=== PATIENT | male | born 1970 | race Caucasian/White ===

== ENCOUNTER 2020-03-09 12:00 | Emergency (ER) | payer OTHER, SELFPAY ==
--- NOTE | 2020-03-09 14:44 | CT_ITS ---
EXAMINATION: CT FACIAL BONES WITH CONTRAST CLINICAL INFORMATION: 49-year-old male patient with left-sided facial swelling. Suspect dental abscess. COMPARISON: None TECHNIQUE: Axial CT of the facial bones following the intravenous administration of 85 mL Omnipaque 350. Coronal and sagittal reformats are obtained at the acquisition workstation. This CT examination was performed using dose optimization techniques as appropriate, variously including the following: *Automated exposure control *Adjustment of mA and/or kV according to patient size (this includes techniques or standardized protocols for targeted exams where dose is matched to indication/reason for exam; i.e. extremities or head) *Use of iterative reconstruction technique DLP: 355 mGy-cm FINDINGS: RN TRANSPLANT: The patient is edentulous except for one sole remaining maxillary fragmented tooth, probably the left maxillary cuspid tooth, #11. The patient has a dumbbell shaped metallic tongue piercing. The significant findings are related to the fragmented left-sided cuspid maxillary tooth. The soft tissue swelling and phlegmonous tissue reaction is seen adjacent to this tooth in addition to osteolysis of the adjacent bone representing osteomyelitis. There is bone destruction of the adjacent maxilla extending to the floor of the left maxillary sinus and also involving portions of the hard palate. Series 6, image 73. This inflammatory process also involves a significant proportion of the left maxillary sinus with abnormal soft tissue enhancement and mucoperiosteal thickening observed. The pterygoid plates are intact. The zygomatic arches are intact. The lamina papyracea are intact. The orbital rims are intact. Orbital contents are normal. Remaining paranasal sinuses are clear. There is mild right-sided deviation of the nasal septum. The ostiomeatal complexes are well aerated. The mastoid air cells and visualized middle ear cavities are well-aerated. Cerumen blocks a portion of the left external auditory canal. The TMJs are unremarkable. The imaged portions of the brain demonstrate no acute abnormality. Small reactive bilateral level 2 lymph nodes are present. The parotid and submandibular glands are homogeneous. There is normal enhancement of the carotid arteries and jugular veins. CT/CT facial bones w con IMPRESSION: The infection of the sole remaining maxillary tooth has resulted in a dental abscess with bone destruction (osteomyelitis) and extension of the inflammatory process into the left maxillary sinus.
--- NOTE | 2020-03-09 14:45 | ED_ITS ---
HPI - Dental/Oral General Chief complaint: General Medical Stated complaint: facial swelling Time Seen by Provider: 03/09/20 14:28 Source: patient Mode of arrival: ambulatory History of Present Illness HPI Narrative: 49-year-old male no significant past medical history presenting to the ED complaining of left-sided facial swelling/pain x 2 days. Reports noted area in mouth with white spot and believes it is infected. Admits had all teeth pulled about 20 years ago, now wears dentures, but has been unable to wear dentures due to pain. Denies fever, chills, sore throat, oral swelling, difficulty swallowing, ear pain MD Complaint: tooth pain Related Data Allergies Allergy/AdvReac Type Severity Reaction Status Date / Time No Known Allergies Allergy Verified 03/09/20 14:43 Review of Systems Review of Systems: Constitutional: No Weight loss, No Fever, No Chills ENT/Mouth: No Ear Pain, No Nasal Congestion, +L sided facial swelling, No Hoarseness, No sore throat, No Swallowing Difficulty, +dental pain Cardiovascular: No Chest Pain, No SOB Respiratory: No Cough Musculoskeletal: No joint pain, No Myalgias, No Joint Swelling Skin: No Skin Lesions, No rash Yes all other systems are reviewed and are negative PMFSH Past Medical History Attestation statement: The following information was validated with the patient. Social History Social History Advance Directives: No Advance Directives Information Provided: No Physical Exam Vital Signs: Vital Signs: Last Vital Signs Temp 98.8 F 03/09/20 15:40 Pulse 90 03/09/20 15:40 Resp 16 03/09/20 15:40 BP 135/84 03/09/20 15:40 Pulse Ox 95 03/09/20 15:40 Body Mass Index 24.7 Const: General: cooperative and healthy appearing Orientation/consciousness: patient oriented x3 Limitations: no limitations HENMT: Other: Left-sided facial swelling with slight erythema noted. +ttp. No fluctuance or induration. Left cupid gum inflamed and erythematous with +ttp. No fluctuance or induration Head: Yes normal to inspection Ears: hearing grossly normal bilaterally, TM normal on the right and TM abnormal obstructed by cerumen on the left General nose exam: Normal external nose present Face and sinus: No crepitus and No fluctuance Mouth: Normal oral and palatal mucosa present Throat: Yes posterior oropharynx normal, Yes tonsils normal and Yes uvula midline Eyes: General: appearance normal, both eyes and all related structures EOM: EOMs intact bilaterally Neck: Neck: Yes normal visual inspection, Yes no lymphadenopathy and Yes no meningeal signs Resp: Effort & Inspection: normal respiratory effort Cardio: Rate: regular rate GI: Inspection: Yes normal to inspection Skin: Rashes: no rashes Wounds: no wounds Neuro: General: patient oriented x3 and no meningeal signs Gait exam (Neuro): Normal gait present Extrem: General: Yes normal to inspection Course Course Course Narrative: * Mild leukocytosis of 13.4. Initial glucose noted to be low 59, patient given p.o. juice and increase to 115. Labs otherwise unremarkable * CT showing infection of the maxillary tooth which resulted in dental abscess with osteomyelitis and extension of inflammatory process into the left maxillary sinus > blood cultures, lactic, IV Zosyn and IV vancomycin ordered > case discussed with our hospitalist however do not have maxillofacial at our facility will attempt transfer to [facility] * 1740- spoke to Dr. Vega maxillofacial surgeon at [facility], will consult on patient, recommends transfer ED to ED * Spoke to ED Dr. Tristan who is accepting physician MDM - Dental/Oral MDM Narrative Medical decision making narrative: 49-year-old male no significant past medical history presenting to the ED complaining of left-sided facial swelling/pain x 2 days. On exam NAD/well-appearing, left cuspid with erythema/swelling +ttp and L facial ttp. Concerning for dental abscess. No appreciable intraoral fluctuance/induration or drainable collection. Plan: Labs, facial CT to rule out abscess Lab Data Result diagrams: 03/09/20 15:13 03/09/20 15:13 Labs: Lab Results 03/09/20 03/09/20 03/09/20 Range/Units 15:13 15:13 16:30 WBC 13.4 H (4.8-10.8) X10*3/uL RBC 5.00 (4.60-5.80) X10*6/uL Hgb 16.4 (14.0-18.0) g/dl Hct 48.4 (42-52) % MCV 96.8 (80-98) fL MCH 32.8 (27.0-33.0) pg MCHC 33.9 (31.0-36.0) g/dl RDW 12.5 (11.0-16.0) % Plt Count 335 (160-400) X10*3/uL MPV 9.5 (9.4-12.4) fL Immature Gran % (Auto) 0.4 (0.0-0.4) % Neut % (Auto) 68.2 (45-73) % Lymph % (Auto) 20.1 (20-40) % Parmer % (Auto) 10.6 (2-11) % Eos % (Auto) 0.3 (0-4) % Baso % (Auto) 0.4 (0-2) % Lymph # (Auto) 2.7 (1.2-4.9) X10*3/uL Parmer # (Auto) 1.4 H (0.1-1.2) X10*3/uL Eos # (Auto) 0.0 (0.0-0.4) X10*3/uL Baso # (Auto) 0.1 (0.0-0.2) X10*3/uL Abs Immat Gran (auto) 0.06 H (0.00-0.03) X10*3/uL Absolute Neuts (auto) 9.1 H (2.0-8.3) X10*3/uL Absolute Nucleated RBC 0.000 (0.0-0.012) X10*3/uL Nucleated RBC % (auto) 0.0 (0.0-0.2) /100WBC Sodium 135 (135-145) mmol/L Potassium 4.0 (3.3-5.1) mmol/l Chloride 97 (96-108) mmol/L Carbon Dioxide 29 (22-29) mmol/L Anion Gap 13 (12-20) BUN 10 (9-16) mg/dL Creatinine 0.77 (0.5-1.4) mg/dL Estim Creat Clear Calc 87.6 Estimated GFR > 60 POC Glucose 115 (60-115) mg/dL Random Glucose 59 L* (60-115) mg/dL Calcium 9.2 (8.4-10.2) mg/dL Discharge Plan Discharge Clinical Impression: Dental abscess, Acute osteomyelitis of maxilla Patient Disposition: [facility]
[2020-03-09 15:21] LABS: Basophils Absolute Auto 0.1 X10*3/uL (0.0-0.2); Basophils Percent Auto 0.4 % (0-2); Eosinophils Percent Auto 0.3 % (0-4); Hematocrit 48.4 % (42-52); Hemoglobin 16.4 g/dl (14.0-18.0); Imm Gran Abs Auto 0.06 X10*3/uL (0.00-0.03); Imm Gran Pct Auto 0.4 % (0.0-0.4); Lymphocytes Absolute Auto 2.7 X10*3/uL (1.2-4.9); Lymphocytes Percent Auto 20.1 % (20-40); MANUAL DIFF FLAG NO; Mean Corpuscular HGB Conc 33.9 g/dl (31.0-36.0); Mean Corpuscular Hemoglobin 32.8 pg (27.0-33.0); Mean Corpuscular Volume 96.8 fL (80-98); Mean Platelet Volume 9.5 fL (9.4-12.4); Monocytes Absolute Auto 1.4 X10*3/uL (0.1-1.2); Monocytes Percent Auto 10.6 % (2-11); Neutrophils Absolute Auto 9.1 X10*3/uL (2.0-8.3); Neutrophils Percent Auto 68.2 % (45-73); Platelet Count 335 X10*3/uL (160-400); Red Cell Distribution Width 12.5 % (11.0-16.0); White Blood Count 13.4 X10*3/uL (4.8-10.8)
[2020-03-09 15:40] VITALS: BP 135/84; PULSE 90; RESP 16; TEMP 37.1; O2SAT 95; BMI 24.7
[2020-03-09 15:51] LABS: Anion Gap 13 (12-20); Blood Urea Nitrogen 10 mg/dL (9-16); Calcium 9.2 mg/dL (8.4-10.2); Carbon Dioxide 29 mmol/L (22-29); Chloride 97 mmol/L (96-108); Creatinine Clr Calc Pharmacy 87.6; Estimated Glomerular Filt Rate > 60; Glucose Random 59 mg/dL (60-115); Sodium 135 mmol/L (135-145)
[2020-03-09] MEDS: iohexoL 350 MG/ML 100 ML INFUS..BTL 85 ML IV (16:22)
--- NOTE | 2020-03-09 16:33 | PC.NURSE ---
apple juice 4 oz given approx. 1600 for bs 59, poc at 1630 bs 115
[2020-03-09 16:34] LABS: Glucose, Whole Blood 115 mg/dL (60-115)
[2020-03-09] MEDS: Piperacillin Sodium/Tazobactam 3.375 GM in 0.9 % Sodium Chloride 50 ML IV (18:03)
[2020-03-09 18:10] LABS: COVID-19 Test Negative (Negative); IDNOW Serial# 9DD0AD1C
[2020-03-09 18:21] LABS: Lactic Acid 0.7 mmol/L (0.5-2.0)
[2020-03-09 18:23] VITALS: BP 132/79; PULSE 92; RESP 18; TEMP 36.8; O2SAT 99
--- NOTE | 2020-03-09 18:25 | PC.NURSE ---
PT EVALED BY PROVIDER. CT SHOWS OSTEO WITH MAXILLARY SINUS, BONE,PALLET INVOLVEMENT. LABS AND BLOOD CULTURES DRAWN. ABX STARTED. PT TO BE TRANSFERED TO [facility] ED CARE OF DR PACK.
[2020-03-09] MEDS: vancomycin HCL 750 MG in 0.9 % Sodium Chloride 250 ML 265 MG IV (18:31)
== END 2020-03-09 19:39 | disposition short-term general hospital (02) ==
PROVIDERS: Physician Assistant; Emergency Provider Emergency Medicine
DX: K04.7 Periapical abscess without sinus (principal); M27.2 Inflammatory conditions of jaws; Z20.828 Contact with and (suspected) exposure to other viral communicable diseases
CPT/HCPCS: 36415; 70487; 80048; 82947; 83605; 85025; 87040; 87635; 96365; 96367; 96375; 99285; J2543; J3370; Q9967

== ENCOUNTER 2020-08-02 08:08 | Outpatient (REF) | payer MEDICARE, MEDICAID, SELFPAY ==
--- NOTE | 2020-08-02 08:58 | MHC.AU.ANR ---
Adult Audiological Evaluation Date of Visit: 08/02/20 Reason for Appointment: Audiological evaluation due to history of hearing loss. Mr. Reyes reports that he first began having problems with his left ear at age 3. He had PE tubes placed ear at age 3. At age 16 he received a donor ear drum for the left ear. He states that the donor ear drum did not last long and he reports that there is significant scare tissue in his left ear. Mr. Reyes has used hearing aids in the past but states that they were lost. He is interested in trying new hearing aids. Does patient feel they have a hearing loss?: Yes If Yes, Which Ear?: Both Ears When Was Hearing Difficulty First Noticed?: 3 years old Has hearing been tested previously?: Yes Previous Hearing Test Results: Previously tested in [place], results not available for review Hearing Handicap Inventory: HHIE SCORE: 32 Based on HHIE score, patient has: Severe perceived hearing handicap Ear History: Ear Infections in Childhood: Left Ear History of Ear Wax Buildup: Left Ear Previous Ear Surgery: Left Ear Bothersome Tinnitus/Ringing/Noises in Ears: Left Ear History of occupational noise exposure?: Yes: 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 Attempted removal, too impacted and deep. Significant impaction remains Tympanometry: Tympanometry performed due to: History of middle ear dysfunction Right Ear: Normal Middle Ear System (Type A) Left Ear: Non-compliant Middle Ear System (Type B) Hearing Evaluation: Transducer(s) Used: Circumaural Headphones, Bone Conduction Method: Conventional Audiometry Stimuli Used: Pure Tones Right Ear: Description of Hearing: Normal hearing from 250-2000 Hz, sloping to a mild to moderately severe sensorineural hearing loss from 6784-2050 Hz. Left Ear: Description of Hearing: Severe conductive hearing loss from 250-500 Hz and a severe to profound mixed hearing loss from 3191-1523 Hz. Speech Recognition Threshold (SRT): Method Used: Monitored Live Voice Stimuli Used: Spondee Words Right Ear: 0 dBHL Left Ear: 80 dBHL, masked Word Discrimination: Method: Recorded Lists Word Lists Used: NU-6 Right Ear: 96% at 60 dBHL Left Ear: 24% at 95 dBHL masked 28% at 100 dBHL masked Recommendations: Audiological re-evaluation in one year. Trial with amplification is recommended. Medical clearance from a physician is required before fitting. Referral to Ear, Nose, and Throat is recommended. After patient sees ENT, he was advised to call our office to schedule a hearing aid evaluation. Diagnosis: Primary Diagnosis: H90.3 Bilateral Sensorineural Hearing Loss Secondary Diagnosis: H61.22 Impacted Cerumen, Left Ear Services Performed: Services Performed: Comprehensive Audiological Evaluation (CPT 11119) Tympanometry (CPT 02876) Signature: Provider: Kaden Pinto, CCC-A
--- NOTE | 2020-08-02 09:00 | MHC.AU.MED ---
Medical Clearance for Hearing Instrumentation Date: 08/04/20 Patient Name: Anthony Reyes Date of : 1970 Primary Care Provider: Referring Provider: Enrico Clemons MD We have seen your patient on 08/04/20 and have determined that they are a candidate for amplification (See accompanying report). Specifically, they would benefit from: Hearing aid use in both ears There is a statute that addresses Medical Evaluation Requirements prior to fitting a patient with a hearing aid. According to [place] statute 265 CMR:6.03(1), (a) General. Except as provided in 265 CMR 6.03(1)(b), a quality lab assoc shall not sell a hearing aid unless the prospective user has presented to the quality lab assoc a written statement signed by a licensed physician that states that the patient's hearing loss has been medically evaluated and the patient may be considered a candidate for a hearing aid. The medical evaluation must have taken place within the preceding six months. Please note: Due to the [place] Statute referenced above, we cannot accept a signature other than that of a licensed physician. TEXTILE CONVERSION MANAGER and PA signatures cannot be accepted. I am in agreement with the above recommendation. There is no medical contraindication for hearing instrumentation. Physician Signature Date Physician Name (Printed)
== END 2020-08-02 08:09 | disposition home or self-care (01) ==
LOC: HO.SH 08:08
PROVIDERS: Visit Provider Internal Medicine
DX: H90.3 Sensorineural hearing loss, bilateral (principal); H61.22 Impacted cerumen, left ear
CPT/HCPCS: 92557; 92567

== ENCOUNTER 2021-09-25 20:25 | Emergency (ER) | payer OTHER, SELFPAY ==
--- NOTE | ~2021-09-25 | XR_ITS ---
EXAMINATION: XR CHEST CLINICAL INFORMATION: Dyspnea COMPARISON: None TECHNIQUE: 2 views of the chest were obtained. FINDINGS: The cardiac and mediastinal contours are normal. The lungs are well inflated. The lungs are clear. There is no pleural effusion or pneumothorax. There are degenerative changes of the spine. XR/XR chest 2V IMPRESSION: Well-inflated lungs. No evidence for acute disease in the chest.
[2021-09-25 20:36] VITALS: BP 142/90; PULSE 112; RESP 16; TEMP 36.9; O2SAT 96; BMI 22.8
--- NOTE | 2021-09-25 20:42 | ECG_ITS ---
Test Reason : cp Blood Pressure : / mmHG Vent. Rate : 099 BPM Atrial Rate : 099 BPM P-R Int : 106 ms QRS Dur : 086 ms QT Int : 326 ms P-R-T Axes : 062 057 037 degrees QTc Int : 418 ms Sinus rhythm with short OK Otherwise normal ECG No previous ECGs available Referred By: Generic ED Physician Electronically Signed By:CLARA GLORIA MD
[2021-09-25 21:29] LABS: Hematocrit 42.6 % (42.0-52.0); Hemoglobin 15.3 g/dl (14.0-18.0); Mean Corpuscular HGB Conc 35.9 g/dl (31.0-36.0); Mean Corpuscular Hemoglobin 33.6 pg (27.0-33.0); Mean Corpuscular Volume 93.6 fL (80.0-98.0); Mean Platelet Volume 9.7 fL (9.4-12.4); Platelet Count 224 X10*3/uL (160-400); Red Blood Count 4.55 X10*6/uL (4.60-5.80); Red Cell Distribution Width 12.4 % (11.0-16.0); White Blood Count 8.3 X10*3/uL (4.8-10.8)
[2021-09-25 21:42] LABS: Anion Gap 17 (12-20); Blood Urea Nitrogen 12 mg/dL (9-16); Calcium 9.3 mg/dL (8.4-10.2); Carbon Dioxide 27 mmol/L (22-29); Chloride 100 mmol/L (96-108); Creatinine Clr Calc Pharmacy 81.3; D Dimer High Sensitivity 153 NG/ML; Estimated Glomerular Filt Rate > 60; Glucose Random 100 mg/dL (60-115); Sodium 140 mmol/L (135-145)
[2021-09-25 21:44] LABS: COVID-19 Test Negative (Negative); IDNOW Serial# 16C4AD1C
[2021-09-25 21:48] LABS: Troponin-I High Sensitivity 5.2 ng/L (<3.5-35.0)
--- NOTE | 2021-09-25 22:41 | ED.SOB ---
HPI - SOB/Dyspnea General Chief Complaint: Dyspnea Stated Complaint: Sob Time Seen by Provider: 09/25/21 22:20 History of Present Illness HPI Narrative: Patient is a 50-year-old male presented today with a long history of smoking. History of coughing upper respiratory symptoms. Having wheezing. Patient claims symptoms been ongoing for months. History of getting his COVID vaccine. Patient complaining of generalized malaise. No fever no chills. No diaphoresis. Patient from home. MD elicited complaint: shortness of breath Pertinent past history: COPD Related Data Previous Rx's Medication Instructions Recorded albuterol sulfate 90 mcg/actuation 2 puff inhalation Q6H PRN 09/25/21 aerosol inhaler shortness of breath or wheezing #8.5 grams prednisone 20 mg tablet 40 mg PO DAILY #10 tabs 09/25/21 Allergies Allergy/AdvReac Type Severity Reaction Status Date / Time No Known Allergies Allergy Verified 09/25/21 20:40 Review of Systems Review of Systems: Positive coughing upper respiratory symptoms Yes all other systems are reviewed and are negative PMFSH Past Medical History Attestation statement: The following information was validated with the patient. Social History Social History Advance Directives: No Physical Exam Vital Signs: Vital Signs: Last Vital Signs Temp 98.5 F 09/25/21 20:36 Pulse 112 H 09/25/21 22:45 Resp 18 09/25/21 22:45 BP 142/90 H 09/25/21 20:36 Pulse Ox 96 09/25/21 20:36 O2 Del Method 09/25/21 20:36 BMI result Body Mass Index 22.8 Appearance: Alert. Oriented X3. No acute distress. Eyes: Pupils equal, round and reactive to light. ENT: Pharynx normal. Neck: Normal inspection. Neck supple. No lymph nodes noted. No crepitus CVS: Normal heart rate and rhythm. Pulses normal. Normal S1 and S2 Respiratory: No respiratory distress. Positive expiratory wheezing noted bilaterally Abdomen: Soft and nontender. No rigidity. No distention. good BS x4 Skin: Skin warm and dry. Normal skin color. Normal skin turgor. Extremities: No lower extremity edema. Neurovascular intact to all extremities. No Lacerations. No Rash Neuro: Oriented X 3. No motor deficit. No sensory deficit. Moving all extermities. No slurred speech MDM - SOB/Dyspnea MDM Narrative Medical decision making narrative: Positive coughing upper respiratory symptoms. Patient's EKG showed a sinus pattern heart rate is 100 NV QRS QT within normal limits is no acute ST segment elevation noted. Chest x-ray showed no focal infiltrate. Patient's COVID test was negative. D-dimer son was low. In the setting of low risk for PE unlikely to have pulmonary emboli. History and symptoms consistent with COPD. Will give a dose of steroid. Will give a neb treatment. Additional albuterol given. Will give steroids on an outpatient basis O2 sats 96% on room air no distress. Patient's troponin is negative. History not consistent with ACS. Does have risk factor being smoking. Still given atypical history negative troponin unlikely ACS. Heart score is less than 3. Will discharge patient home. In stable condition. Medical Records Attestation: I reviewed the patient's medical records. Lab Data Attestation: I reviewed the patient's lab results. Result diagrams: 09/25/21 21:24 09/25/21 21:24 Labs: Lab Results 09/25/21 09/25/21 09/25/21 Range/Units 21:24 21:24 21:24 WBC 8.3 (4.8-10.8) X10*3/uL RBC 4.55 L (4.60-5.80) X10*6/uL Hgb 15.3 (14.0-18.0) g/dl Hct 42.6 (42.0-52.0) % MCV 93.6 (80.0-98.0) fL MCH 33.6 H (27.0-33.0) pg MCHC 35.9 (31.0-36.0) g/dl RDW 12.4 (11.0-16.0) % Plt Count 224 (160-400) X10*3/uL MPV 9.7 (9.4-12.4) fL Absolute Nucleated RBC 0.000 (0.0-0.012) X10*3/uL Nucleated RBC % (auto) 0.0 (0.0-0.2) /100WBC D-Dimer High Sensitivty NG/ML Sodium 140 (135-145) mmol/L Potassium 4.0 (3.3-5.1) mmol/L Chloride 100 (96-108) mmol/L Carbon Dioxide 27 (22-29) mmol/L Anion Gap 17 (12-20) BUN 12 (9-16) mg/dL Creatinine 0.82 (0.5-1.4) mg/dL Estim Creat Clear Calc 81.3 Estimated GFR > 60 Random Glucose 100 D (60-115) mg/dL Calcium 9.3 (8.4-10.2) mg/dL Troponin I High Sens 5.2 (<3.5-35.0) ng/L COVID-19 ([facility]) (Negative) COVID-19 Enhanced [employer] 09/25/21 09/25/21 Range/Units 21:24 21:24 WBC (4.8-10.8) X10*3/uL RBC (4.60-5.80) X10*6/uL Hgb (14.0-18.0) g/dl Hct (42.0-52.0) % MCV (80.0-98.0) fL MCH (27.0-33.0) pg MCHC (31.0-36.0) g/dl RDW (11.0-16.0) % Plt Count (160-400) X10*3/uL MPV (9.4-12.4) fL Absolute Nucleated RBC (0.0-0.012) X10*3/uL Nucleated RBC % (auto) (0.0-0.2) /100WBC D-Dimer High Sensitivty 153 NG/ML Sodium (135-145) mmol/L Potassium (3.3-5.1) mmol/L Chloride (96-108) mmol/L Carbon Dioxide (22-29) mmol/L Anion Gap (12-20) BUN (9-16) mg/dL Creatinine (0.5-1.4) mg/dL Estim Creat Clear Calc Estimated GFR Random Glucose (60-115) mg/dL Calcium (8.4-10.2) mg/dL Troponin I High Sens (<3.5-35.0) ng/L COVID-19 ([facility]) Negative (Negative) COVID-19 Clin Com See Note Discharge Plan Discharge Clinical Impression: COPD (chronic obstructive pulmonary disease) Patient Disposition: Home, Self-Care Instructions: COPD (Chronic Obstructive Pulmonary Disease) (ED) Prescriptions: New prednisone 20 mg tablet 40 mg PO DAILY Qty: 10 0RF albuterol sulfate 90 mcg/actuation HFA aerosol inhaler 2 puff inhalation Q6H PRN (Reason: shortness of breath or wheezing) Qty: 8.5 0RF Referrals: [facility] [place] [Physician] - Physician,None [Primary Care Provider] -
[2021-09-25] MEDS: Albuterol Sulfate 90 MCG 8 GM INHALER 2 PUFF INHALE (22:42)
[2021-09-25] MEDS: Albuterol Sulfate (0.083%) 2.5 MG/3 ML VIAL.NEB INHALE (22:43)
[2021-09-25 22:45] VITALS: PULSE 112; RESP 18; O2SAT 96
[2021-09-25] MEDS: predniSONE 20 MG TABLET 60 MG PO (22:51)
== END 2021-09-25 23:07 | disposition home or self-care (01) ==
PROVIDERS: Emergency Provider Emergency Medicine Emergency Medical Services
DX: J44.9 Chronic obstructive pulmonary disease, unspecified (principal); Z20.822 Contact with and (suspected) exposure to COVID-19; R06.02 Shortness of breath
CPT/HCPCS: 36415; 71046; 80048; 84484; 85027; 85379; 87635; 93005; 94640; 99284

== ENCOUNTER 2022-01-18 21:15 | Emergency (ER) | payer OTHER, SELFPAY ==
--- NOTE | 2022-01-18 | ECG_ITS ---
Test Reason : CHEST PAIN Blood Pressure : / mmHG Vent. Rate : 087 BPM Atrial Rate : 087 BPM P-R Int : 126 ms QRS Dur : 084 ms QT Int : 380 ms P-R-T Axes : 061 047 034 degrees QTc Int : 457 ms Normal sinus rhythm Nonspecific T wave abnormality Anterior leads Abnormal ECG When compared with ECG of 25-SEP-2021 21:10, Nonspecific T wave abnormality now evident in Anterior leads Referred By: Generic ED Physician Electronically Signed By:ASYA ALFRED MD
--- NOTE | ~2022-01-18 | XR_ITS ---
EXAMINATION: XR CHEST CLINICAL INFORMATION: Cough, fever COMPARISON: 09/25/2021 TECHNIQUE: 2 views of the chest were obtained. FINDINGS: The lungs are clear with no focal consolidation. No evidence of pneumothorax, pulmonary edema, or pleural effusions. The cardiomediastinal silhouette is unremarkable. No acute osseous findings. XR/XR chest 2V IMPRESSION: No acute cardiopulmonary findings.
[2022-01-18 23:49] VITALS: BP 115/79; PULSE 85; RESP 16; TEMP 36.6; O2SAT 97; BMI 23.9
--- NOTE | 2022-01-19 00:35 | ED.GENADULT ---
HPI - General Adult General Chief complaint: Dyspnea Stated complaint: Sob Time Seen by Provider: 01/19/22 00:20 Source: patient Limitations: no limitations History of Present Illness HPI narrative: This is a 51-year-old male with a history of COPD, who currentl s be mokes, states he wants to quit, also admits daily alcohol use, who complains of a feeling of shortness of breath and feeling like he has chest pain whenever he tries to cough and his right upper chest. The patient states that it ?feels like cancer?. Patient notes that his mother recently (2 years ago) of pulmonary fibrosis. The patient denies any fever. His cough has been nonproductive. Denies any lower extremity swelling. He does have nausea every morning but notes that he believes this is from alcohol abuse. Denies abdominal pain Related Data Previous Rx's Medication Instructions Recorded albuterol sulfate 90 mcg/actuation 2 puff inhalation Q6H PRN 09/25/21 aerosol inhaler shortness of breath or wheezing #8.5 grams prednisone 20 mg tablet 40 mg PO DAILY #10 tabs 09/25/21 Allergies Allergy/AdvReac Type Severity Reaction Status Date / Time No Known Allergies Allergy Verified 09/25/21 20:40 Review of Systems Review of Systems: Yes all other systems are reviewed and are negative Constitutional: Constitutional: Reports as per HPI and Denies fever(s) Eyes: Eyes: Reports as per HPI and Reports no additional eye complaints ENT: Reports system reviewed and no additional complaints, except as documented, Reports as per HPI, Denies nasal congestion, Denies nasal discharge and Denies sore throat Cardiovascular: Cardiovascular: Reports as per HPI, Reports chest pain and Reports dyspnea Respiratory: Respiratory: Reports as per HPI, Denies cough and Reports dyspnea Gastrointestinal: Gastrointestinal: Reports as per HPI, Denies abdominal pain, Denies diarrhea and Reports vomiting Genitourinary: Genitourinary: Reports as per HPI, Denies hematuria, Denies dysuria and Denies urinary frequency Musculoskeletal: Musculoskeletal: Reports no additional musculoskeletal complaints and Denies numbness Integumentary/Breasts: Skin/Breast: Reports as per HPI and Denies rash Neurologic: Reports as per HPI, Denies focal weakness and Denies numbness Psychiatric: Psychiatric: Reports no additional psychiatric complaints and Reports as per HPI Endocrine: Endocrine: Reports no additional endocrine complaints and Reports as per HPI Hematologic/Lymphatic: Hematologic/Lymphatic: Reports no additional hematologic/lymphatic complaints, Reports as per HPI and Reports other (No peripheral edema) [facility] Social History Social History Advance Directives: No Physical Exam ED Vital Signs: Vital Signs - 24 hr 01/18/22 23:49 01/19/22 00:47 Temperature 97.8 F Pulse Rate 85 81 Respiratory Rate 16 16 Blood Pressure 115/79 Pulse Oximetry 97 Oxygen Delivery Method Room Air BMI result Body Mass Index 23.9 Const Other: Depressed affect. Speaking in full sentences. General: no acute distress Orientation/consciousness: patient oriented x3 HENMT Head: Yes normal to inspection General nose exam: Normal external nose present Mouth: moist mucous membranes Throat: Yes posterior oropharynx normal, Yes tonsils normal and Yes uvula midline Eyes Eyelids: Yes eyelids normal Conjunctivae: conjunctivae normal Pupils: Equal, round and reactive pupils present Neck Neck: Yes supple Resp Other: Mildly decreased breath sounds bilaterally consistent with COPD. Minimal expiratory wheeze Effort & Inspection: normal respiratory effort Auscultation: clear to auscultation bilaterally Cardio Rate: regular rate Rhythm: regular rhythm Heart sounds: S1 normal heart sound present, S2 normal heart sound present, no gallops, no murmurs and no rubs GI Inspection: No distended Palpation (GI): Soft to palpation and nontender Auscultation: normal bowel sounds Skin General skin exam: other (Warm and dry) Neuro General: patient oriented x3 and CN's II-XI intact bilaterally Cranial nerves: Yes Equal, round and reactive pupils present Extrem General: Yes no pedal edema Psych Affect: normal affect Attitude: cooperative Medical Decision Making [facility] Narrative Medical decision making narrative: Patient with a complaint of shortness of breath, and chest pain associated with coughing. Chest x-ray and EKG are normal. Troponin is negative. Patient does have COPD but did not appear to have any respiratory difficulty on exam. Patient was treated with a DuoNeb as well as lorazepam. Patient does have history of substance abuse and admits daily alcohol use. Patient fell asleep and rested for most of the night and is stable for outpatient follow-up Lab Data Result diagrams: 01/19/22 00:41 01/19/22 00:41 Labs: Lab Results 11/06/0701/19/22 01/19/22 Range/Units 00:41 00:41 00:41 WBC 7.2 (4.8-10.8) X10*3/uL RBC 4.52 L (4.60-5.80) X10*6/uL Hgb 15.7 (14.0-18.0) g/dl Hct 45.1 (42.0-52.0) % MCV 99.8 H (80.0-98.0) fL MCH 34.7 H (27.0-33.0) pg MCHC 34.8 (31.0-36.0) g/dl RDW 12.2 (11.0-16.0) % Plt Count 289 D (160-400) X10*3/uL MPV 9.2 L (9.4-12.4) fL Immature Gran % (Auto) 0.3 (0.0-0.4) % Neut % (Auto) 43.9 L (45-73) % Lymph % (Auto) 43.3 H (20-40) % [place] % (Auto) 8.5 (2-11) % Eos % (Auto) 2.7 (0-4) % Baso % (Auto) 1.3 (0-2) % Lymph # (Auto) 3.1 (1.2-4.9) X10*3/uL [place] # (Auto) 0.6 (0.1-1.2) X10*3/uL Eos # (Auto) 0.2 (0.0-0.4) X10*3/uL Baso # (Auto) 0.1 (0.0-0.2) X10*3/uL Abs Immat Gran (auto) 0.02 (0.00-0.03) X10*3/uL Absolute Neuts (auto) 3.2 (2.0-8.3) x10*3/uL Absolute Nucleated RBC 0.000 (0.0-0.012) X10*3/uL Nucleated RBC % (auto) 0.0 (0.0-0.2) /100WBC Troponin I High Sens < 3.5 (<3.5-35.0) ng/L COVID-19 ([facility]) (Negative) COVID-19 Clin Com Influenza Type A ([facility]VI) Negative (Negative) Influenza Type B (TANVI) Negative (Negative) Influenza A & B Note See Note 01/19/22 Range/Units 00:41 WBC (4.8-10.8) X10*3/uL RBC (4.60-5.80) X10*6/uL Hgb (14.0-18.0) g/dl Hct (42.0-52.0) % MCV (80.0-98.0) fL MCH (27.0-33.0) pg MCHC (31.0-36.0) g/dl RDW (11.0-16.0) % Plt Count (160-400) X10*3/uL MPV (9.4-12.4) fL Immature Gran % (Auto) (0.0-0.4) % Neut % (Auto) (45-73) % Lymph % (Auto) (20-40) % [place] % (Auto) (2-11) % Eos % (Auto) (0-4) % Baso % (Auto) (0-2) % Lymph # (Auto) (1.2-4.9) X10*3/uL [place] # (Auto) (0.1-1.2) X10*3/uL Eos # (Auto) (0.0-0.4) X10*3/uL Baso # (Auto) (0.0-0.2) X10*3/uL Abs Immat Gran (auto) (0.00-0.03) X10*3/uL Absolute Neuts (auto) (2.0-8.3) x10*3/uL Absolute Nucleated RBC (0.0-0.012) X10*3/uL Nucleated RBC % (auto) (0.0-0.2) /100WBC Troponin I High Sens (<3.5-35.0) ng/L COVID-19 ([facility]) Negative (Negative) COVID-19 Clin Com See Note Influenza Type A (TANVI) (Negative) Influenza Type B (TANVI) (Negative) Influenza A & B Note Imaging Data Chest x-ray two view: Radiologist's impression: IMPRESSION: No acute cardiopulmonary findings. ECG Data Attestation: I personally reviewed and interpreted this ECG as follows: Interpretation: Sinus rhythm with a rate of 87. No ST elevation or depression. Normal QRS axis. Normal EKG Discharge Plan Discharge Clinical Impression: COPD (chronic obstructive pulmonary disease), Substance abuse Patient Disposition: Home, Self-Care Instructions: COPD (Chronic Obstructive Pulmonary Disease) (ED), Alcohol Use Disorder (ED) Additional Instructions: Find an outpatient detox center to help with her alcohol addiction. Follow-up with her primary care physician. Your chest x-ray was normal. Quit tobacco smoking Prescriptions: No Action prednisone 20 mg tablet 40 mg PO DAILY Qty: 10 0RF albuterol sulfate 90 mcg/actuation HFA aerosol inhaler 2 puff inhalation Q6H PRN (Reason: shortness of breath or wheezing) Qty: 8.5 0RF
[2022-01-19] MEDS: Albuterol/Iprat 2.5/0.5MG 3 ML AMPUL.NEB INHALE (00:45)
[2022-01-19 00:47] VITALS: PULSE 81; RESP 16; O2SAT 94
[2022-01-19 00:52] LABS: MANUAL DIFF FLAG NO
[2022-01-19 00:53] LABS: Basophils Absolute Auto 0.1 X10*3/uL (0.0-0.2); Basophils Percent Auto 1.3 % (0-2); Eosinophils Absolute Auto 0.2 X10*3/uL (0.0-0.4); Eosinophils Percent Auto 2.7 % (0-4); Hematocrit 45.1 % (42.0-52.0); Hemoglobin 15.7 g/dl (14.0-18.0); Imm Gran Abs Auto 0.02 X10*3/uL (0.00-0.03); Imm Gran Pct Auto 0.3 % (0.0-0.4); Lymphocytes Absolute Auto 3.1 X10*3/uL (1.2-4.9); Lymphocytes Percent Auto 43.3 % (20-40); Mean Corpuscular HGB Conc 34.8 g/dl (31.0-36.0); Mean Corpuscular Hemoglobin 34.7 pg (27.0-33.0); Mean Corpuscular Volume 99.8 fL (80.0-98.0); Mean Platelet Volume 9.2 fL (9.4-12.4); Monocytes Absolute Auto 0.6 X10*3/uL (0.1-1.2); Monocytes Percent Auto 8.5 % (2-11); Neutrophils Absolute Auto 3.2 x10*3/uL (2.0-8.3); Neutrophils Percent Auto 43.9 % (45-73); Platelet Count 289 X10*3/uL (160-400); Red Blood Count 4.52 X10*6/uL (4.60-5.80); Red Cell Distribution Width 12.2 % (11.0-16.0); White Blood Count 7.2 X10*3/uL (4.8-10.8)
[2022-01-19 01:09] LABS: COVID-19 Test Negative (Negative); IDNOW Serial# 16C4AD1C; Influenza A Negative (Negative); Influenza B2 Negative (Negative)
[2022-01-19 01:13] LABS: Troponin-I High Sensitivity < 3.5 ng/L (<3.5-35.0)
[2022-01-19] MEDS: LORazepam 0.5 MG TABLET PO (05:42)
== END 2022-01-19 05:52 | disposition home or self-care (01) ==
PROVIDERS: Emergency Provider Emergency Medicine
DX: J44.9 Chronic obstructive pulmonary disease, unspecified (principal); R06.02 Shortness of breath; F19.10 Other psychoactive substance abuse, uncomplicated; Z20.822 Contact with and (suspected) exposure to COVID-19; F10.10 Alcohol abuse, uncomplicated; F17.210 Nicotine dependence, cigarettes, uncomplicated; Y90.9 Presence of alcohol in blood, level not specified
CPT/HCPCS: 36415; 71046; 80053; 84484; 85025; 87502; 87635; 93005; 94640; 99284

== ENCOUNTER 2022-06-05 16:27 | Emergency (ER) | payer OTHER, SELFPAY ==
--- NOTE | ~2022-06-05 | XR_ITS ---
EXAMINATION: XR CHEST CLINICAL INFORMATION: Shortness of breath COMPARISON: 01/19/2022 TECHNIQUE: Frontal view of the chest was obtained. FINDINGS: No significant abnormality is noted involving the heart, lungs, mediastinum, bony thorax or soft tissues. XR/XR chest 1V IMPRESSION: Unremarkable examination.
--- NOTE | ~2022-06-05 | CT_ITS ---
EXAMINATION: CT CHEST WITHOUT CONTRAST CLINICAL INFORMATION: Left-sided rib pain COMPARISON: Chest x-ray 06/05/2022 TECHNIQUE: Multidetector volumetric CT imaging of the chest was done. Axial MIP volume rendering provided. Sagittal and coronal reformatted images were obtained. This CT examination was performed using dose optimization techniques as appropriate, variously including the following: *Automated exposure control *Adjustment of mA and/or kV according to patient size (this includes techniques or standardized protocols for targeted exams where dose is matched to indication/reason for exam; i.e. 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 LUNGS: The lungs are well-expanded and clear acute pneumonic process. There are punctate 1 mm calcifications scattered in left upper lobe, left lower lobe and right lower lobe. No noncalcified pulmonary nodules seen. No groundglass density, atelectasis or scarring. MEDIASTINUM: The thyroid lobes are symmetrical and normal. The central trachea and the bronchi widely patent. There are small scattered shotty lymph nodes in the mediastinum. Heart size and the great vessels are normal caliber. No pericardial effusion seen. CORONARY ARTERY CALCIFICATION: Minimal calcification is seen in the left coronary artery. PLEURA: There is no pleural effusion. No pleural mass or thickening. AXILLA: Are small shotty right axillary lymph nodes seen. Largest lymph node right axilla measures 8mm. UPPER ABDOMEN: Visualized liver, spleen, pancreas, bilateral adrenal glands are unremarkable. There are no radiopaque gallstones. OSSEOUS STRUCTURES: No aggressive lytic or sclerotic process seen. CT/CT chest wo IV con IMPRESSION: 1. No acute cardiopulmonary process seen. 2. Punctate calcifications in the left upper lobe, left lower lobe and right lower lobe. Fleischner guidelines were followed.
[2022-06-05 16:29] VITALS: BP 147/103; PULSE 139; RESP 22; TEMP 36.6; O2SAT 98; BMI 23.9
--- NOTE | 2022-06-05 16:29 | ECG_ITS ---
Test Reason : CHEST PAIN Blood Pressure : / mmHG Vent. Rate : 085 BPM Atrial Rate : 085 BPM P-R Int : 126 ms QRS Dur : 080 ms QT Int : 356 ms P-R-T Axes : 051 042 039 degrees QTc Int : 423 ms Normal sinus rhythm Normal ECG When compared with ECG of 19-JAN-2022 00:18, No significant change was found Referred By: Migue Gramajo Electronically Signed By:CLARA GLORIA MD
--- NOTE | 2022-06-05 16:33 | ED.GENADULT ---
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 (Negative) Influenza A & B Note See Note 06/05/22 06/05/22 06/05/22 Range/Units 16:50 16:50 16:50 WBC (4.8-10.8) X10*3/uL RBC (4.60-5.80) X10*6/uL Hgb (14.0-18.0) g/dl Hct (42.0-52.0) % MCV (80.0-98.0) fL MCH (27.0-33.0) pg MCHC (31.0-36.0) g/dl RDW (11.0-16.0) % Plt Count (160-400) X10*3/uL MPV (9.4-12.4) fL Immature Gran % (Auto) (0.0-0.4) % Neut % (Auto) (45-73) % Lymph % (Auto) (20-40) % [place] % (Auto) (2-11) % Eos % (Auto) (0-4) % Baso % (Auto) (0-2) % Lymph # (Auto) (1.2-4.9) X10*3/uL [place] # (Auto) (0.1-1.2) X10*3/uL Eos # (Auto) (0.0-0.4) X10*3/uL Baso # (Auto) (0.0-0.2) X10*3/uL Abs Immat Gran (auto) (0.00-0.03) X10*3/uL Absolute Neuts (auto) (2.0-8.3) x10*3/uL Absolute Nucleated RBC (0.0-0.012) X10*3/uL Nucleated RBC % (auto) (0.0-0.2) /100WBC D-Dimer High Sensitivty < 150 NG/ML Sodium (135-145) mmol/L Potassium (3.3-5.1) mmol/L Chloride (96-108) mmol/L Carbon Dioxide (22-29) mmol/L Anion Gap (12-20) BUN (9-16) mg/dL Creatinine (0.5-1.4) mg/dL Estim Creat Clear Calc Estimated GFR Random Glucose (60-115) mg/dL Calcium (8.4-10.2) mg/dL Magnesium (1.6-2.6) mg/dL Total Bilirubin (0.0-1.0) mg/dL AST (5-37) U/L ALT (0-40) U/L Alkaline Phosphatase (39-117) U/L Total Creatine Kinase (38-174) U/L Troponin I High Sens (<3.5-35.0) ng/L B-Natriuretic Peptide 12 (<100) pg/mL Total Protein (6.5-8.0) g/dL Albumin (3.5-5.0) g/dL Lipase (8-78) U/L Ethyl Alcohol mg/dL COVID-19 ([facility]) Negative (Negative) COVID-19 Clin Com See Note Influenza Type A ([facility]) (Negative) Influenza Type B ([facility]VI) (Negative) Influenza A & B Note 06/05/22 06/05/22 Range/Units 16:50 17:36 WBC (4.8-10.8) X10*3/uL RBC (4.60-5.80) X10*6/uL Hgb (14.0-18.0) g/dl Hct (42.0-52.0) % MCV (80.0-98.0) fL MCH (27.0-33.0) pg MCHC (31.0-36.0) g/dl RDW (11.0-16.0) % Plt Count (160-400) X10*3/uL MPV (9.4-12.4) fL Immature Gran % (Auto) (0.0-0.4) % Neut % (Auto) (45-73) % Lymph % (Auto) (20-40) % [place] % (Auto) (2-11) % Eos % (Auto) (0-4) % Baso % (Auto) (0-2) % Lymph # (Auto) (1.2-4.9) X10*3/uL [place] # (Auto) (0.1-1.2) X10*3/uL Eos # (Auto) (0.0-0.4) X10*3/uL Baso # (Auto) (0.0-0.2) X10*3/uL Abs Immat Gran (auto) (0.00-0.03) X10*3/uL Absolute Neuts (auto) (2.0-8.3) x10*3/uL Absolute Nucleated RBC (0.0-0.012) X10*3/uL Nucleated RBC % (auto) (0.0-0.2) /100WBC D-Dimer High Sensitivty NG/ML Sodium (135-145) mmol/L Potassium (3.3-5.1) mmol/L Chloride (96-108) mmol/L Carbon Dioxide (22-29) mmol/L Anion Gap (12-20) BUN (9-16) mg/dL Creatinine (0.5-1.4) mg/dL Estim Creat Clear Calc Estimated GFR Random Glucose (60-115) mg/dL Calcium (8.4-10.2) mg/dL Magnesium (1.6-2.6) mg/dL Total Bilirubin (0.0-1.0) mg/dL AST (5-37) U/L ALT (0-40) U/L Alkaline Phosphatase (39-117) U/L Total Creatine Kinase (38-174) U/L Troponin I High Sens < 3.5 (<3.5-35.0) ng/L B-Natriuretic Peptide (<100) pg/mL Total Protein (6.5-8.0) g/dL Albumin (3.5-5.0) g/dL Lipase 23 (8-78) U/L Ethyl Alcohol mg/dL COVID-19 ([facility]) (Negative) COVID-19 Clin Com Influenza Type A ([facility]VI) (Negative) Influenza Type B ([facility]VI) (Negative) Influenza A & B Note <Hank Quevedo MD - Last Filed: 06/05/22 19:35> Independent Interpretation I performed an independent interpretation of an: EKG <Hank Quevedo MD - Last Filed: 06/05/22 19:35> Radiology Impression Radiologist Impression: Normal sinus rhythm heart rate 85 beats per minute normal interval normal axis no acute ST changes no acute ischemia <Hank Quevedo MD - Last Filed: 06/05/22 19:35> Discharge Plan Discharge Clinical Impression: Alcoholic intoxication, Chest wall contusion <JUAN JOSE Kahn - Last Filed: 06/05/22 16:40> Patient Disposition: Home, Self-Care <JUAN JOSE Kahn - Last Filed: 06/05/22 16:40> Instructions: Acute Bronchitis (ED), Rib Contusion (ED), Alcohol Use Disorder (ED) <JUAN JOSE Kahn - Last Filed: 06/05/22 16:40> Additional Instructions: Continue use your inhaler 2 puffs every 4-6 hours as needed Prednisone and antibiotic as prescribed Cough drops as prescribed Pain medication as prescribed Ativan for alcohol withdrawal and anxiety Follow-up with detox <JUAN JOSE Kahn - Last Filed: 06/05/22 16:40> Prescriptions: New benzonatate 200 mg capsule 200 mg PO TID PRN (Reason: cough) Qty: 30 0RF prednisone 20 mg tablet 40 mg PO DAILY Qty: 10 0RF cefuroxime axetil 500 mg tablet 500 mg PO BID Qty: 20 0RF albuterol sulfate [ProAir HFA] 90 mcg/actuation HFA aerosol inhaler 2 puff inhalation Q4-6H PRN (Reason: shortness of breath or wheezing) Qty: 8.5 0RF doxycycline hyclate 100 mg tablet 100 mg PO BID Qty: 20 0RF ibuprofen 600 mg tablet 600 mg PO Q6H PRN (Reason: fever or pain) Qty: 30 0RF lorazepam [Ativan] 1 mg tablet 1 mg PO TID PRN (Reason: alcohol withdrawal) Qty: 20 0RF No Action prednisone 20 mg tablet 40 mg PO DAILY Qty: 10 0RF albuterol sulfate 90 mcg/actuation HFA aerosol inhaler 2 puff inhalation Q6H PRN (Reason: shortness of breath or wheezing) Qty: 8.5 0RF <JUAN JOSE Kahn - Last Filed: 06/05/22 16:40> Interventions: Larue-Suicide Risk Severity Scale Last Done: 06/05/22 17:09 <JUAN JOSE Kahn - Last Filed: 06/05/22 16:40>
[2022-06-05 17:01] LABS: MANUAL DIFF FLAG NO
[2022-06-05 17:03] LABS: Basophils Percent Auto 0.5 % (0-2); Eosinophils Absolute Auto 0.1 X10*3/uL (0.0-0.4); Eosinophils Percent Auto 1.4 % (0-4); Hematocrit 44.1 % (42.0-52.0); Hemoglobin 15.7 g/dl (14.0-18.0); Imm Gran Abs Auto 0.02 X10*3/uL (0.00-0.03); Imm Gran Pct Auto 0.3 % (0.0-0.4); Lymphocytes Absolute Auto 2.9 X10*3/uL (1.2-4.9); Lymphocytes Percent Auto 37.9 % (20-40); Mean Corpuscular HGB Conc 35.6 g/dl (31.0-36.0); Mean Corpuscular Hemoglobin 34.7 pg (27.0-33.0); Mean Corpuscular Volume 97.4 fL (80.0-98.0); Mean Platelet Volume 9.6 fL (9.4-12.4); Monocytes Absolute Auto 0.7 X10*3/uL (0.1-1.2); Monocytes Percent Auto 8.9 % (2-11); Neutrophils Absolute Auto 3.9 x10*3/uL (2.0-8.3); Platelet Count 218 X10*3/uL (160-400); Red Blood Count 4.53 X10*6/uL (4.60-5.80); Red Cell Distribution Width 12.2 % (11.0-16.0); White Blood Count 7.6 X10*3/uL (4.8-10.8)
[2022-06-05] MEDS: 0.9 % Sodium Chloride 1,000 ML 999 ML IV (17:08)
[2022-06-05] MEDS: LORazepam 1 MG TABLET 2 MG PO ×2 (17:08→19:33)
[2022-06-05] MEDS: LORazepam 1 MG TABLET PO (17:08)
[2022-06-05 17:17] LABS: Alanine Aminotransferase 40 U/L (0-40); Albumin Level 4.6 g/dL (3.5-5.0); Alkaline Phosphatase 92 U/L (39-117); Anion Gap 16 (12-20); Aspartate Amino Transferase 55 U/L (5-37); Bilirubin Total 1.2 mg/dL (0.0-1.0); Blood Urea Nitrogen 17 mg/dL (9-16); Calcium 9.7 mg/dL (8.4-10.2); Carbon Dioxide 27 mmol/L (22-29); Chloride 102 mmol/L (96-108); Estimated Glomerular Filt Rate > 60; Ethanol 162 mg/dL; Glucose Random 97 mg/dL (60-115); Magnesium 2.1 mg/dL (1.6-2.6); Potassium 3.3 mmol/L (3.3-5.1); Sodium 142 mmol/L (135-145); Total Protein 7.9 g/dL (6.5-8.0)
[2022-06-05 17:24] LABS: B Type Natriuretic Peptide 12 pg/mL (<100); COVID-19 Test Negative (Negative); IDNOW Serial# 08D9AD1C; IDNOW Serial# 9DB6401D; Influenza A Negative (Negative); Influenza B2 Negative (Negative)
[2022-06-05 17:25] LABS: D Dimer High Sensitivity < 150 NG/ML
[2022-06-05 17:32] LABS: Troponin-I High Sensitivity < 3.5 ng/L (<3.5-35.0)
[2022-06-05 18:10] VITALS: PULSE 84; RESP 9; O2SAT 96
[2022-06-05 18:11] LABS: Lipase 23 U/L (8-78)
[2022-06-05 18:24] VITALS: BP 125/75; PULSE 88; RESP 14; TEMP 36.7; O2SAT 94
[2022-06-05] MEDS: Thiamine HCL 100 MG TABLET PO (19:04)
[2022-06-05] MEDS: guaiFEN/Codeine SF 200/20/10ML 10 ML LIQUID PO (19:05)
[2022-06-05] MEDS: Doxycycline Monohydrate 100 MG CAPSULE PO (19:30)
[2022-06-05] MEDS: dexAMETHasone 2 MG TABLET 10 MG PO (19:30)
== END 2022-06-05 19:37 | disposition home or self-care (01) ==
PROVIDERS: Nurse Practitioner Family; Physician Assistant; Emergency Provider Internal Medicine
DX: F10.129 Alcohol abuse with intoxication, unspecified (principal); Y90.6 Blood alcohol level of 120-199 mg/100 ml; S20.212A Contusion of left front wall of thorax, initial encounter; X58.XXXA Exposure to other specified factors, initial encounter; Y93.9 Activity, unspecified; Y92.9 Unspecified place or not applicable; Y99.9 Unspecified external cause status; F17.200 Nicotine dependence, unspecified, uncomplicated; J44.9 Chronic obstructive pulmonary disease, unspecified; Z20.822 Contact with and (suspected) exposure to COVID-19
CPT/HCPCS: 36415; 71045; 71250; 80053; 82077; 82550; 83690; 83735; 83880; 84484; 85025; 85379; 87502; 87635; 93005; 94640; 96360; 96361; 99285; J8540

== ENCOUNTER 2022-11-14 09:54 | Emergency (ER) | payer OTHER, SELFPAY ==
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
[2022-11-14 09:58] VITALS: BP 140/89; PULSE 84; RESP 16; TEMP 37.2; O2SAT 98; BMI 24.8
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
[2022-11-14 13:50] VITALS: RESP 18
--- NOTE | 2022-11-14 16:02 | PC.NURSE ---
md shaffer aware pt not in room multiple times when staff came to update pt and then d/c. care clinical team lead also tried to see pt but was not in room. pt left w/o instructions or update VS as a result. pt was calm, coopeartive, aox4, appeared to be in less pain.
--- NOTE | 2022-11-15 12:55 | MHC.RECOVSUP ---
Attempted to meet with pt who is here For CLEMENTE, however pt had eloped and was not in the room when I checked.
== END 2022-11-14 15:35 | disposition left against medical advice (07) ==
PROVIDERS: Emergency Provider Student in an Organized Health Care Education/Training Program
DX: S80.212A Abrasion, left knee, initial encounter (principal); M25.462 Effusion, left knee; F10.10 Alcohol abuse, uncomplicated; M25.522 Pain in left elbow; Y90.9 Presence of alcohol in blood, level not specified; X58.XXXA Exposure to other specified factors, initial encounter; Y93.9 Activity, unspecified; Y92.9 Unspecified place or not applicable; Y99.9 Unspecified external cause status; Z79.899 Other long term (current) drug therapy
CPT/HCPCS: 73560; 99284

== ENCOUNTER 2023-01-19 08:31 | Inpatient (IN) | payer MEDICARE, MEDICAID, SELFPAY ==
[2023-01-19] VITALS (12 sets, daily range): BP systolic 99–177; BP diastolic 59–107; PULSE 81–118; RESP 13–23; TEMP 36.1–36.8; O2SAT 86–99; BMI 26.4
--- NOTE | ~2023-01-19 | XR_ITS ---
EXAMINATION: XR CHEST CLINICAL INFORMATION: Dyspnea COMPARISON: Chest x-ray and CT chest 06/05/2022 TECHNIQUE: Frontal view of the chest was obtained. FINDINGS: No significant abnormality is noted involving the heart, lungs, mediastinum, bony thorax or soft tissues. XR/XR chest 1V IMPRESSION: Unremarkable chest examination.
--- NOTE | 2023-01-19 08:42 | ECG_ITS ---
Test Reason : DYSPNEA Blood Pressure : / mmHG Vent. Rate : 098 BPM Atrial Rate : 098 BPM P-R Int : 118 ms QRS Dur : 086 ms QT Int : 326 ms P-R-T Axes : 060 021 038 degrees QTc Int : 416 ms Normal sinus rhythm Nonspecific ST and T wave abnormality Abnormal ECG When compared with ECG of 05-JUN-2022 17:18, T wave amplitude has decreased in Inferior leads ST more depressed Lateral leads Referred By: Jaelyn Gibbs Electronically Signed By:ASYA ALFRED MD
--- NOTE | 2023-01-19 08:50 | ED_ITS ---
HPI - Alcohol General Chief Complaint: General Medical Stated Complaint: Diff Breathing COPD Time Seen by Provider: 01/19/23 08:35 Source: patient and old records reviewed Mode of arrival: ambulatory Limitations: other (agitated and hard to interview) History of Present Illness HPI narrative: 52 yomale with PMH of COPD states my inhalers don't work he still smokes daily, chronic ETOH abuse who drinks a sleeve + a day and now wants to stop drinking though took a shot before arrival comes in with c/o feeling jittery, anxiety and he cannot breathe with a chronic cough. He notes no pain, feels his abdomen is swollen. He is agitated and hard to interview. States he has been seen for his COPD here before in the past. He states he is in alcohol withdrawal. He denies drug abuse states he is compliant with his suboxone, denies prior pneumonia or fevers. MD complaint: alcohol withdrawal Last drink: Hours (ago) Chronic alcohol use: Yes Previous visits for alcohol intoxication: Yes Recent trauma: No Associated symptoms: tremors and other (shortness of breath, cough) Treatments prior to arrival: none Related Data Previous Rx's Medication Instructions Recorded albuterol sulfate 90 mcg/actuation 2 puff inhalation Q6H PRN 09/25/21 aerosol inhaler shortness of breath or wheezing #8.5 grams prednisone 20 mg tablet 40 mg (2 x 20 mg) PO DAILY #10 tabs 09/25/21 albuterol sulfate 90 mcg/actuation 2 puff inhalation Q4-6H PRN 06/05/22 aerosol inhaler (ProAir HFA) shortness of breath or wheezing #8.5 grams benzonatate 200 mg capsule 200 mg PO TID PRN cough #30 caps 06/05/22 cefuroxime axetil 500 mg tablet 500 mg PO BID #20 tabs 06/05/22 doxycycline hyclate 100 mg tablet 100 mg PO BID #20 tabs 06/05/22 ibuprofen 600 mg tablet 600 mg PO Q6H PRN fever or pain 06/05/22 #30 tabs lorazepam 1 mg tablet (Ativan) 1 mg PO TID PRN alcohol withdrawal 06/05/22 #20 tabs prednisone 20 mg tablet 40 mg (2 x 20 mg) PO DAILY #10 tabs 06/05/22 Allergies Allergy/AdvReac Type Severity Reaction Status Date / Time No Known Allergies Allergy Verified 09/25/21 20:40 Review of Systems 2 Review of Systems: Constitutional : No Fever, No Chills ENT/Mouth : No sore throat, No Rhinorrhea, No Swallowing Difficulty Eyes: No Eye Pain, No Swelling, No Redness Cardiovascular : No Chest Pain, positive SOB, No Orthopnea, no edema Respiratory :pos Cough, No Sputum, pos Wheezing, positive dyspnea Gastrointestinal : No Nausea, No Vomiting, No Diarrhea, No abdominal Pain, No Hematochezia, No Melena Genitourinary : No Dysuria, No Urinary Frequency, No Hematuria Musculoskeletal : No joint pain, No Myalgias Skin : No Skin Lesions, No rash Neuro : No Weakness, No Numbness, No Dizziness, No Headache Psych :pos Anxiety/Panic, No Depression Heme/Lymph: No Bruising, No Lymphadenopathy Endocrine : No Polyuria, No Polydipsia All other systems reviewed and are negative [facility] Past Medical History Attestation statement: The following information was validated with the patient. Medical History (Updated 01/19/23 @ 10:46 by Jaelyn Gibbs DO) Amputation above knee Opiate dependence Alcohol abuse COPD (chronic obstructive pulmonary disease) Social History Social History Alcohol intake: current Alcohol intake frequency: 3 or more drinks per day Alcohol type: hard liquor Smoked in Last 30 Days: Yes Use of substances other than those prescribed or required for medical reasons: Yes Substance Use Type: Marijuana Advance Directives: No Advance Directives Information Provided: Yes Physical Exam ED Vital Signs: Vital Signs - 24 hr 01/19/23 08:38 01/19/23 08:53 01/19/23 08:59 Temperature 98.3 F Pulse Rate 118 H 106 H 102 H Respiratory Rate 16 23 H 16 Blood Pressure 177/107 H 146/96 H Pulse Oximetry 97 91 L Oxygen Delivery Method Room Air Room Air Oxygen Flow Rate 01/19/23 10:20 01/19/23 10:26 01/19/23 10:26 Temperature Pulse Rate 81 84 Respiratory Rate 14 14 Blood Pressure 101/66 102/62 Pulse Oximetry 88 L 86 L 91 L Oxygen Delivery Method Room Air Room Air Nasal Cannula Oxygen Flow Rate 2 01/19/23 10:41 Temperature Pulse Rate 92 Respiratory Rate 16 Blood Pressure Pulse Oximetry Oxygen Delivery Method Oxygen Flow Rate BMI result Body Mass Index 26.4 Appearance: Alert. Oriented X3. Mild acute distress. anxious speaking fast in full sentences agitated Eyes: Pupils equal, round and reactive to light. ENT: Pharynx normal. Neck: Normal inspection. Neck supple. CVS: tachycardic heart rate and rhythm. Pulses normal. Respiratory: No respiratory distress. Breath sounds mildly diminished Abdomen: Soft and non-tender. Skin: Skin warm and dry. Normal skin color. Normal skin turgor. Extremities: No lower extremity edema. No calf ttp Neuro: Oriented X 3. No motor deficit. No sensory deficit. tremors and restless Course Course Course Narrative: will need admission for COPD and hypoxia still hypoxic after 2nd treatment ETOh abuse at this time given COPD exacerbation will obtain lactic acid cultures and start on empiric treatments [id number] possible infection suspected Medical Decision Making Medical Decision Making [facility] Narrative: 52 yomale with PMH of COPD states my inhalers don't work , daily smoker, chronic ETOH abuse here with c/o not being able to breathe getting worse for months, ETOH withdrawal symptoms daily worse today, anxiety he is crying during the interview - at this time labs, CXR, EKG and IV thiamine, magnesium, steroids, duoneb and IV ativan ordered. He is somewhat hard to interview as he is agitated with questions. He does have tremors on exam so IV ativan ordered. He may require admission for ETOH withdrawal Differential Diagnosis Differential Diagnoses: The differential diagnosis associated with the presentation includes etoh withdrawal, reactive airway disease, lyte abnormality Admission/Observation Consideration of admission/observation: Escalation of care including admission/observation considered admit for hypoxia, COPD, ETOH abuse Consult Healthcare Provider Management of the patient was discussed with: Hospitalist (will admit) Lab Data [facility] Lab Attestation statement: I reviewed the patient's lab results. 01/19/23 08:50 01/19/23 08:50 Labs: Lab Results 01/19/23 01/19/23 01/19/23 Range/Units 08:50 08:51 09:39 WBC 6.3 (4.8-10.8) X10*3/uL RBC 4.35 L (4.60-5.80) X10*6/uL Hgb 14.8 (14.0-18.0) g/dl Hct 41.7 L (42.0-52.0) % MCV 95.9 (80.0-98.0) fL MCH 34.0 H (27.0-33.0) pg MCHC 35.5 (31.0-36.0) g/dl RDW 13.6 (11.0-16.0) % Plt Count 232 (160-400) X10*3/uL MPV 8.8 L (9.4-12.4) fL Immature Gran % (Auto) 0.2 (0.0-0.4) % Neut % (Auto) 32.0 L (45-73) % Lymph % (Auto) 54.8 H (20-40) % [place] % (Auto) 8.7 (2-11) % Eos % (Auto) 3.0 (0-4) % Baso % (Auto) 1.3 (0-2) % Lymph # (Auto) 3.5 (1.2-4.9) X10*3/uL [place] # (Auto) 0.6 (0.1-1.2) X10*3/uL Eos # (Auto) 0.2 (0.0-0.4) X10*3/uL Baso # (Auto) 0.1 (0.0-0.2) X10*3/uL Abs Immat Gran (auto) 0.01 (0.00-0.03) X10*3/uL Absolute Neuts (auto) 2.0 (2.0-8.3) x10*3/uL Absolute Nucleated RBC 0.000 (0.0-0.012) X10*3/uL Nucleated RBC % (auto) 0.0 (0.0-0.2) /100WBC Sodium 142 (135-145) mmol/L Potassium 2.9 L (3.3-5.1) mmol/L Chloride 102 (96-108) mmol/L Carbon Dioxide 28 (22-29) mmol/L Anion Gap 15 (12-20) BUN 11 (9-16) mg/dL Creatinine 0.81 (0.5-1.4) mg/dL Estim Creat Clear Calc 83.9 Estimated GFR > 60 Random Glucose 148 H (60-115) mg/dL Calcium 9.3 (8.4-10.2) mg/dL Magnesium 1.9 (1.6-2.6) mg/dL Total Bilirubin 0.5 (0.0-1.0) mg/dL Direct Bilirubin 0.2 (0.0-0.5) mg/dL AST 115 H (5-37) U/L ALT 92 H (0-40) U/L Alkaline Phosphatase 105 (39-117) U/L Troponin I High Sens < 2.7 (<3.5-35.0) ng/L B-Natriuretic Peptide 19 (<100) pg/mL Total Protein 7.7 (6.5-8.0) g/dL Albumin 4.3 (3.5-5.0) g/dL Lipase 43 (8-78) U/L Urine Color Dark Yellow Urine Appearance Clear Urine pH 6.5 (5.0-9.0) Ur Specific [place] >= 1.030 H (1.005-1.025) Urine Protein 100 (2+) H (Neg-Trace) mg/dL Urine Glucose (UA) Negative (Negative) mg/dL Urine Ketones Negative (Negative) mg/dL Urine Blood Trace H (Negative) Urine Nitrite Negative (Negative) Ur Leukocyte Esterase Negative (Negative) Urine RBC 6-10 H (0-2) /HPF Urine WBC 0-5 (0-5) /HPF Ur Squamous Epith Cells 0-2 (0-2) /HPF Urine Bacteria None Seen (None Seen) Hyaline Casts 0-2 (0-2) /LPF Urine Opiates Screen Not Detected (Not Detect) Urine Fentanyl Screen Not Detected (Not Detect) Ur Barbiturates Screen Not Detected (Not Detect) Ur Phencyclidine Scrn Not Detected (Not Detect) Ur Amphetamines Screen Not Detected (Not Detect) U Benzodiazepines Scrn Not Detected (Not Detect) Urine Cocaine Screen Not Detected (Not Detect) U Marijuana (THC) Screen POSITIVE H (Not Detect) Ethyl Alcohol 347 H* mg/dL COVID-19 ([facility]) Negative (Negative) COVID-19 Clin Com See Note Independent Interpretation I performed an independent interpretation of an: EKG and Plain X-Ray (no pneumonia) Interpretation: Rate: 98 Rhythm: NSR [place]: normal Normal P waves. Normal [place]. Normal QRS complex. ST T wave : artifact no UDAY, nonspecific lateral leads qTC: normal prior studies: no sig ischemia The study has been interpreted contemporaneously by me. . Radiology Impression Discussion of test interpretation with radiology: I have reviewed the radiologist's reading. External Record Review External record reviewed: Inpatient record Medications Administered Generic Name Dose Route Start Last Admin Trade Name Freq PRN Reason Stop Dose Admin Potassium Chloride 10 meq in 100 mls @ 100 mls/hr 01/19/23 09:30 01/19/23 10:56 Potassium Chloride/H20 IV 01/19/23 11:29 100 mls/hr Q1H LEVY Administration Azithromycin 500 mg/ Sodium 250 mls @ 125 mls/hr 01/19/23 10:44 01/19/23 11:19 Chloride IV 01/19/23 12:43 125 mls/hr ONCE ONE Administration Discontinued Medications Generic Name Dose Route Start Last Admin Trade Name Freq PRN Reason Stop Dose Admin Albuterol/Ipratropium 3 ml 01/19/23 08:52 01/19/23 08:59 Albuterol/Iprat 2.5/0.5mg 3 Ml Ampul.Neb INHALE 01/19/23 08:53 3 ml ONCE ONE Administration Albuterol/Ipratropium 3 ml 01/19/23 10:36 01/19/23 10:41 Albuterol/Iprat 2.5/0.5mg 3 Ml Ampul.Neb INHALE 01/19/23 10:37 3 ml ONCE ONE Administration Magnesium Sulfate 2 gm in 50 mls @ 25 mls/hr 01/19/23 08:41 01/19/23 10:42 Magnesium Sulfate/H2o IV 01/19/23 10:40 Infused ONCE ONE Infusion Thiamine HCl 200 mg/ Sodium 102 mls @ 204 mls/hr 01/19/23 08:41 01/19/23 10:42 Chloride IV 01/19/23 09:10 Infused ONCE ONE Infusion Ceftriaxone Sodium 1 gm/ 50 mls @ 100 mls/hr 01/19/23 10:44 01/19/23 11:06 Sodium Chloride IV 01/19/23 11:13 100 mls/hr ONCE ONE Administration Lorazepam 1 mg 01/19/23 09:00 01/19/23 09:01 Lorazepam 2 Mg/Ml Vial IVPUSH 01/19/23 09:01 1 mg STAT STA Administration Methylprednisolone Sodium Succinate 60 mg 01/19/23 09:01 01/19/23 10:28 Methylprednisolone Sod Succ 125 Mg/2 Ml Vial IVPUSH 01/19/23 09:02 60 mg ONCE ONE Administration Phenobarbital Sodium 228 mg 01/19/23 11:15 01/19/23 11:13 Phenobarbital Sodium 130 Mg/Ml Im Once IM 01/19/23 11:16 228 mg ONCE ONE Administration Protocol Potassium Chloride 40 meq 01/19/23 09:16 01/19/23 10:28 Potassium Chloride Packet 20 Meq Packet PO 01/19/23 09:17 40 meq ONCE ONE Administration Critical Care Time Critical Care Time Critical Care Time: Yes Total Critical Care Time: 45 Attestation: repeat nebs, ETOH abuse treatments, IV magnesium, IV K repletion I attest to this time spent taking care of the patient Discharge Plan Discharge Clinical Impression: Acute hypokalemia, Alcohol abuse, Hypoxia, COPD exacerbation RAD (reactive airway disease) Qualifiers: Asthma severity: moderate Asthma persistence: persistent Asthma complication type: with acute exacerbation Qualified Code(s): J45.41 - Moderate persistent asthma with (acute) exacerbation Patient Disposition: Admitted As Inpatient
[2023-01-19 08:55] LABS: MANUAL DIFF FLAG NO
[2023-01-19 08:56] LABS: Basophils Absolute Auto 0.1 X10*3/uL (0.0-0.2); Basophils Percent Auto 1.3 % (0-2); Eosinophils Absolute Auto 0.2 X10*3/uL (0.0-0.4); Hematocrit 41.7 % (42.0-52.0); Hemoglobin 14.8 g/dl (14.0-18.0); Imm Gran Abs Auto 0.01 X10*3/uL (0.00-0.03); Imm Gran Pct Auto 0.2 % (0.0-0.4); Lymphocytes Absolute Auto 3.5 X10*3/uL (1.2-4.9); Lymphocytes Percent Auto 54.8 % (20-40); Mean Corpuscular HGB Conc 35.5 g/dl (31.0-36.0); Mean Corpuscular Volume 95.9 fL (80.0-98.0); Mean Platelet Volume 8.8 fL (9.4-12.4); Monocytes Absolute Auto 0.6 X10*3/uL (0.1-1.2); Monocytes Percent Auto 8.7 % (2-11); Platelet Count 232 X10*3/uL (160-400); Red Blood Count 4.35 X10*6/uL (4.60-5.80); Red Cell Distribution Width 13.6 % (11.0-16.0); White Blood Count 6.3 X10*3/uL (4.8-10.8)
[2023-01-19] MEDS: Thiamine HCL 200 MG in 0.9 % Sodium Chloride 100 ML 204 MG IV (08:58)
[2023-01-19] MEDS: Albuterol/Iprat 2.5/0.5MG 3 ML AMPUL.NEB INHALE ×3 (08:59→19:26)
[2023-01-19] MEDS: LORazepam 2 MG/ML VIAL 1 MG IVPUSH (09:01)
[2023-01-19] MEDS: Magnesium Sulfate/H2O 2 GM/50 ML PIGGYBACK IV (09:03)
[2023-01-19 09:12] LABS: Alanine Aminotransferase 92 U/L (0-40); Albumin Level 4.3 g/dL (3.5-5.0); Alkaline Phosphatase 105 U/L (39-117); Anion Gap 15 (12-20); Aspartate Amino Transferase 115 U/L (5-37); Bilirubin Direct 0.2 mg/dL (0.0-0.5); Bilirubin Total 0.5 mg/dL (0.0-1.0); Blood Urea Nitrogen 11 mg/dL (9-16); Calcium 9.3 mg/dL (8.4-10.2); Carbon Dioxide 28 mmol/L (22-29); Chloride 102 mmol/L (96-108); Creatinine Clr Calc Pharmacy 83.9; Estimated Glomerular Filt Rate > 60; Ethanol 347 mg/dL; Glucose Random 148 mg/dL (60-115); Lipase 43 U/L (8-78); Magnesium 1.9 mg/dL (1.6-2.6); Potassium 2.9 mmol/L (3.3-5.1); Sodium 142 mmol/L (135-145); Total Protein 7.7 g/dL (6.5-8.0)
[2023-01-19 09:13] LABS: COVID-19 Test Negative (Negative); IDNOW Serial# BCCEAD1C
[2023-01-19 09:17] LABS: B Type Natriuretic Peptide 19 pg/mL (<100)
[2023-01-19 09:23] LABS: Troponin-I High Sensitivity < 2.7 ng/L (<3.5-35.0)
[2023-01-19 09:52] LABS: Appearance Urine Clear; Color Urine Dark Yellow; Glucose Urine UA Negative (Negative); Leukocyte Esterase Urine Negative (Negative); Nitrite Urine Negative (Negative); PH 6.5 (5.0-9.0); Specific Gravity - Urine >= 1.030 (1.005-1.025); UMIC TRIGGER UACC YES; Urine Blood Trace (Negative); Urine Ketones Negative (Negative); Urine Protein 100 (2+) mg/dL (Neg-Trace)
[2023-01-19 09:55] LABS: Bacteria Urine None Seen (None Seen); Hyaline Casts Urine 0-2 /LPF (0-2); Squamous Epithelial Cell Urine 0-2 /HPF (0-2); WBC Urine 0-5 /HPF (0-5)
[2023-01-19 09:58] LABS: Amphetamine Screen Urine Not Detected (Not Detect); Barbiturates, Urine Not Detected (Not Detect); Benzodiazepines Screen Urine Not Detected (Not Detect); Cannabinoid Screen Urine POSITIVE (Not Detect); Cocaine Screen Urine Not Detected (Not Detect); Fentanyl, urine Not Detected (Not Detect); Opiate Screen Urine Not Detected (Not Detect); Phencyclidine Screen Urine Not Detected (Not Detect)
[2023-01-19] MEDS: methylPREDNISolone Sod Succ 125 MG/2 ML VIAL 60 MG IVPUSH ×2 (10:28→19:50)
[2023-01-19] MEDS: Potassium Chloride Packet 20 MEQ PACKET 40 MEQ PO (10:28)
[2023-01-19] MEDS: Potassium Chloride/H20 10 MEQ/100 ML PIGGYBACK 100 MEQ IV ×2 (10:56→12:10)
[2023-01-19] MEDS: cefTRIAXone sodium 1 GM in 0.9 % Sodium Chloride 50 ML IV (11:06)
--- NOTE | 2023-01-19 11:12 | P.HPHOSP_ITS ---
History of Present Illness Date of Service: 01/19/23 Attending physician on admission: Matthias Stanley Chief Complaint: SOB, dyspnea Pt is a 52-year-old male with a PMH significant for COPD, left BKA, deaf in left ear, hepatitis C, remote hx of opioid addiction on suboxone, and alcohol use disorder?who presents to the ED with worsening SOB and difficulty breathing for the past month. Patient reports he presented to the ED one month prior for similar symptoms, however there is no record of this visit here. Reports SOB and dyspnea have worsened since that visit to the point where he simply ?can not breathe?, which prompted his visit today. Patient is a current smoker of approximately half a pack a day. Reports using his home inhalers daily but states ?they do not work?. Has chronic cough, currently around baseline but productive of yellowish sputum. Patient also reports chest pain pressure associated with deep breathing and cough. Patient also has a long history of alcohol use disorder. States he drinks about a sleeve a day and starts drinking in the morning as soon as he gets up. Last drink was this morning before arrival to ED. Patient claims he feels like he is in alcohol withdrawal. Has experienced occasional nausea and vomiting during the past couple weeks. Currently denies fever, chills, nausea, vomiting, or abdominal pain. No headache. In the ED patient was afebrile but tachycardic up to 180 tachypneic up to 23, setting as low as 86% on RA. Labs were significant for potassium of 2.9, AST 115, ALT 92. No leukocytosis, stable H&H. Renal function baseline. Magnesium 1.9. Troponin negative. BNP negative. Lipase WNL at 43. UA negative for UTI. Tox screen positive for marijuana, ethyl alcohol 347 at 08:50. CXR showed no acute cardiopulmonary process. EKG demonstrated normal sinus rhythm with no evidence of ST elevations or depressions. Pt was treated with thiamine, DuoNebs, lorazepam, Mag sulfate, Solu-Medrol, potassium chloride, ceftriaxone, and started on phenobarb protocol. Pt will be admitted to the hospital for treatment further evaluation of alcohol withdrawal and acute hypoxic respiratory failure in the setting of COPD exacerbation. Review of Systems 2 Review of Systems: Worsening SOB, dyspnea Chest pain and pressure associated with deep breathing and coughing Chronic cough, currently productive of yellowish sputum Feeling anxious, jittery Denies headache No auditory or visual hallucinations [facility] Medical History Amputation above knee Opiate dependence Alcohol abuse COPD (chronic obstructive pulmonary disease) Social History Alcohol intake: current Alcohol intake frequency: 3 or more drinks per day Alcohol type: hard liquor Smoked in Last 30 Days: Yes Use of substances other than those prescribed or required for medical reasons: Yes Substance Use Type: Marijuana Advance Directives: No Advance Directives Information Provided: Yes Meds Allergies Allergy/AdvReac Type Severity Reaction Status Date / Time No Known Allergies Allergy Verified 09/25/21 20:40 Active Medications: Current Medications Potassium Chloride (Potassium Chloride/H20) 10 meq in 100 mls @ 100 mls/hr IV Q1H LEVY Stop: 01/19/23 11:29 Last Admin: 01/19/23 10:56 Dose: 100 mls/hr Ceftriaxone Sodium 1 gm/ (Sodium Chloride) 50 mls @ 100 mls/hr IV ONCE ONE Stop: 01/19/23 11:13 Last Admin: 01/19/23 11:06 Dose: 100 mls/hr Azithromycin 500 mg/ Sodium (Chloride) 250 mls @ 125 mls/hr IV ONCE ONE Stop: 01/19/23 12:43 Pharmacy Consult (Consult Rx Etoh Phenob Im/Po) 1 each MISCELLANE ONCE PRN; Protocol PRN Reason: Consult order Phenobarbital (Phenobarbital 15 Mg Tablet) 45 mg PO BID LEVY; Protocol Stop: 01/21/23 21:01 Phenobarbital (Phenobarbital 15 Mg Tablet) 15 mg PO BID LEVY; Protocol Stop: 01/23/23 21:01 Phenobarbital (Phenobarbital 15 Mg Tablet) 15 mg PO DAILY LEVY; Protocol Stop: 01/25/23 09:01 Phenobarbital Sodium (Phenobarbital Sodium 130 Mg/Ml Im Once) 228 mg IM ONCE ONE; Protocol Stop: 01/19/23 11:16 Phenobarbital Sodium (Phenobarbital Sodium 130 Mg/Ml Vial Im Q3hx2) 171 mg IM Q3H LEVY; Protocol Stop: 01/19/23 17:16 Physical Exam 2 Vital Signs and Narrative: Vital Signs: Last Vital Signs Temp 98.3 F 01/19/23 08:38 Pulse 92 01/19/23 10:41 Resp 16 01/19/23 10:41 BP 102/62 01/19/23 10:26 Pulse Ox 91 L 01/19/23 10:26 O2 Del Method Nasal Cannula 01/19/23 10:26 O2 Flow Rate 2 01/19/23 10:26 BMI result Body Mass Index 26.4 Constitutional: Alert, in no acute distress. Mental Status: Oriented to person, place and time. Eyes: Pupils are equal, round, and reactive to light. Ear, Nose, and Throat: Oropharynx clear, mucous membranes moist. Ears and nose without deformities. Trachea midline. Respiratory: Diffuse bilateral expiratory rhonchi. Cardiovascular: S1, S2, tachy. No murmurs, rubs, or gallops. Gastrointestinal: Abdomen soft, non-tender, non-distended. Normal bowel sounds. Neurologic: Cranial nerves II-XII are grossly intact bilaterally. No focal neurological deficits. Moves all extremities spontaneously. Mild resting tremors of upper extremities. No tongue fasciculations. Skin: No rashes or lesions noted. Musculoskeletal: No cyanosis or clubbing. Extremities: No edema. Psychiatric: Normal mood and affect. Results Labs 01/19/23 08:50 01/19/23 08:50 Labs: Laboratory Results - last 24 hr 01/19/23 01/19/23 01/19/23 08:50 08:51 09:39 MCV 95.9 MCH 34.0 H MCHC 35.5 RDW 13.6 Plt Count 232 MPV 8.8 L Immature Gran % (Auto) 0.2 Neut % (Auto) 32.0 L Lymph % (Auto) 54.8 H [place] % (Auto) 8.7 Eos % (Auto) 3.0 Baso % (Auto) 1.3 Lymph # (Auto) 3.5 [place] # (Auto) 0.6 Eos # (Auto) 0.2 Baso # (Auto) 0.1 Abs Immat Gran (auto) 0.01 Absolute Neuts (auto) 2.0 Absolute Nucleated RBC 0.000 Nucleated RBC % (auto) 0.0 Anion Gap 15 Estim Creat Clear Calc 83.9 Estimated GFR > 60 Random Glucose 148 H Calcium 9.3 Magnesium 1.9 Total Bilirubin 0.5 Direct Bilirubin 0.2 AST 115 H ALT 92 H Alkaline Phosphatase 105 B-Natriuretic Peptide 19 Total Protein 7.7 Albumin 4.3 Lipase 43 Urine Color Dark Yellow Urine Appearance Clear Urine pH 6.5 Ur Specific [place] >= 1.030 H Urine Protein 100 (2+) H Urine Glucose (UA) Negative Urine Ketones Negative Urine Blood Trace H Urine Nitrite Negative Ur Leukocyte Esterase Negative Urine RBC 6-10 H Urine WBC 0-5 Ur Squamous Epith Cells 0-2 Urine Bacteria None Seen Hyaline Casts 0-2 Urine Opiates Screen Not Detected Urine Fentanyl Screen Not Detected Ur Barbiturates Screen Not Detected Ur Phencyclidine Scrn Not Detected Ur Amphetamines Screen Not Detected U Benzodiazepines Scrn Not Detected Urine Cocaine Screen Not Detected U Marijuana (THC) Screen POSITIVE H Ethyl Alcohol 347 H* COVID-19 ([facility]) Negative COVID-19 Clin Com See Note Imaging Radiologist's Impressions: Impressions Chest X-Ray 01/19/23 09:33 IMPRESSION: Unremarkable chest examination. Assessment and Plan (1) COPD exacerbation: Status: Acute (2) Acute hypokalemia: Status: Acute Plan Pt is a 52-year-old male with a PMH significant for COPD, left BKA, deaf in left ear, hepatitis C, remote hx of opioid addiction on suboxone, and alcohol use disorder?who presents to the ED with worsening SOB and difficulty breathing for the past month. Pt will be admitted to the hospital for treatment further evaluation of alcohol withdrawal and acute hypoxic respiratory failure in the setting of COPD exacerbation Acute hypoxic respiratory failure in the setting of COPD exacerbation Patient satting in the 80s in the ED, not on home O2 Significant expiratory rhonchi on examination despite treatment in the ED Patient meets sepsis criteria: COPD exacerbation, tachycardia, tachypnea, lactic acid 2.6 Patient given IVF and started on broad-spectrum antibiotics in the ED Will treat with doxycycline, place on maintenance fluids Titrate supplemental O2>92, and wean and as tolerated Hypokalemia Potassium 2.9 at time of presentation Patient received potassium chloride 40 mEq in the ED Follow BMP Alcohol use disorder Patient drinks 1 sleeve + alcohol daily Alcohol levels 347 at 08:50 this morning Will treat for impending alcohol withdrawal, patient with minor upper extremity tremors, no tongue fasciculations Patient started on phenobarb protocol in the ED, will continue Daily multivitamin, folic acid, thiamine Famotidine 20 mg p.o. Follow bruna, Mag, BMP CIWA scale Addiction Medicine consult Monitor on telemetry Opioid use disorder Verify and continue Suboxone Addiction Medicine consult Nicotine dependence NRT: patch Smoking cessation advised Full Code Attending:?Dr. Stanley DVT Prophylaxis: Lovenox Pt will require a hospitalization of at least two nights for treatment of?alcohol withdrawal and acute hypoxic respiratory failure in the setting of COPD exacerbation. Patient treated with supplemental oxygen, phenobarb protocol, and close monitoring. Quality Stroke Does the patient have a stroke diagnosis?: No VTE Prior VTE?: No VTE Risk Level:: Medical - moderate - high VTE Device Contraindication: Treatment Not Indicated VTE Drug Contraindication: N/A - Med Ordered
[2023-01-19] MEDS: PHENobarbitaL sodium 130 MG/ML IM ONCE 228 MG IM (11:13)
[2023-01-19] MEDS: Azithromycin 500 MG in 0.9 % Sodium Chloride 250 ML 125 MG IV (11:19)
[2023-01-19 11:26] LABS: Lactic Acid 2.6 mmol/L (0.5-2.0)
[2023-01-19] MEDS: Folic Acid 1 MG TABLET PO (12:44)
[2023-01-19] MEDS: Famotidine 20 MG TABLET PO ×2 (12:44→20:31)
[2023-01-19] MEDS: Nicotine 14 MG PATCH.TD24 TRANSDERMA (12:44)
[2023-01-19] MEDS: Enoxaparin Sodium 40 MG/0.4 ML SYRINGE SUBCUT (12:44)
[2023-01-19] MEDS: Multivitamin TABLET 1 TAB PO (12:44)
--- NOTE | 2023-01-19 12:44 | PHA.MEDREC ---
Pharmacy Consult ? Medication Reconciliation Pharmacy has completed the medication reconciliation. Spoke to patient at bedside, states taking 1 full suboxone films in the morning and around 3 or 4 pm, then half film at bedtime. Patient also complaining of IV line burning, threatened to take it out himself. Notified nurse Matilde.
[2023-01-19] MEDS: 0.9 % Sodium Chloride 500 ML IV (12:45)
[2023-01-19 13:06] LABS: Reflex Lactate? Lactic Acid Added
[2023-01-19] MEDS: Lactated Ringers 1,000 ML 100 ML IVCONT (13:30)
[2023-01-19 14:53] LABS: ~Lactic Acid-LAB USE ONLY 3.6 mmol/L (0.5-2.0)
[2023-01-19] MEDS: PHENobarbitaL sodium 130 MG/ML VIAL IM Q3Hx2 171 MG IM ×2 (15:33→17:19)
[2023-01-19 16:16] LABS: Reflex Lactate? 2 Y
[2023-01-19] MEDS: Buprenorphine/Naloxone 8/2 mg FILM 1 FILM SUBLINGUAL (17:21)
[2023-01-19 17:36] LABS: ~Lactic Acid-LAB USE ONLY 3.6 mmol/L (0.5-2.0)
--- NOTE | 2023-01-19 17:38 | PC.NURSE ---
pt MALIK 9 - [facility] connect sent to [facility] requesting second dose of phenobarbital as pts next dose is 9am PO tomorrow.
[2023-01-19] MEDS: PHENobarbitaL sodium 130 MG/ML VIAL 228 MG IM (19:49)
[2023-01-19] MEDS: Buprenorphine/Naloxone 4/1 mg FILM 1 FILM SUBLINGUAL (20:31)
[2023-01-19] MEDS: Acetaminophen 325 MG TABLET 650 MG PO (20:31)
[2023-01-19] MEDS: hydrOXYzine HCL 50 MG TABLET PO (21:29)
[2023-01-20] VITALS (8 sets, daily range): BP systolic 136–155; BP diastolic 81–95; PULSE 70–87; RESP 17–20; TEMP 36.2–37; O2SAT 92–97
[2023-01-20] MEDS: Lactated Ringers 1,000 ML 100 ML IVCONT ×3 (01:52→23:52)
[2023-01-20] MEDS: ondansetron HCL 4 MG/2 ML VIAL IVPUSH ×2 (03:49→15:32)
[2023-01-20] MEDS: Acetaminophen 325 MG TABLET 650 MG PO ×2 (03:49→15:32)
[2023-01-20] MEDS: PHENobarbitaL sodium 65 MG/ML VIAL 30 MG IM (04:07)
[2023-01-20] MEDS: methylPREDNISolone Sod Succ 125 MG/2 ML VIAL 60 MG IVPUSH ×2 (06:18→18:41)
[2023-01-20 06:43] LABS: Hematocrit 38.5 % (42.0-52.0); Hemoglobin 13.2 g/dl (14.0-18.0); Mean Corpuscular HGB Conc 34.3 g/dl (31.0-36.0); Mean Corpuscular Hemoglobin 33.6 pg (27.0-33.0); Platelet Count 205 X10*3/uL (160-400); Red Blood Count 3.93 X10*6/uL (4.60-5.80); Red Cell Distribution Width 13.6 % (11.0-16.0); White Blood Count 5.9 X10*3/uL (4.8-10.8)
[2023-01-20 07:15] LABS: Anion Gap 13 (12-20); Blood Urea Nitrogen 9 mg/dL (9-16); Calcium 8.9 mg/dL (8.4-10.2); Carbon Dioxide 26 mmol/L (22-29); Chloride 100 mmol/L (96-108); Creatinine Clr Calc Pharmacy 98.4; Estimated Glomerular Filt Rate > 60; Glucose Random 186 mg/dL (60-115); Magnesium 1.8 mg/dL (1.6-2.6); Phosphorus 2.7 mg/dL (2.7-4.5); Potassium 4.2 mmol/L (3.3-5.1); Sodium 135 mmol/L (135-145)
[2023-01-20] MEDS: Buprenorphine/Naloxone 8/2 mg FILM 1 FILM SUBLINGUAL ×2 (08:40→15:32)
[2023-01-20] MEDS: Nicotine 14 MG PATCH.TD24 TRANSDERMA (08:40)
[2023-01-20] MEDS: PHENobarbitaL 15 MG TABLET 45 MG PO (08:41)
[2023-01-20] MEDS: Multivitamin TABLET 1 TAB PO (08:42)
[2023-01-20] MEDS: Folic Acid 1 MG TABLET PO (08:42)
[2023-01-20] MEDS: Famotidine 20 MG TABLET PO ×2 (08:42→20:55)
[2023-01-20] MEDS: Thiamine HCL 100 MG TABLET PO (08:42)
[2023-01-20] MEDS: Doxycycline Monohydrate 100 MG CAPSULE PO ×2 (08:42→20:54)
[2023-01-20] MEDS: LORazepam 2 MG/ML VIAL IVPUSH ×2 (09:17→18:37)
--- NOTE | 2023-01-20 11:10 | MHC.RECOVRN ---
Met with pt in 452 after consult placed to Addiction Medicine for substance use. Pt had presented to the ED with SOB feels like he's dying feels like he has CA. Pt had reported this had been going on for weeks. Upon evaluation, pt admitted to [facility] with COPD exacerbation and acute hypokalemia. Upon entering pts room, pt sitting in bed, awake, alert, easily engages in conversation, pleasant. Reports feeling better. Pt reports hx opioid use, last consistent use in 2015 prior to incarceration. When pt was released in 2019 he reports using heroin x1 which resulted in overdose and presentation to ED. Since 2019, pt reports he has been taking Suboxone and in recovery from opioids. Currently a pt at [facility]. Pt reports alcohol use, 10-15 shots of michael vodka daily. Pt reports alcohol use began at age 12 and has been drinking off and on since then. Pt reports trialing CECILY in the past, unsure which medication it was. Educated pt regarding CECILY, pt interested in acamprosate. Discussed other recovery supports and resources, pt is interested in IOP. Pt reports working during the day so was provided information on [facility]. Pt provided with other written resources as well as t/w contact information if needed. Denies questions or concerns at this time. Discussed with Lolly Kwan APRN.
[2023-01-20] MEDS: Albuterol/Iprat 2.5/0.5MG 3 ML AMPUL.NEB INHALE ×2 (11:38→19:35)
[2023-01-20] MEDS: Enoxaparin Sodium 40 MG/0.4 ML SYRINGE SUBCUT (11:45)
--- NOTE | 2023-01-20 11:46 | MHC.CM.PN ---
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 PT VERIFIES HE HAS NO PCP AND HAS BEEN PROVIDED W/[facility] PROVIDER PAMPHLET. PT REPORTS HIS [facility] WAS DROPPED 4 MONTHS AGO AND WOULD LIKE REFERRAL TO [facility] TO SEE IF THEY CAN ASSIST W/THIS. PT ALSO REPORTS HE HAS ONLY HAD ONE MODERNA VACCINE AND HAS BEEN ENCOURAGED TO GO TO [facility] FOR VACCINES HE IS INTERESTED IN GETTING THE SECOND VACCINE. PT EDUCATED ON AND COMPLETED A HCP NAMING HIS DTR KALYAN [phone] HIS [facility] AND HIS COUSIN ANTHONY [phone] HIS ALTERNATE, PT RECEIVED ORIGINAL AND 2 COPIES., COPY UPLOADED TO [facility] AND PLACED IN CHART.
--- NOTE | 2023-01-20 13:52 | P.PNIM_ITS ---
Subjective Subjective Date of Service: 01/20/23 Interval History: Continues on CIWA protocol; CIWA at 12 noon 9. Required dose of IV Ativan in addition phenobarb protocol. No active seizures noted Review of Systems Denies chest pain Denies shortness of breath Denies nausea vomiting diarrhea Denies fever chills Physical Exam 2 Vital Signs: Vital Signs: Last Vital Signs Temp 98.2 F 01/20/23 11:01 Pulse 74 01/20/23 11:39 Resp 18 01/20/23 11:39 BP 155/88 H 01/20/23 11:01 Pulse Ox 95 01/20/23 11:01 O2 Del Method Nasal Cannula 01/20/23 11:01 O2 Flow Rate 2 01/20/23 11:01 BMI result Body Mass Index 26.4 Const: Other: Awake alert no acute distress Resp: Other: Clear to auscultation bilaterally no rales rhonchi or wheezes Cardio: Other: No S4; positive S1-S2; no S3 murmurs rubs or gallops GI: Other: Soft nontender nondistended normoactive bowel sounds Extrem: Other: No edema bilaterally Objective Data Active Medications Acetaminophen (Acetaminophen 325 Mg Tablet) 650 mg PO Q6H PRN PRN Reason: Pain, Mild (Pain Scale 1-3) Last Admin: 01/20/23 03:49 Dose: 650 mg Documented By: BUD Albuterol/Ipratropium (Albuterol/Iprat 2.5/0.5mg 3 Ml Ampul.Neb) 3 ml INHALE RQ4H WHILE AWAKE [facility] Last Admin: 01/20/23 11:38 Dose: 3 ml Documented By: JASWANT Buprenorphine/Naloxone (Buprenorphine/Naloxone 8/2 Mg Film) 1 film SUBLINGUAL BID@0900,1600 [facility] Last Admin: 01/20/23 08:40 Dose: 1 film Documented By: RANDY Buprenorphine/Naloxone (Buprenorphine/Naloxone 4/1 Mg Film) 1 film SUBLINGUAL BEDTIME [facility] Last Admin: 01/19/23 20:31 Dose: 1 film Documented By: BUD Docusate Sodium (Docusate Sodium 100 Mg Capsule) 100 mg PO DAILY PRN PRN Reason: Constipation Doxycycline Monohydrate (Doxycycline Monohydrate 100 Mg Capsule) 100 mg PO Q12H [facility] Stop: 01/25/23 08:59 Last Admin: 01/20/23 08:42 Dose: 100 mg Documented By: RANDY Enoxaparin Sodium (Enoxaparin Sodium 40 Mg/0.4 Ml Syringe) 40 mg SUBCUT Q24H [facility] Last Admin: 01/20/23 11:45 Dose: 40 mg Documented By: RANDY Famotidine (Famotidine 20 Mg Tablet) 20 mg PO BID [facility] Last Admin: 01/20/23 08:42 Dose: 20 mg Documented By: RANDY Folic Acid (Folic Acid 1 Mg Tablet) 1 mg PO DAILY [facility] Stop: 01/22/23 12:19 Last Admin: 01/20/23 08:42 Dose: 1 mg Documented By: RANDY Hydroxyzine HCl (Hydroxyzine Hcl 50 Mg Tablet) 50 mg PO BEDTIME PRN PRN Reason: anxiety Last Admin: 01/19/23 21:29 Dose: 50 mg Documented By: BUD Lactated Ringer's (Lr) 1,000 mls @ 100 mls/hr IVCONT .Q10H [facility] Last Admin: 01/20/23 11:45 Dose: 100 mls/hr Documented By: RANDY Methylprednisolone Sodium Succinate (Methylprednisolone Sod Succ 125 Mg/2 Ml Vial) 60 mg IVPUSH Q12H [facility] Last Admin: 01/20/23 06:18 Dose: 60 mg Documented By: BUD Multivitamins/Vitamin C (Multivitamin Tablet) 1 tab PO DAILY [facility] Stop: 01/22/23 12:24 Last Admin: 01/20/23 08:42 Dose: 1 tab Documented By: RANDY Nicotine (Nicotine 14 Mg Patch.Td24) 14 mg TRANSDERMA DAILY [facility] Last Admin: 01/20/23 08:40 Dose: 14 mg Documented By: RANDY Ondansetron HCl (Ondansetron Hcl 4 Mg/2 Ml Vial) 4 mg IVPUSH Q8H PRN PRN Reason: Nausea and Vomiting Last Admin: 01/20/23 03:49 Dose: 4 mg Documented By: BUD Pharmacy Consult (Consult Rx Etoh Phenob Im/Po) 1 each MISCELLANE ONCE PRN; Protocol PRN Reason: Consult order Phenobarbital (Phenobarbital 15 Mg Tablet) 45 mg PO BID [facility]; Protocol Stop: 01/21/23 21:01 Last Admin: 01/20/23 08:41 Dose: 45 mg Documented By: RANDY Phenobarbital (Phenobarbital 15 Mg Tablet) 15 mg PO BID [facility]; Protocol Stop: 01/23/23 21:01 Phenobarbital (Phenobarbital 15 Mg Tablet) 15 mg PO DAILY [facility]; Protocol Stop: 01/25/23 09:01 Sodium Chloride (0.9 % Sodium Chloride Flush 3 Ml Syringe) 3 ml IVFLUSH QSHIFT [facility] Last Admin: 01/20/23 08:43 Dose: Not Given Documented By: RANDY Non-Admin Reason: IV Running Thiamine HCl (Thiamine Hcl 100 Mg Tablet) 100 mg PO DAILY [facility] Stop: 01/23/23 08:59 Last Admin: 01/20/23 08:42 Dose: 100 mg Documented By: RANDY Labs 01/20/23 05:55 01/20/23 05:55 Labs: Laboratory Results - last 24 hr 01/19/23 01/19/23 01/20/23 14:13 16:52 05:55 MCV 98.0 MCH 33.6 H MCHC 34.3 RDW 13.6 Plt Count 205 MPV 10.0 Absolute Nucleated RBC 0.000 Nucleated RBC % (auto) 0.0 Anion Gap 13 Estim Creat Clear Calc 98.4 Estimated GFR > 60 Random Glucose 186 H Lactic Acid F/U @ 2Hr 3.6 H* Lactic Acid F/U @ 4Hr 3.6 H* Calcium 8.9 Phosphorus 2.7 Magnesium 1.8 Microbiology Microbiology Results: Microbiology 01/19/23 11:02 Blood Culture - Preliminary Blood - Venous No growth after 24 hours. 01/19/23 11:03 Blood Culture - Preliminary Blood - Venous No growth after 24 hours. Assessment and Plan (1) Alcohol withdrawal: Status: Acute (2) RAD (reactive airway disease): Status: Acute (3) Acute hypokalemia: Status: Acute Plan Pt is a 52-year-old male with a PMH significant for COPD, left BKA, deaf in left ear, hepatitis C, remote hx of opioid addiction on suboxone, and alcohol use disorder?who presents to the ED with worsening SOB and difficulty breathing for the past month. Pt will be admitted to the hospital for treatment further evaluation of alcohol withdrawal and acute hypoxic respiratory failure in the setting of COPD exacerbation 1.Acute hypoxic respiratory failure/COPD exacerbation -improving with treatment -continue doxycycline as ordered ... Switch to p.o. upon discharge -continue methylprednisolone q.6 hours (60 mg) times an additional 24 hours. . . Taper as tolerated -DuoNebs q.4 hours p.r.n. 2.Hypokalemia (repleted) -follow renals/divalents -replete as indicated 3.Alcohol withdraw -CIWA scale/phenobarb protocol -IV Ativan p.r.n. for breakthrough -seizure precaution 4.Opioid use disorder -Suboxone as per addiction Medicine Full Code Lovenox Patient will require ongoing hospitalization for treatment of alcohol withdrawal with phenobarb protocol Quality Stroke Does the patient have a stroke diagnosis?: No VTE Prior VTE?: No VTE Risk Level:: Medical - moderate - high VTE Device Contraindication: Treatment Not Indicated VTE Drug Contraindication: N/A - Med Ordered
[2023-01-20] MEDS: Acamprosate Calcium 333 MG TABLET.DR 666 MG PO ×2 (15:32→20:54)
--- NOTE | 2023-01-20 18:21 | PM.EVENT ---
Event Note Date of Service: 01/20/23 Event Note: Pt with tremors, diaphoretic, and mild nausea. Spoke with Dr. Stanley who ordered giving pt Ativan 2mg IV now then phenobarb 45 mg IM in one hour. Time Spent With Patient Time: Total time managing care of this patient today ____ minutes.
[2023-01-20] MEDS: PHENobarbitaL sodium 65 MG/ML VIAL 45 MG IM (20:54)
[2023-01-20] MEDS: Buprenorphine/Naloxone 4/1 mg FILM 1 FILM SUBLINGUAL (20:55)
[2023-01-20] MEDS: 0.9 % Sodium Chloride Flush 3 ML SYRINGE IVFLUSH (20:57)
[2023-01-21] VITALS (8 sets, daily range): BP systolic 124–163; BP diastolic 59–91; PULSE 65–100; RESP 16–20; TEMP 36.7–37.3; O2SAT 93–97
[2023-01-21] MEDS: hydrOXYzine HCL 50 MG TABLET PO ×2 (01:10→22:32)
[2023-01-21] MEDS: Haloperidol Lactate 5 MG/ML VIAL IVPUSH (01:10)
[2023-01-21] MEDS: Acetaminophen 325 MG TABLET 650 MG PO ×3 (01:10→22:33)
[2023-01-21] MEDS: Nicotine 14 MG PATCH.TD24 TRANSDERMA (01:19)
[2023-01-21] MEDS: Lactated Ringers 1,000 ML 100 ML IVCONT (04:06)
[2023-01-21] MEDS: methylPREDNISolone Sod Succ 125 MG/2 ML VIAL 60 MG IVPUSH ×2 (06:45→17:45)
[2023-01-21 06:57] LABS: Hematocrit 42.8 % (42.0-52.0); Hemoglobin 14.9 g/dl (14.0-18.0); Mean Corpuscular HGB Conc 34.8 g/dl (31.0-36.0); Mean Corpuscular Hemoglobin 33.6 pg (27.0-33.0); Mean Corpuscular Volume 96.4 fL (80.0-98.0); Mean Platelet Volume 9.8 fL (9.4-12.4); Platelet Count 204 X10*3/uL (160-400); Red Blood Count 4.44 X10*6/uL (4.60-5.80); Red Cell Distribution Width 13.2 % (11.0-16.0); White Blood Count 9.3 X10*3/uL (4.8-10.8)
[2023-01-21 07:25] LABS: Anion Gap 14 (12-20); Blood Urea Nitrogen 11 mg/dL (9-16); Calcium 9.6 mg/dL (8.4-10.2); Carbon Dioxide 28 mmol/L (22-29); Chloride 98 mmol/L (96-108); Creatinine Clr Calc Pharmacy 95.7; Estimated Glomerular Filt Rate > 60; Glucose Random 114 mg/dL (60-115); Phosphorus 2.6 mg/dL (2.7-4.5); Potassium 3.8 mmol/L (3.3-5.1); Sodium 136 mmol/L (135-145)
[2023-01-21] MEDS: PHENobarbitaL 15 MG TABLET 45 MG PO ×2 (08:17→20:55)
[2023-01-21] MEDS: Buprenorphine/Naloxone 8/2 mg FILM 1 FILM SUBLINGUAL ×2 (08:17→15:40)
[2023-01-21] MEDS: Folic Acid 1 MG TABLET PO (08:18)
[2023-01-21] MEDS: 0.9 % Sodium Chloride Flush 3 ML SYRINGE IVFLUSH ×2 (08:18→15:40)
[2023-01-21] MEDS: Acamprosate Calcium 333 MG TABLET.DR 666 MG PO ×3 (08:18→20:55)
[2023-01-21] MEDS: Doxycycline Monohydrate 100 MG CAPSULE PO ×2 (08:18→20:55)
[2023-01-21] MEDS: Thiamine HCL 100 MG TABLET PO (08:18)
[2023-01-21] MEDS: Famotidine 20 MG TABLET PO ×2 (08:18→20:55)
[2023-01-21] MEDS: Multivitamin TABLET 1 TAB PO (08:18)
--- NOTE | 2023-01-21 10:35 | MHC.RECOVRN ---
Met with pt to check in and answer questions after initiating acamprosate. Reinforced education, pt plans to follow up with [facility]EX[facility] C[facility] regarding campral continuation. Pt encouraged to reach out to t/w with other questions or concerns.
--- NOTE | 2023-01-21 11:24 | P.PNIM_ITS ---
Subjective Subjective Date of Service: 01/21/23 Interval History: CIWA improving; no active seizures. States markedly improves Review of Systems Denies chest pain Denies shortness of breath Denies nausea vomiting diarrhea Denies fever chills Physical Exam 2 Vital Signs: Vital Signs: Last Vital Signs Temp 99.1 F 01/21/23 11:06 Pulse 65 01/21/23 11:06 Resp 18 01/21/23 11:06 BP 162/91 H 01/21/23 11:06 Pulse Ox 97 01/21/23 11:06 O2 Del Method Room Air 01/21/23 11:06 O2 Flow Rate 2 01/20/23 23:04 BMI result Body Mass Index 26.4 Const: Other: Awake alert no acute distress Resp: Other: Clear to auscultation bilaterally no rales rhonchi or wheezes Cardio: Other: No S4; positive S1-S2; no S3 murmurs rubs or gallops GI: Other: Soft nontender nondistended normoactive bowel sounds Extrem: Other: No edema bilaterally Objective Data Active Medications Acamprosate (Acamprosate Calcium 333 Mg Tablet.) 666 mg PO TID [facility] Last Admin: 01/21/23 08:18 Dose: 666 mg Documented By: RANDY Acetaminophen (Acetaminophen 325 Mg Tablet) 650 mg PO Q6H PRN PRN Reason: Pain, Mild (Pain Scale 1-3) Last Admin: 01/21/23 01:10 EST Dose: 650 mg Documented By: GÓMEZ Albuterol/Ipratropium (Albuterol/Iprat 2.5/0.5mg 3 Ml Ampul.Neb) 3 ml INHALE RQ4H WHILE AWAKE [facility] Last Admin: 01/21/23 08:11 Dose: Not Given Documented By: JERSEY Non-Admin Reason: Patient Refused Buprenorphine/Naloxone (Buprenorphine/Naloxone 8/2 Mg Film) 1 film SUBLINGUAL BID@0900,1600 [facility] Last Admin: 01/21/23 08:17 Dose: 1 film Documented By: RANDY Buprenorphine/Naloxone (Buprenorphine/Naloxone 4/1 Mg Film) 1 film SUBLINGUAL BEDTIME [facility] Last Admin: 01/20/23 20:55 Dose: 1 film Documented By: GÓMEZ Docusate Sodium (Docusate Sodium 100 Mg Capsule) 100 mg PO DAILY PRN PRN Reason: Constipation Doxycycline Monohydrate (Doxycycline Monohydrate 100 Mg Capsule) 100 mg PO Q12H [facility] Stop: 01/25/23 08:59 Last Admin: 01/21/23 08:18 Dose: 100 mg Documented By: RANDY Enoxaparin Sodium (Enoxaparin Sodium 40 Mg/0.4 Ml Syringe) 40 mg SUBCUT Q24H [facility] Last Admin: 01/20/23 11:45 Dose: 40 mg Documented By: RANDY Famotidine (Famotidine 20 Mg Tablet) 20 mg PO BID [facility] Last Admin: 01/21/23 08:18 Dose: 20 mg Documented By: RANDY Folic Acid (Folic Acid 1 Mg Tablet) 1 mg PO DAILY [facility] Stop: 01/22/23 12:19 Last Admin: 01/21/23 08:18 Dose: 1 mg Documented By: RANDY Hydroxyzine HCl (Hydroxyzine Hcl 50 Mg Tablet) 50 mg PO BEDTIME PRN PRN Reason: anxiety Last Admin: 01/21/23 01:10 EST Dose: 50 mg Documented By: GÓMEZ Lactated Ringer's (Lr) 1,000 mls @ 100 mls/hr IVCONT .Q10H [facility] Last Admin: 01/21/23 04:06 Dose: 100 mls/hr Documented By: GÓMEZ Comments: pt removed own IV - line contaminated, new bag initiated with new IV placement Methylprednisolone Sodium Succinate (Methylprednisolone Sod Succ 125 Mg/2 Ml Vial) 60 mg IVPUSH Q12H [facility] Last Admin: 01/21/23 06:45 Dose: 60 mg Documented By: GÓMEZ Multivitamins/Vitamin C (Multivitamin Tablet) 1 tab PO DAILY [facility] Stop: 01/22/23 12:24 Last Admin: 01/21/23 08:18 Dose: 1 tab Documented By: RANDY Nicotine (Nicotine 14 Mg Patch.Td24) 14 mg TRANSDERMA DAILY [facility] Last Admin: 01/21/23 01:19 EST Dose: 14 mg Ondansetron HCl (Ondansetron Hcl 4 Mg/2 Ml Vial) 4 mg IVPUSH Q8H PRN PRN Reason: Nausea and Vomiting Last Admin: 01/20/23 15:32 Dose: 4 mg Documented By: RANDY Pharmacy Consult (Consult Rx Etoh Phenob Im/Po) 1 each MISCELLANE ONCE PRN; Protocol PRN Reason: Consult order Phenobarbital (Phenobarbital 15 Mg Tablet) 45 mg PO BID [facility]; Protocol Stop: 01/22/23 09:01 Last Admin: 01/21/23 08:17 Dose: 45 mg Documented By: RANDY Phenobarbital (Phenobarbital 15 Mg Tablet) 15 mg PO BID [facility]; Protocol Stop: 01/23/23 21:01 Phenobarbital (Phenobarbital 15 Mg Tablet) 15 mg PO DAILY [facility]; Protocol Stop: 01/25/23 09:01 Sodium Chloride (0.9 % Sodium Chloride Flush 3 Ml Syringe) 3 ml IVFLUSH QSHIFT [facility] Last Admin: 01/21/23 08:18 Dose: 3 ml Documented By: RANDY Thiamine HCl (Thiamine Hcl 100 Mg Tablet) 100 mg PO DAILY [facility] Stop: 01/23/23 08:59 Last Admin: 01/21/23 08:18 Dose: 100 mg Documented By: RANDY Labs 01/21/23 06:25 01/21/23 06:26 Labs: Laboratory Results - last 24 hr 01/21/23 01/21/23 06:25 06:26 MCV 96.4 MCH 33.6 H MCHC 34.8 RDW 13.2 Plt Count 204 MPV 9.8 Absolute Nucleated RBC 0.000 Nucleated RBC % (auto) 0.0 Anion Gap 14 Estim Creat Clear Calc 95.7 Estimated GFR > 60 Random Glucose 114 Calcium 9.6 D Phosphorus 2.6 L Magnesium 2.0 Microbiology Microbiology Results: Microbiology 01/19/23 11:02 Blood Culture - Preliminary Blood - Venous No growth after 24 hours. 01/19/23 11:03 Blood Culture - Preliminary Blood - Venous No growth after 24 hours. Assessment and Plan (1) COPD exacerbation: Status: Acute (2) Alcohol withdrawal: Status: Acute Plan Pt is a 52-year-old male with a PMH significant for COPD, left BKA, deaf in left ear, hepatitis C, remote hx of opioid addiction on suboxone, and alcohol use disorder?who presents to the ED with worsening SOB and difficulty breathing for the past month. Pt will be admitted to the hospital for treatment further evaluation of alcohol withdrawal and acute hypoxic respiratory failure in the setting of COPD exacerbation 1.Acute hypoxic respiratory failure/COPD exacerbation -improving with treatment -continue doxycycline as ordered ... Switch to p.o. upon discharge -continue methylprednisolone q.6 hours (60 mg) ... Switch to oral in a.m. -DuoNebs q.4 hours p.r.n. 2.Hypokalemia (repleted) -follow renals/divalents -replete as indicated 3.Alcohol withdraw -CIWA scale/phenobarb protocol -IV Ativan p.r.n. for breakthrough -seizure precaution 4.Opioid use disorder -Suboxone as per addiction Medicine Full Code Lovenox Patient will require ongoing hospitalization for treatment of alcohol withdrawal with phenobarb protocol Quality Stroke Does the patient have a stroke diagnosis?: No VTE Prior VTE?: No VTE Risk Level:: Medical - moderate - high VTE Device Contraindication: Treatment Not Indicated VTE Drug Contraindication: N/A - Med Ordered
[2023-01-21] MEDS: Enoxaparin Sodium 40 MG/0.4 ML SYRINGE SUBCUT (12:16)
[2023-01-21] MEDS: ondansetron HCL 4 MG/2 ML VIAL IVPUSH (12:21)
[2023-01-21] MEDS: Albuterol/Iprat 2.5/0.5MG 3 ML AMPUL.NEB INHALE ×2 (12:32→18:59)
[2023-01-21] MEDS: LORazepam 2 MG/ML VIAL IVPUSH (12:41)
[2023-01-21] MEDS: Haloperidol Lactate 5 MG/ML VIAL IM (17:44)
[2023-01-21] MEDS: Buprenorphine/Naloxone 4/1 mg FILM 1 FILM SUBLINGUAL (20:55)
[2023-01-22] MEDS: Haloperidol Lactate 5 MG/ML VIAL IVPUSH (03:21)
[2023-01-22 03:46] VITALS: BP 161/92; PULSE 87; RESP 18; TEMP 36.9; O2SAT 93
--- NOTE | 2023-01-22 05:02 | PC.NURSE ---
Pt having increased anxiety, realizing he has an appointment with [facility] this morning at 930AM. Pt states the last time he missed an appointment with them he was out of suboxone for multiple days. TW explained to pt that the [facility] office would not be open until later in the morning and that someone would be in contact with [facility] to verify/modify appointment. Pt agreeable to plan.
[2023-01-22] MEDS: methylPREDNISolone Sod Succ 125 MG/2 ML VIAL 60 MG IVPUSH (06:17)
[2023-01-22 07:10] LABS: Hematocrit 42.9 % (42.0-52.0); Hemoglobin 15.2 g/dl (14.0-18.0); Mean Corpuscular HGB Conc 35.4 g/dl (31.0-36.0); Mean Corpuscular Hemoglobin 34.5 pg (27.0-33.0); Mean Corpuscular Volume 97.3 fL (80.0-98.0); Mean Platelet Volume 10.4 fL (9.4-12.4); Platelet Count 216 X10*3/uL (160-400); Red Blood Count 4.41 X10*6/uL (4.60-5.80); Red Cell Distribution Width 13.2 % (11.0-16.0); White Blood Count 9.2 X10*3/uL (4.8-10.8)
[2023-01-22 07:21] VITALS: BP 167/99; PULSE 76; RESP 18; TEMP 36.5; O2SAT 95
[2023-01-22 07:25] LABS: Anion Gap 13 (12-20); Blood Urea Nitrogen 13 mg/dL (9-16); Carbon Dioxide 33 mmol/L (22-29); Chloride 95 mmol/L (96-108); Creatinine Clr Calc Pharmacy 87.1; Estimated Glomerular Filt Rate > 60; Glucose Random 92 mg/dL (60-115); Magnesium 2.1 mg/dL (1.6-2.6); Phosphorus 3.1 mg/dL (2.7-4.5); Potassium 4.8 mmol/L (3.3-5.1); Sodium 136 mmol/L (135-145)
--- NOTE | 2023-01-22 09:22 | P.DS_ITS ---
DS: Providers Provider Date of Service: 01/22/23 Date of admission: 01/19/23 12:12 Primary care physician: None Physician Consults: 01/19/23 11:50 Addiction Medicine Routine Consulting Provider: Addiction Covering Reason for consultation: Alcohol withdrawal, hx of opioid use on suboxone DS: Diagnosis Discharge Diagnosis (1) COPD exacerbation: Status: Acute (2) Alcohol withdrawal: Status: Acute DS: Summary Hospital Course Hospital Course: Pt is a 52-year-old male with a PMH significant for COPD, left BKA, deaf in left ear, hepatitis C, remote hx of opioid addiction on suboxone, and alcohol use disorder?who presents to the ED with worsening SOB and difficulty breathing for the past month. Patient reports he presented to the ED one month prior for s imilar symptoms, however there is no record of this visit here. Reports SOB and dyspnea have worsened since that visit to the point where he simply ?can not breathe?, which prompted his visit today. Patient is a current smoker of approximately half a pack a day. Reports using his home inhalers daily but states ?they do not work?. Has chronic cough, currently around baseline but productive of yellowish sputum. Patient also reports chest pain pressure associated with deep breathing and cough. Patient also has a long history of alcohol use disorder. States he drinks about a sleeve a day and starts drinking in the morning as soon as he gets up. Last drink was this morning before arrival to ED. Patient claims he feels like he is in alcohol withdrawal. Has experienced occasional nausea and vomiting during the past couple weeks. Currently denies fever, chills, nausea, vomiting, or abdominal pain. No headache. In the ED patient was afebrile but tachycardic up to 180 tachypneic up to 23, setting as low as 86% on RA. Labs were significant for potassium of 2.9, AST 115, ALT 92. No leukocytosis, stable H&H. Renal function baseline. Magnesium 1.9. Troponin negative. BNP negative. Lipase WNL at 43. UA negative for UTI. Tox screen positive for marijuana, ethyl alcohol 347 at 08:50. CXR showed no acute cardiopulmonary process. EKG demonstrated normal sinus rhythm with no ev idence of ST elevations or depressions. Pt was treated with thiamine, DuoNebs, lorazepam, Mag sulfate, Solu-Medrol, potassium chloride, ceftriaxone, and started on phenobarb protocol. Pt will be admitted to the hospital for treatment further evaluation of alcohol withdrawal and acute hypoxic respiratory failure in the setting of COPD exacerbation. 52-year-old man treated for hypoxic respiratory failure secondary to COPD exacerbation and hypokalemia secondary to alcohol use and withdrawal. Patient was treated with doxycycline, Solu-Medrol and scheduled DuoNebs. His oxygen status improved significantly and did not require oxygen. He was also treated for alcohol withdrawal with phenobarbital and as needed Ativan. He reported feeling much better and had no alcohol withdrawal symptoms and requested to be discharged. His hyperkalemia was also resolved with repletion. He was sent home with prednisone taper and a few more days of antibiotics. Patient was educated on the importance of alcohol cessation and to find community supports for this. Opiate use disorder. Continue Suboxone Time Attestation Discharge coordination time: Greater than 30 minutes Quality: Safe Use of Opioids Does Pt have an Active Cancer Diagnosis on the Problem List?: No Quality: Stroke Does the patient have a stroke diagnosis?: No Physical Exam Vital Signs: Vital Signs: Last Vital Signs Temp 97.7 F 01/22/23 07:21 Pulse 76 01/22/23 07:21 Resp 18 01/22/23 07:21 BP 167/99 H 01/22/23 07:21 Pulse Ox 95 01/22/23 07:21 O2 Del Method Room Air 01/22/23 07:21 O2 Flow Rate 2 01/20/23 23:04 BMI result Body Mass Index 26.4 Appearing in no acute distress head is normocephalic atraumatic eyes pupils are PERRLA sclera is anicteric mouth throat mucous membranes are intact and moist neck is supple no lymphadenopathy, no JVD noted lung sounds are clear to auscultation heart regular rate rhythm, clear S1, S2 positive bowel sounds, abdomen is soft, nontender neuro patient is alert x3, no focal deficits DS: Data Data Completed and Pending Labs on day of discharge: Laboratory Results - last 24 hr 01/22/23 06:26 WBC 9.2 RBC 4.41 L Hgb 15.2 Hct 42.9 MCV 97.3 MCH 34.5 H MCHC 35.4 RDW 13.2 Plt Count 216 MPV 10.4 Absolute Nucleated RBC 0.000 Nucleated RBC % (auto) 0.0 Sodium 136 Potassium 4.8 D Chloride 95 L Carbon Dioxide 33 H Anion Gap 13 BUN 13 Creatinine 0.78 Estim Creat Clear Calc 87.1 Estimated GFR > 60 Random Glucose 92 Calcium 10.0 Phosphorus 3.1 Magnesium 2.1 Preliminary micro results at discharge 01/19/23 11:02 Blood Culture - Preliminary Blood - Venous No growth after 48 hours. 01/19/23 11:03 Blood Culture - Preliminary Blood - Venous No growth after 48 hours. Discharge Plan Discharge Anticipated Discharge Date/Time: 01/22/23 09:13 Patient Disposition: Home, Self-Care Discharge Diagnosis: COPD exacerbation ETOH abuse and withdrawal Discharge Medications: New ipratropium-albuterol 0.5 mg-3 mg(2.5 mg base)/3 mL Solution For Nebulization 3 ml inhalation RQ4H WHILE AWAKE Qty: 90 0RF doxycycline monohydrate 100 mg Capsule 100 mg PO Q12H Qty: 4 0RF folic acid 1 mg Tablet 1 mg PO DAILY Qty: 30 0RF acamprosate 333 mg Tablet,Delayed Release (Dr/Ec) 666 mg PO TID Qty: 50 0RF thiamine mononitrate (vit B1) 100 mg Tablet 100 mg PO DAILY Qty: 30 0RF prednisone 10 mg tablet See Taper PO DIRECTED Qty: 20 0RF Taper: Prednisone 40 mg daily for 2 Days and 0 Hour 30 mg daily for 2 Days and 0 Hour 20 mg daily for 2 Days and 0 Hour 10 mg daily for 2 Days and 0 Hour Rx Instructions: see taper instructions Continued hydroxyzine HCl 50 mg tablet 50 mg PO BEDTIME PRN (Reason: anxiety) fluticasone propionate [Flovent HFA] 220 mcg/actuation HFA aerosol inhaler 2 puff inhalation DAILY ibuprofen 600 mg tablet 1,200 mg PO DAILY PRN (Reason: fever) buprenorphine-naloxone 8-2 mg film 1 film sublingual BID@0900,1600 buprenorphine-naloxone 8-2 mg film 0.5 film sublingual BEDTIME Discharge Orders: Discharge Order (Routine); Ordered 01/22/23 Ordered By: Krystyna Alves Diet: Advance to usual diet Activity on Discharge: As tolerated Stand Alone Forms: Patient Portal Discharge page Care Plan Goals: Stop drinking alcohol. Find outpatient resources that will help keep you sober. Health Concerns: COPD exacerbation ETOH abuse and withdrawal Plan of Treatment: Follow up with primary care provider as needed take all medications as prescribed Assessment: See discharge summary Discharge Date/Time: 01/22/23 09:57
--- NOTE | 2023-01-22 09:23 | MHC.CM.PN ---
Patient has been medically cleared for dc to home today, self care.Last IMM was addressed on 01/20/2023.
[2023-01-22] MEDS: Acamprosate Calcium 333 MG TABLET.DR 666 MG PO (09:38)
[2023-01-22] MEDS: PHENobarbitaL 15 MG TABLET PO (09:38)
[2023-01-22] MEDS: Doxycycline Monohydrate 100 MG CAPSULE PO (09:38)
[2023-01-22] MEDS: Multivitamin TABLET 1 TAB PO (09:38)
[2023-01-22] MEDS: Thiamine HCL 100 MG TABLET PO (09:38)
[2023-01-22] MEDS: Famotidine 20 MG TABLET PO (09:38)
[2023-01-22] MEDS: Nicotine 14 MG PATCH.TD24 TRANSDERMA (09:39)
[2023-01-22] MEDS: Buprenorphine/Naloxone 8/2 mg FILM 1 FILM SUBLINGUAL (09:42)
== END 2023-01-22 09:57 | disposition home or self-care (01) | DRG 190 ==
LOC: HO.ED 10:46 → HO.EDOVER 12:25 → HO.IMC 17:28
PROVIDERS: Admitting Provider Student in an Organized Health Care Education/Training Program; Emergency Provider Emergency Medicine; Visit Provider Nurse Practitioner Acute Care
DX: J44.1 Chronic obstructive pulmonary disease with (acute) exacerbation (principal); J96.01 Acute respiratory failure with hypoxia; F10.139 Alcohol abuse with withdrawal, unspecified; F11.20 Opioid dependence, uncomplicated; J45.41 Moderate persistent asthma with (acute) exacerbation; E87.6 Hypokalemia; F17.210 Nicotine dependence, cigarettes, uncomplicated; Z20.822 Contact with and (suspected) exposure to COVID-19; Z89.512 Acquired absence of left leg below knee; Z71.6 Tobacco abuse counseling; Z79.51 Long term (current) use of inhaled steroids; Z79.899 Other long term (current) drug therapy
CPT/HCPCS: 36415; 71045; 80048; 80076; 80307; 81001; 83605; 83690; 83735; 83880; 84100; 84484; 85025; 85027; 87040; 87635; 93005; 94640; 99285; J0456; J0696; J1650; J2060; J2405; J2560; J2930; J3411; J3475

== ENCOUNTER → 2023-01-19 12:12 | Outpatient (BNV) | payer OTHER, SELFPAY | PROVIDERS: Admitting Provider Student in an Organized Health Care Education/Training Program; Emergency Provider Emergency Medicine; Visit Provider Student in an Organized Health Care Education/Training Program | DX: J44.1 Chronic obstructive pulmonary disease with (acute) exacerbation (principal); F10.939 Alcohol use, unspecified with withdrawal, unspecified | CPT/HCPCS: 99223; 99233; 99239; 99499 ==

== ENCOUNTER 2023-12-15 18:39 | Emergency (ER) | payer OTHER, SELFPAY ==
--- NOTE | ~2023-12-15 | XR_ITS ---
EXAMINATION: XR CHEST CLINICAL INFORMATION: Chest pain. COMPARISON: January 19, 2023. TECHNIQUE: 2 views of the chest were obtained. FINDINGS: No significant abnormality is noted involving the heart, lungs, mediastinum, bony thorax or soft tissues. XR/XR chest 2V IMPRESSION: Normal chest PA and lateral. Electronically signed by: Laureano Cherry MD 12/15/2023 10:12 PM EDT RP
--- NOTE | 2023-12-15 18:42 | ECG_ITS ---
Test Reason : CHEST PAIN Blood Pressure : / mmHG Vent. Rate : 135 BPM Atrial Rate : 135 BPM P-R Int : 128 ms QRS Dur : 080 ms QT Int : 298 ms P-R-T Axes : 060 025 023 degrees QTc Int : 447 ms Sinus tachycardia Nonspecific ST and T wave abnormality Abnormal ECG When compared with ECG of 19-JAN-2023 09:16, ST now depressed in Anterior leads Heart rate has increased Referred By: Generic ED Physician Electronically Signed By:WELLINGTON ARAYA
[2023-12-15 18:55] VITALS: BP 124/88; PULSE 134; RESP 18; TEMP 37; O2SAT 93; BMI 22.5
[2023-12-15 19:53] LABS: MANUAL DIFF FLAG NO
[2023-12-15 19:54] LABS: Basophils Absolute Auto 0.1 X10*3/uL (0.0-0.2); Basophils Percent Auto 1.2 % (0-2); Eosinophils Absolute Auto 0.1 X10*3/uL (0.0-0.4); Eosinophils Percent Auto 0.8 % (0-4); Hematocrit 39.7 % (42.0-52.0); Hemoglobin 14.6 g/dl (14.0-18.0); Imm Gran Abs Auto 0.03 X10*3/uL (0.00-0.03); Imm Gran Pct Auto 0.3 % (0.0-0.4); Lymphocytes Absolute Auto 2.9 X10*3/uL (1.2-4.9); Lymphocytes Percent Auto 27.9 % (20-40); Mean Corpuscular HGB Conc 36.8 g/dl (31.0-36.0); Mean Corpuscular Hemoglobin 37.1 pg (27.0-33.0); Mean Corpuscular Volume 100.8 fL (80.0-98.0); Mean Platelet Volume 9.9 fL (9.4-12.4); Monocytes Absolute Auto 0.8 X10*3/uL (0.1-1.2); Monocytes Percent Auto 7.4 % (2-11); Neutrophils Absolute Auto 6.4 x10*3/uL (2.0-8.3); Neutrophils Percent Auto 62.4 % (45-73); Platelet Count 174 X10*3/uL (160-400); Red Blood Count 3.94 X10*6/uL (4.60-5.80); Red Cell Distribution Width 12.7 % (11.0-16.0); White Blood Count 10.2 X10*3/uL (4.8-10.8)
[2023-12-15 20:06] LABS: Anion Gap 17 (12-20); Blood Urea Nitrogen 7 mg/dL (9-16); Calcium 9.7 mg/dL (8.4-10.2); Carbon Dioxide 28 mmol/L (22-29); Chloride 100 mmol/L (96-108); Creatinine Clr Calc Pharmacy 91.8; Estimated Glomerular Filt Rate > 60; Glucose Random 121 mg/dL (60-115); Potassium 3.3 mmol/L (3.3-5.1); Sodium 142 mmol/L (135-145)
[2023-12-15 20:14] LABS: Troponin-I High Sensitivity 2.7 ng/L (<3.5-35.0)
[2023-12-15 20:30] LABS: COVID-19 Test Negative (Negative); IDNOW Serial# 16C4AD1C; IDNOW Serial# 55D5AD1C; Influenza A Negative (Negative); Influenza B2 Negative (Negative)
[2023-12-15 21:00] VITALS: BP 132/79; PULSE 86; RESP 14; TEMP 36.8; O2SAT 97
--- NOTE | 2023-12-15 22:22 | ED_ITS ---
HPI - Chest Pain General Chief Complaint: Chest Pain Stated Complaint: Chest pain, diff breathing, multiple complaints Time Seen by Provider: 12/15/23 21:14 Source: patient Limitations: no limitations History of Present Illness ED Provider: Alysia Petersen PA-C HPI narrative: 52-year-old male with a history of homelessness, alcohol abuse, tobacco abuse, COPD/asthma, presents with multiple complaints. Patient states he developed left anterior chest discomfort this morning, pain described as pressure. Associated cough with wheezing. Denies fevers. Patient also states he has had nausea vomiting diarrhea for 2 weeks. Denies abdominal pain. Patient last drank alcohol 2 hours prior to arrival. He states he drinks a L of vodka a day. Patient has had alcohol withdrawal in the past without seizure activity. Related Data Home Medications ?Medication ?Instructions ?Recorded ?Confirmed albuterol sulfate 2.5 mg/3 mL 2.5 mg inhalation Q4H PRN Wheezing 12/16/23 12/16/23 (0.083 %) solution for nebulization albuterol sulfate 90 mcg/actuation 2 puff inhalation Q4H PRN 12/16/23 12/16/23 aerosol inhaler Shortness Of Breath Or Wheezing buprenorphine 8 mg-naloxone 2 mg 0.5 film sublingual BEDTIME 12/16/23 12/16/23 sublingual film buprenorphine 8 mg-naloxone 2 mg 1 film sublingual DAILY 12/16/23 12/16/23 sublingual film buprenorphine 8 mg-naloxone 2 mg 1 film sublingual DAILY@1700 12/16/23 12/16/23 sublingual film ondansetron HCl 4 mg tablet 4 mg PO BID PRN nausea 12/16/23 12/16/23 umeclidinium 62.5 mcg-vilanterol 1 ea inhalation DAILY 12/16/23 12/16/23 25 mcg/actuation powdr for inhalation (Anoro Ellipta) Previous Rx's ?Medication ?Instructions ?Recorded benzonatate 100 mg capsule 200 mg (2 x 100 mg) PO TID PRN 12/19/23 Cough #20 caps folic acid 1 mg tablet 1 mg PO DAILY #30 tabs 12/19/23 Allergies Allergy/AdvReac Type Severity Reaction Status Date / Time No Known Allergies Allergy Verified 12/16/23 04:19 Review of Systems 2 Review of Systems: Yes all other systems are reviewed and are negative Constitutional: Constitutional: Denies fever(s) Cardiovascular: Cardiovascular: Reports chest pain and Reports dyspnea Respiratory: Respiratory: Reports cough, Reports dyspnea and Reports wheezing Gastrointestinal: Gastrointestinal: Denies abdominal pain, Reports diarrhea, Reports nausea and Reports vomiting Allergic/Immunologic: Allergic/Immunologic: Reports wheezing PMFSH Past Medical History Attestation statement: The following information was validated with the patient. Medical History Alcohol abuse RAD (reactive airway disease) Amputation above knee Opiate dependence Alcohol abuse COPD (chronic obstructive pulmonary disease) Social History Social History Household Members: Family Household Members Other:: Cousin Housing: House Do you presently have visiting nurse or other home services: No Alcohol intake: current Alcohol intake frequency: 3 or more drinks per day Alcohol type: hard liquor Comment: pt refuses high risk interventions Patient Tobacco Use Status: Current everyday Tobacco user Tobacco use type: Cigarette Cigarette Packs Per Day: 1 Cigarettes Per Day: 20.0 e-Cigarette/Vaping Use: Currently Using Second Hand Smoke Exposure: Yes Substance Use Type: Marijuana Advance Directives Date on File: 01/23/23 service: No Physical Exam 2 Vital Signs: Vital Signs: Last Vital Signs Temp 98.2 F 12/16/23 00:30 Pulse 92 12/16/23 00:30 Resp 16 12/16/23 00:30 BP 116/71 12/16/23 00:30 Pulse Ox 96 12/16/23 00:30 O2 Del Method Room Air 12/16/23 00:30 BMI result Body Mass Index 22.5 Const: Other: Awake, appears older than stated age, sitting up in bed resting comfortably Orientation/consciousness: patient oriented x3 Resp: Other: Dry bronchospasm type cough, scattered expiratory wheezes posterior gregory, nonlabored respirations Cardio: Other: Normal peripheral perfusion GI: Other: Abdomen is soft, nondistended, nontender Skin: Other: Warm dry no rash Neuro: General: patient oriented x3, no focal motor deficits and CN's II-XI intact bilaterally Psych: Other: Cooperative Course Reevaluation(s) Reevaluation #1: Patient's symptoms improved after updraft and steroid, he ate and drank, again has not had any active symptoms, he has been resting comfortably in bed with his eyes closed. At the time of discharge, patient asked me ?what about my withdrawal symptoms?, he is now shaking in bed. To note, the patient has not been tremulous, he has become tremulous in the setting of being discharged. He is now becoming hostile and belligerent. Medications Administered Discontinued Medications Generic Name Dose Route Start Last Admin Trade Name Fermin PRN Reason Stop Dose Admin Albuterol Sulfate 7.5 mg 12/15/23 22:30 12/15/23 22:59 Albuterol Sulfate (0.083%) 2.5 Mg/3 Ml Vial.Neb INHALE 12/15/23 22:31 7.5 mg ONCE ONE Administration Prednisone 40 mg 12/15/23 22:35 12/15/23 23:03 Prednisone 20 Mg Tablet PO 12/15/23 22:36 40 mg ONCE ONE Administration Medical Decision Making Medical Decision Making MDM Narrative: 52-year-old male with a history of homelessness, alcohol abuse, tobacco abuse, COPD/asthma, presents with multiple complaints. Patient states he developed left anterior chest discomfort this morning, pain described as pressure. Associated cough with wheezing. Denies fevers. Patient also states he has had nausea vomiting diarrhea for 2 weeks. Denies abdominal pain. Patient last drank alcohol 2 hours prior to arrival. He states he drinks a L of vodka a day. Patient has had alcohol withdrawal in the past without seizure activity. Problem: Tobacco abuse ,alcohol abuse,homelessness , COPD History: Per patient I have considered the following differential diagnoses: COPD exacerbation, pneumonia, viral syndrome, ACS, acute intra-abdominal pathology, viral gastroenteritis , malingering Plan: In regard to patient's chest discomfort, ACS was considered, screening labs including cardiac enzyme, EKG and chest x-ray obtained. The patient has active wheezing with the cough on exam, we will treat him for COPD exacerbation, viral panel pending. In regard to the nausea vomiting diarrhea, the patient has not had active symptoms since he has been here in the ER, his abdominal exam was benign, he has had symptoms for weeks per his report, there was no indication to obtain imaging at this time. Furthermore, he is asking to eat and drink. I have independently reviewed the following tests: Labs: No leukocytosis, not anemic, no electrolyte abnormality, troponin x2 negative EKG: Normal sinus rhythm, rate 86, no ischemic changes no ectopy Chest x-ray: XR CHEST CLINICAL INFORMATION: Chest pain. COMPARISON: January 19, 2023. TECHNIQUE: 2 views of the chest were obtained. FINDINGS: No significant abnormality is noted involving the heart, lungs, mediastinum, bony thorax or soft tissues. XR/XR chest 2V IMPRESSION: Normal chest PA and lateral. Electronically signed by: Laureano Cheryr MD 12/15/2023 10:12 PM EDT RP Lab Data 12/15/23 19:46 12/15/23 19:46 Labs: Lab Results 12/15/23 12/15/23 Range/Units 19:46 22:13 WBC 10.2 (4.8-10.8) X10*3/uL RBC 3.94 L (4.60-5.80) X10*6/uL Hgb 14.6 (14.0-18.0) g/dl Hct 39.7 L (42.0-52.0) % MCV 100.8 H (80.0-98.0) fL MCH 37.1 H (27.0-33.0) pg MCHC 36.8 H (31.0-36.0) g/dl RDW 12.7 (11.0-16.0) % Plt Count 174 (160-400) X10*3/uL MPV 9.9 (9.4-12.4) fL Immature Gran % (Auto) 0.3 (0.0-0.4) % Neut % (Auto) 62.4 (45-73) % Lymph % (Auto) 27.9 (20-40) % [place] % (Auto) 7.4 (2-11) % Eos % (Auto) 0.8 (0-4) % Baso % (Auto) 1.2 (0-2) % Lymph # (Auto) 2.9 (1.2-4.9) X10*3/uL [place] # (Auto) 0.8 (0.1-1.2) X10*3/uL Eos # (Auto) 0.1 (0.0-0.4) X10*3/uL Baso # (Auto) 0.1 (0.0-0.2) X10*3/uL Abs Immat Gran (auto) 0.03 (0.00-0.03) X10*3/uL Absolute Neuts (auto) 6.4 (2.0-8.3) x10*3/uL Absolute Nucleated RBC 0.000 (0.0-0.012) X10*3/uL Nucleated RBC % (auto) 0.0 (0.0-0.2) /100WBC Sodium 142 (135-145) mmol/L Potassium 3.3 (3.3-5.1) mmol/L Chloride 100 (96-108) mmol/L Carbon Dioxide 28 (22-29) mmol/L Anion Gap 17 (12-20) BUN 7 L (9-16) mg/dL Creatinine 0.74 (0.5-1.4) mg/dL Estim Creat Clear Calc 91.8 Estimated GFR > 60 Random Glucose 121 H (60-115) mg/dL Calcium 9.7 (8.4-10.2) mg/dL Troponin I High Sens 2.7 2.7 (<3.5-35.0) ng/L COVID-19 ([facility]) Negative (Negative) COVID-19 Clin Com See Note Influenza Type A ([facility]) Negative (Negative) Influenza Type B ([facility]ANVI) Negative (Negative) Influenza A & B Note See Note Discharge Plan Discharge Clinical Impression: Chest pain, COPD exacerbation Patient Disposition: Home, Self-Care Instructions: Chest Pain (ED), COPD (Chronic Obstructive Pulmonary Disease) (ED) Additional Instructions: All of your screening labs including 2 cardiac enzymes were normal. There were no concerning changes on her EKG and your chest x-ray was clear. You were given an updraft your COPD, take the steroid taper as directed. In regard to your watery eyes, this is allergic conjunctivitis. Use the drops as directed. Follow up with your primary care provider as needed. Prescriptions: No Action albuterol sulfate 2.5 mg /3 mL (0.083 %) solution for nebulization 2.5 mg inhalation Q4H PRN (Reason: Wheezing) ondansetron HCl 4 mg tablet 4 mg PO BID PRN (Reason: nausea) albuterol sulfate 90 mcg/actuation HFA aerosol inhaler 2 puff inhalation Q4H PRN (Reason: Shortness Of Breath Or Wheezing) buprenorphine-naloxone 8-2 mg film 1 film sublingual DAILY buprenorphine-naloxone 8-2 mg film 1 film sublingual DAILY@1700 buprenorphine-naloxone 8-2 mg film 0.5 film sublingual BEDTIME Anoro Ellipta 62.5-25 mcg/actuation blister with device 1 ea INHALATION DAILY benzonatate 100 mg Capsule 200 mg PO TID PRN (Reason: Cough) Qty: 20 0RF folic acid 1 mg Tablet 1 mg PO DAILY Qty: 30 0RF Interventions: ED Discharge Assessment Last Done: 12/16/23 00:30 Discharge Date/Time: 12/16/23 00:31 Print Language: Telugu
[2023-12-15 22:51] LABS: Troponin-I High Sensitivity 2.7 ng/L (<3.5-35.0)
[2023-12-15 22:52] VITALS: BP 126/81; PULSE 72; RESP 16; O2SAT 94
[2023-12-15] MEDS: Albuterol Sulfate (0.083%) 2.5 MG/3 ML VIAL.NEB 7.5 MG INHALE (22:59)
[2023-12-15 23:01] VITALS: PULSE 87; RESP 16; O2SAT 96
[2023-12-15] MEDS: predniSONE 20 MG TABLET 40 MG PO (23:03)
--- NOTE | 2023-12-15 23:16 | ECG_ITS ---
Test Reason : REPEAT Blood Pressure : / mmHG Vent. Rate : 086 BPM Atrial Rate : 086 BPM P-R Int : 112 ms QRS Dur : 082 ms QT Int : 358 ms P-R-T Axes : -03 039 -16 degrees QTc Int : 428 ms Normal sinus rhythm Nonspecific ST and T wave abnormality Abnormal ECG When compared with ECG of 15-DEC-2023 18:40, Vent. rate has decreased BY 49 BPM T wave inversion now evident in Anterior leads Referred By: Alysia Petersen Electronically Signed By:WELLINGTON ARAYA
--- NOTE | 2023-12-16 00:05 | PC.NURSE ---
Spoke with patient provider prior to discharge about concerns for patient withdrawing at time of discharge. Provider stated that he was given resources and not currently withdrawing and would still be discharged. I advocated for this patient to stay by also letting the provider know that his CIWA was a nine and the patient was very tremulous. Patient was also asking for detox and to see the care team about going to a detox facility the next morning. provider stated, he is just homeless and wants a place to sleep. Nurse informed provider that patient in fact was not homeless and was from [place] but did not have a ride as it was the middle of the night and his only way home was to walk (with one leg) back to [place]. Patient stated he was going to wait in the waiting room till morning to call for a ride.
[2023-12-16 00:20] VITALS: BP 116/71; PULSE 92; RESP 16; TEMP 36.8; O2SAT 96
[2023-12-16 00:30] VITALS: BP 116/71; PULSE 92; RESP 16; TEMP 36.8; O2SAT 96
== END 2023-12-16 00:31 | disposition home or self-care (01) ==
PROVIDERS: Physician Assistant Medical; Emergency Provider Internal Medicine
DX: R07.9 Chest pain, unspecified (principal); J44.1 Chronic obstructive pulmonary disease with (acute) exacerbation; F10.10 Alcohol abuse, uncomplicated; R00.0 Tachycardia, unspecified; Z79.899 Other long term (current) drug therapy; Z59.00 Homelessness unspecified; Z89.619 Acquired absence of unspecified leg above knee
CPT/HCPCS: 36415; 71046; 80048; 84484; 85025; 87502; 87635; 93005; 94640; 99284; 99285

== ENCOUNTER 2023-12-16 04:13 | Inpatient (IN) | payer OTHER, SELFPAY ==
[2023-12-16] VITALS (8 sets, daily range): BP systolic 129–174; BP diastolic 78–104; PULSE 80–111; RESP 14–20; TEMP 36.6–36.8; O2SAT 93–98; BMI 22.5
[2023-12-16 04:42] LABS: MANUAL DIFF FLAG NO
[2023-12-16 04:43] LABS: Basophils Absolute Auto 0.1 X10*3/uL (0.0-0.2); Basophils Percent Auto 1.2 % (0-2); Hematocrit 39.9 % (42.0-52.0); Hemoglobin 14.5 g/dl (14.0-18.0); Imm Gran Abs Auto 0.01 X10*3/uL (0.00-0.03); Imm Gran Pct Auto 0.2 % (0.0-0.4); Lymphocytes Absolute Auto 0.6 X10*3/uL (1.2-4.9); Lymphocytes Percent Auto 12.7 % (20-40); Mean Corpuscular HGB Conc 36.3 g/dl (31.0-36.0); Mean Corpuscular Hemoglobin 36.7 pg (27.0-33.0); Mean Platelet Volume 9.7 fL (9.4-12.4); Monocytes Absolute Auto 0.1 X10*3/uL (0.1-1.2); Monocytes Percent Auto 2.6 % (2-11); Neutrophils Absolute Auto 4.1 x10*3/uL (2.0-8.3); Neutrophils Percent Auto 83.3 % (45-73); Platelet Count 164 X10*3/uL (160-400); Red Blood Count 3.95 X10*6/uL (4.60-5.80); Red Cell Distribution Width 12.6 % (11.0-16.0)
--- NOTE | 2023-12-16 04:59 | PC.NURSE ---
Addendum entered by Shannon Stanley 12/16/23 05:01: provider made aware, verbal order for IV zofran Original Note: upon walking into ed 16, patient began vomiting, states that this just began. no history of withdrawal seizures however states he has been admitted previously for withdrawal. dry heaving, visibly sweating on forehead. IV established, labs obtained during triage. tremulous.
[2023-12-16 05:05] LABS: Alanine Aminotransferase 123 U/L (0-40); Albumin Level 4.7 g/dL (3.5-5.0); Alkaline Phosphatase 100 U/L (39-117); Anion Gap 23 (12-20); Aspartate Amino Transferase 252 U/L (5-37); Bilirubin Total 1.8 mg/dL (0.0-1.0); Blood Urea Nitrogen 7 mg/dL (9-16); Carbon Dioxide 21 mmol/L (22-29); Chloride 102 mmol/L (96-108); Creatinine Clr Calc Pharmacy 88.2; Estimated Glomerular Filt Rate > 60; Ethanol 103 mg/dL; Glucose Random 169 mg/dL (60-115); Potassium 3.3 mmol/L (3.3-5.1); Sodium 143 mmol/L (135-145); Total Protein 8.2 g/dL (6.5-8.0)
[2023-12-16] MEDS: ondansetron HCL 4 MG/2 ML VIAL IVPUSH ×3 (05:06→16:14)
[2023-12-16 05:09] LABS: Lipase 71 U/L (8-78); Magnesium 1.8 mg/dL (1.6-2.6)
[2023-12-16] MEDS: PHENobarbitaL sodium 130 MG/ML VIAL 274 MG IM (05:30)
--- NOTE | 2023-12-16 05:36 | PC.NURSE ---
patient medicated w/ first dose of phenobarb. states he feels better after the zofran administration. provided with ice chips
[2023-12-16] MEDS: Lactated Ringers 1,000 ML 999 ML IV (05:40)
--- NOTE | 2023-12-16 06:13 | ED.GENADULT ---
HPI - General Adult General Chief complaint: ETOH/Substance Use Stated complaint: alcohol withdrawals Time Seen by Provider: 12/16/23 05:02 History of Present Illness ED Provider: Mars MARISCAL narrative: The patient is a 52-year-old male with a long history of alcoholism. He also has a history of hepatitis-C. He says he has been drinking very heavily recently and he believes he has lost about 25 lb in the last couple of months. He says that he feels that his need to drink has increased recently. He came to the emergency room yesterday evening because of his concern that he was drinking so much. He was seen by the recovery team and discharged several hours ago with the plan for outpatient resources. The patient was discharged to the waiting room as he did not have a ride home. While in the waiting room he became significantly tremulous in checked in again. At triage he was found to be tachycardic and hypertensive. He has had no particular abdominal pain. He says he was last sober when he was hospitalized about a year ago for alcohol withdrawal and hypokalemia. He has a history of hepatitis-C. He says that he was treated for hepatitis C a few years ago but it was unsuccessful. Related Data Allergies Allergy/AdvReac Type Severity Reaction Status Date / Time No Known Allergies Allergy Verified 12/16/23 04:19 Review of Systems Review of Systems: Yes all other systems are reviewed and are negative [facility] Past Medical History Medical History Amputation above knee Opiate dependence Alcohol abuse COPD (chronic obstructive pulmonary disease) Social History Social History Household Members: Other Household Members Other:: Cousin Housing: House Do you presently have visiting nurse or other home services: Yes ([employer] [place]) Alcohol intake: current Alcohol intake frequency: 3 or more drinks per day Alcohol type: hard liquor Comment: pt refuses high risk interventions Patient Tobacco Use Status: Current everyday Tobacco user Tobacco use type: Cigarette Cigarettes Per Day: 10 e-Cigarette/Vaping Use: Currently Using Second Hand Smoke Exposure: Yes Substance Use Type: Marijuana Advance Directives: Yes Advance Directives on File: Yes Advance Directives Date on File: 01/23/23 Do you have a plan to hurt others: No Plan service: No Physical Exam ED Vital Signs: Vital Signs - 24 hr 12/16/23 04:18 12/16/23 06:49 Temperature 98 F Pulse Rate 111 H 91 Respiratory Rate 20 18 Blood Pressure 174/100 H 131/78 Pulse Oximetry 96 93 Oxygen Delivery Method Room Air Room Air BMI result Body Mass Index 22.5 Const Other: The patient is a 52-year-old male who is awake and alert and very shaky. He looks somewhat cachectic. HENMT Other: Face is symmetrical. Mucous membranes not obviously dry. Eyes Other: Pupils are round equal, conjunctivae clear, no scleral icterus Neck Neck: Yes no JVD Resp Effort & Inspection: normal respiratory effort Auscultation: clear to auscultation bilaterally Cardio Rate: tachycardic Rhythm: regular rhythm Heart sounds: S1 normal heart sound present and S2 normal heart sound present GI Other: The abdomen is soft and nontender. No right upper quadrant tenderness. Skin Other: Skin is mildly diaphoretic Neuro Other: The patient is awake and alert. He seems oriented and appropriate. Cognition seems appropriate. Cranial nerves are intact. He moves his arms normally. Moves his legs well although his left leg is prosthetic with a [id number] amputation. He is tremulous but otherwise neurologically intact. Extrem Other: The patient has a left leg [id number] amputation. The right leg is not edematous. No calf swelling or tenderness. Medications Administered Discontinued Medications Generic Name Dose Route Start Last Admin Trade Name Freq PRN Reason Stop Dose Admin Lactated Ringer's 1,000 mls @ 999 mls/hr 12/16/23 05:30 12/16/23 06:49 Lr IV 12/16/23 06:30 Infused .Q1H1M LEVY Infusion Ondansetron HCl 4 mg 12/16/23 04:57 12/16/23 05:06 Ondansetron Hcl 4 Mg/2 Ml Vial IVPUSH 12/16/23 04:58 4 mg ONCE ONE Administration Phenobarbital Sodium 274 mg 12/16/23 05:23 12/16/23 05:30 Phenobarbital Sodium 130 Mg/Ml Vial IM 12/16/23 05:24 274 mg STAT STA Administration Medical Decision Making Medical Decision Making [facility] Narrative: The patient is a 52-year-old male with a history of alcoholism who presents in obvious alcohol withdrawal. He is tachycardic, hypertensive, and tremulous. His CIWA was 15. He was given intramuscular phenobarbital. He will be admitted to the hospitalist service. Lab Data 12/16/23 04:33 12/16/23 04:33 Labs: Lab Results 12/16/23 Range/Units 04:33 WBC 5.0 (4.8-10.8) X10*3/uL RBC 3.95 L (4.60-5.80) X10*6/uL Hgb 14.5 (14.0-18.0) g/dl Hct 39.9 L (42.0-52.0) % MCV 101.0 H (80.0-98.0) fL MCH 36.7 H (27.0-33.0) pg MCHC 36.3 H (31.0-36.0) g/dl RDW 12.6 (11.0-16.0) % Plt Count 164 (160-400) X10*3/uL MPV 9.7 (9.4-12.4) fL Immature Gran % (Auto) 0.2 (0.0-0.4) % Neut % (Auto) 83.3 H (45-73) % Lymph % (Auto) 12.7 L (20-40) % [place] % (Auto) 2.6 (2-11) % Eos % (Auto) 0.0 (0-4) % Baso % (Auto) 1.2 (0-2) % Lymph # (Auto) 0.6 L (1.2-4.9) X10*3/uL [place] # (Auto) 0.1 (0.1-1.2) X10*3/uL Eos # (Auto) 0.0 (0.0-0.4) X10*3/uL Baso # (Auto) 0.1 (0.0-0.2) X10*3/uL Abs Immat Gran (auto) 0.01 (0.00-0.03) X10*3/uL Absolute Neuts (auto) 4.1 (2.0-8.3) x10*3/uL Absolute Nucleated RBC 0.000 (0.0-0.012) X10*3/uL Nucleated RBC % (auto) 0.0 (0.0-0.2) /100WBC Sodium 143 (135-145) mmol/L Potassium 3.3 (3.3-5.1) mmol/L Chloride 102 (96-108) mmol/L Carbon Dioxide 21 L (22-29) mmol/L Anion Gap 23 H (12-20) BUN 7 L (9-16) mg/dL Creatinine 0.77 (0.5-1.4) mg/dL Estim Creat Clear Calc 88.2 Estimated GFR > 60 Random Glucose 169 H (60-115) mg/dL Calcium 10.0 (8.4-10.2) mg/dL Magnesium 1.8 (1.6-2.6) mg/dL Total Bilirubin 1.8 H (0.0-1.0) mg/dL Direct Bilirubin 1.0 H (0.0-0.5) mg/dL AST 252 H (5-37) U/L ALT 123 H (0-40) U/L Alkaline Phosphatase 100 (39-117) U/L Total Protein 8.2 H (6.5-8.0) g/dL Albumin 4.7 (3.5-5.0) g/dL Lipase 71 (8-78) U/L Ethyl Alcohol 103 mg/dL Discharge Plan Discharge Clinical Impression: Alcohol withdrawal Patient Disposition: Admitted As Inpatient Print Language: Rwandan
--- NOTE | 2023-12-16 06:17 | PC.NURSE ---
reports improvement s/p phenobarb. states the tremors have improved slightly and he is less diaphoretic. appears more comfortable at this time, resting quietly with eyes closed on stretcher
--- NOTE | 2023-12-16 08:25 | P.HPHOSP_ITS ---
History of Present Illness Date of Service: 12/16/23 Chief Complaint: Alcohol withdrawal 52yo M with hx of traumatic L AKA, AUD, OUD on Suboxone, and HCV [unsuccessfully treated], last sober in January 2023 during his last hospitalization for alcohol withdrawal, drinking about a liter of vodka a day with 25 lb weight loss over the last 2 months due to poor PO intake. He has actually increased EtOH intake lately and came to the ED yesterday because he was worried about drinking so much. He was seen by the Recovery Team and discharged home with outpatient resources but while in the waiting room, he became extremely tremulous and was found to be hypertensive and tachycardic. He has a significant transaminasemia with AST 252 > ALT 123. Tbili 1.8. Anion gap 23, bicarbonate 21; serum ethanol 103. He denies abdominal pain. He was started on phenobarbital IM->PO taper. Review of Systems 2 Review of Systems: Yes all other systems are reviewed and are negative [facility] Medical History Alcohol abuse RAD (reactive airway disease) Amputation above knee Opiate dependence Alcohol abuse COPD (chronic obstructive pulmonary disease) Social History Household Members: Other Household Members Other:: Cousin Housing: House Do you presently have visiting nurse or other home services: Yes ([employer]) Alcohol intake: current Alcohol intake frequency: 3 or more drinks per day Alcohol type: hard liquor Comment: pt refuses high risk interventions Patient Tobacco Use Status: Current everyday Tobacco user Tobacco use type: Cigarette Cigarettes Per Day: 10 e-Cigarette/Vaping Use: Currently Using Second Hand Smoke Exposure: Yes Substance Use Type: Marijuana Advance Directives: Yes Advance Directives on File: Yes Advance Directives Date on File: 01/23/23 Do you have a plan to hurt others: No Plan service: No Meds Allergies Allergy/AdvReac Type Severity Reaction Status Date / Time No Known Allergies Allergy Verified 12/16/23 04:19 Active Medications: Current Medications Acetaminophen (Acetaminophen 325 Mg Tablet) 650 mg PO Q6H PRN PRN Reason: Pain, Mild (Pain Scale 1-3), fever or headache Calcium Carbonate (Calcium Carbonate 750 Mg Tab.Chew) 750 mg PO Q4H PRN PRN Reason: Heartburn Enoxaparin Sodium (Enoxaparin Sodium 40 Mg/0.4 Ml Syringe) 40 mg SUBCUT Q24H [facility] Lactated Ringer's (Lr) 1,000 mls @ 100 mls/hr IVCONT .Q10H [facility] Magnesium Hydroxide (Milk Of Magnesia 30 Ml Oral.Susp) 30 ml PO DAILY PRN PRN Reason: Constipation Melatonin (Melatonin 3 Mg Tablet) 6 mg PO BEDTIME PRN PRN Reason: Insomnia Ondansetron HCl (Ondansetron Hcl 4 Mg/2 Ml Vial) 4 mg IVPUSH Q4H PRN PRN Reason: Nausea and Vomiting Pharmacy Consult (Consult Rx Etoh Phenob Im/Po) 1 each MISCELLANE ONCE PRN; Protocol PRN Reason: Consult order Phenobarbital 30 mg/ (Phenobarbital 15 mg) 45 mg PO BID [facility] Stop: 12/17/23 21:01 Phenobarbital (Phenobarbital 15 Mg Tablet) 15 mg PO BID [facility] Stop: 12/19/23 21:01 Phenobarbital (Phenobarbital 15 Mg Tablet) 15 mg PO QD [facility] Stop: 12/21/23 09:01 Phenobarbital Sodium (Phenobarbital Sodium 130 Mg/Ml Vial) 205 mg IM Q3H [facility] Stop: 12/16/23 11:31 Sodium Chloride (0.9 % Sodium Chloride Flush 3 Ml Syringe) 3 ml IVFLUSH QSHIFT [facility] Home Medications ?Medication ?Instructions ?Recorded ?Confirmed ?Last Taken ?Type albuterol sulfate 2.5 mg/3 mL 2.5 mg inhalation Q4H PRN Wheezing 12/16/23 Unknown History (0.083 %) solution for nebulization albuterol sulfate 90 mcg/actuation 2 puff inhalation Q4H PRN 12/16/23 Unknown History aerosol inhaler Shortness Of Breath Or Wheezing buprenorphine 8 mg-naloxone 2 mg 0.5 film sublingual BEDTIME 12/16/23 Unknown History sublingual film buprenorphine 8 mg-naloxone 2 mg 1 film sublingual DAILY 12/16/23 Unknown History sublingual film buprenorphine 8 mg-naloxone 2 mg 1 film sublingual DAILY@1400 12/16/23 Unknown History sublingual film ondansetron HCl 4 mg tablet 4 mg PO BID PRN nausea 12/16/23 Unknown History umeclidinium 62.5 mcg-vilanterol 1 ea inhalation DAILY 12/16/23 Unknown History 25 mcg/actuation powdr for inhalation (Anoro Ellipta) Physical Exam 2 Vital Signs and Narrative: Vital Signs: Last Vital Signs Temp 97.9 F 12/16/23 08:22 Pulse 99 12/16/23 08:23 Resp 15 12/16/23 08:22 BP 167/100 H 12/16/23 08:23 Pulse Ox 98 12/16/23 08:22 O2 Del Method Room Air 12/16/23 08:22 BMI result Body Mass Index 22.5 Gen: tremulous HEENT: sclera anicteric, moist mucus membranes Neck: supple Lungs: clear to auscultation bilaterally Heart: tachycardic, murmurs Abd: soft, non-tender, non-distended Ext: no edema; L AKA; uses prosthesis to ambulate Skin: warm/well-perfused Neuro: alert and oriented x3, no focal findings Psych: appropriate affect Results Labs 12/16/23 04:33 12/16/23 04:33 Labs: Laboratory Results - last 24 hr 12/16/23 04:33 MCV 101.0 H MCH 36.7 H MCHC 36.3 H RDW 12.6 Plt Count 164 MPV 9.7 Immature Gran % (Auto) 0.2 Neut % (Auto) 83.3 H Lymph % (Auto) 12.7 L [place] % (Auto) 2.6 Eos % (Auto) 0.0 Baso % (Auto) 1.2 Lymph # (Auto) 0.6 L [place] # (Auto) 0.1 Eos # (Auto) 0.0 Baso # (Auto) 0.1 Abs Immat Gran (auto) 0.01 Absolute Neuts (auto) 4.1 Absolute Nucleated RBC 0.000 Nucleated RBC % (auto) 0.0 Anion Gap 23 H Estim Creat Clear Calc 88.2 Estimated GFR > 60 Random Glucose 169 H Calcium 10.0 Magnesium 1.8 Total Bilirubin 1.8 H Direct Bilirubin 1.0 H AST 252 H ALT 123 H Alkaline Phosphatase 100 Total Protein 8.2 H Albumin 4.7 Lipase 71 Ethyl Alcohol 103 Assessment and Plan (1) Alcohol withdrawal: Status: Acute Plan 52yo M with AUD with hx of withdrawal, OUD on Suboxone, HCV with failed prior treatment, and traumatic L AKA presenting with acute alcohol withdrawal acute alcohol withdrawal - admit to telemetry, phenobarbital IM->PO taper, IV thiamine [will check serum level], PO folate, IV LR, Addiction Medicine, sobriety counseling alcoholic ketoacidosis - IV fluids as above, recheck BMP in AM alcoholic hepatitis - check INR and repeat LFTs in AM; no steroids indicated at this point HCV - check viral load; suspect most of the hepatitis is due to EtOH rather than HCV, though OUD - continue Suboxone VTE prophylaxis - enoxaparin dispo - home vs residential program eventually code status - full I anticipate that the patient will stay at least 2 midnights as an inpatient in the hospital due to the above reasons. It is neither reasonable nor safe to care for them in a less acute setting. Quality Stroke Does the patient have a stroke diagnosis?: No VTE Prior VTE?: No VTE Risk Level:: Medical - moderate - high VTE Device Contraindication: N/A - Device Ordered VTE Drug Contraindication: N/A - Med Ordered
[2023-12-16] MEDS: PHENobarbitaL sodium 130 MG/ML VIAL 205 MG IM ×2 (08:32→11:54)
--- NOTE | 2023-12-16 08:33 | MHC.RECOVRN ---
Met with pt in ED16 where he was observed to be diaphoretic with beads of sweat on his forehead, coarse tremors on his hands, and restless. Pt said I am withdrawing from alcohol. I need help . ED nurse notified and phenobarb dose administered per protocol. Will meet with patient later on when he is feeling better to discuss recovery/addiction resources and supports, ATS, CECILY, harm reduction, and other options for recovery.
[2023-12-16 08:42] LABS: Amphetamine Screen Urine Not Detected (Not Detect); Barbiturates, Urine POSITIVE (Not Detect); Benzodiazepines Screen Urine Not Detected (Not Detect); Buprenorphine Scr Positive (Not Detect); Cannabinoid Screen Urine POSITIVE (Not Detect); Cocaine Screen Urine Not Detected (Not Detect); Fentanyl, urine Not Detected (Not Detect); Methadone Screen, Urine Not Detected (Not Detect); Opiate Screen Urine Not Detected (Not Detect); Oxycodone Screen Urine Not Detected (Not Detect); Phencyclidine Screen Urine Not Detected (Not Detect)
--- NOTE | 2023-12-16 08:47 | PHA.MEDREC ---
Pharmacy Consult ? Medication Reconciliation Pharmacy has completed the medication reconciliation.Spoke to patient at bedside, takes 2.5 films Suboxone daily- 1 film upon waking, next at dinner and 1/2 film at bedtime.
[2023-12-16] MEDS: PHENobarbitaL 30 MG, PHENobarbitaL 15 MG 45 MG PO ×2 (09:19→20:25)
[2023-12-16] MEDS: Folic Acid 1 MG TABLET PO (09:19)
[2023-12-16] MEDS: Thiamine HCL 100 MG in 0.9 % Sodium Chloride 100 ML 202 MG IV ×2 (09:19→20:26)
[2023-12-16] MEDS: Enoxaparin Sodium 40 MG/0.4 ML SYRINGE SUBCUT (09:22)
[2023-12-16] MEDS: Lactated Ringers 1,000 ML 100 ML IVCONT ×2 (09:23→19:25)
--- NOTE | 2023-12-16 09:53 | MHC.RECOVRN ---
Met with pt in ED16. Pt still had large beads of sweat on his face and tremors - ED nurse and MD made aware, PO dose of phenobarb administered per protocol. Pt reported he has been drinking about 1 Liter of hard alcohol every day (vodka). Pt has been using alcohol for about 40 years but it had only been beers until 5 years ago . Pt also reports daily marijuana use which he is not worried about. Pt denies using any other substances. Pt was considering detox however, given pt's presentation, he was admitted to [facility] for closer observation and detoxification there. Pt has a history of inpatient ATS admissions I've been to detox about 5 times this year - including [facility] (reports being there 4 times this year) and another place in [place] . Discussed CECILY becerrable at the [facility] [place] [place] [facility] walk-in clinic hours, and recovery coaching. Provided pt with educational materials on ATS, IOPs, harm reduction, and other local supports. Pt to be referred to the [facility] for a follow up meeting with the Recovery Team.
--- NOTE | 2023-12-16 11:42 | PC.NURSE ---
patient continues to ambulate independently to the bathroom, ciwa of 8 at this time.
[2023-12-16] MEDS: Buprenorphine/Naloxone 8/2 mg FILM 1 FILM SUBLINGUAL (11:53)
[2023-12-16] MEDS: Buprenorphine/Naloxone 8/2 mg FILM 0.5 FILM SUBLINGUAL (20:27)
[2023-12-16] MEDS: Melatonin 3 MG TABLET 6 MG PO (20:34)
[2023-12-16] MEDS: Acetaminophen 325 MG TABLET 650 MG PO (20:34)
[2023-12-16] MEDS: Calcium Carbonate 750 MG TAB.CHEW PO (20:35)
--- NOTE | 2023-12-16 22:58 | PC.NURSE ---
pt resting at this time, resp even and unlabored, call rodriguez in reach. handoff given to neetu asif
[2023-12-17] MEDS: Lactated Ringers 1,000 ML 100 ML IVCONT ×2 (04:21→14:19)
[2023-12-17 05:16] VITALS: BP 141/87; PULSE 78; RESP 17; TEMP 36.7; O2SAT 97
[2023-12-17 05:25] LABS: PLT CLUMP 1
[2023-12-17 05:26] LABS: Hematocrit 39.6 % (42.0-52.0); Hemoglobin 13.9 g/dl (14.0-18.0); Mean Corpuscular HGB Conc 35.1 g/dl (31.0-36.0); Mean Corpuscular Hemoglobin 36.1 pg (27.0-33.0); Mean Corpuscular Volume 102.9 fL (80.0-98.0); Mean Platelet Volume 10.6 fL (9.4-12.4); Red Blood Count 3.85 X10*6/uL (4.60-5.80); Red Cell Distribution Width 12.1 % (11.0-16.0)
[2023-12-17 05:31] LABS: Platelet Count 133 X10*3/uL (160-400); White Blood Count 4.8 X10*3/uL (4.8-10.8)
[2023-12-17 05:33] LABS: Prothrombin Time 11.1 SEC (10.9-12.4)
[2023-12-17 05:51] LABS: Alanine Aminotransferase 103 U/L (0-40); Alkaline Phosphatase 91 U/L (39-117); Anion Gap 15 (12-20); Aspartate Amino Transferase 198 U/L (5-37); Bilirubin Total 2.2 mg/dL (0.0-1.0); Blood Urea Nitrogen 5 mg/dL (9-16); Calcium 9.8 mg/dL (8.4-10.2); Carbon Dioxide 31 mmol/L (22-29); Chloride 98 mmol/L (96-108); Creatinine Clr Calc Pharmacy 102.9; Estimated Glomerular Filt Rate > 60; Glucose Random 88 mg/dL (60-115); Magnesium 1.7 mg/dL (1.6-2.6); Potassium 3.4 mmol/L (3.3-5.1); Sodium 141 mmol/L (135-145)
[2023-12-17 06:25] LABS: Folate 6.6 ng/mL (> or = 4.0); Vitamin B12 526 pg/mL (200-900)
--- NOTE | 2023-12-17 07:45 | P.PNIM_ITS ---
Subjective Subjective Date of Service: 12/17/23 Interval History: Seen in follow-up for acute alcohol withdrawal Interval history: Reports still feeling shaky with nausea but no vomiting. He is also experiencing diarrhea that is nonbloody. Also reporting headaches and anxiety. No confusion or hallucinations. Vital signs are stable. Review of Systems Review of Systems: Yes all other systems are reviewed and are negative Physical Exam 2 Vital Signs: Vital Signs: Last Vital Signs Temp 98.1 F 12/17/23 05:16 Pulse 78 12/17/23 05:16 Resp 17 12/17/23 05:16 BP 141/87 H 12/17/23 05:16 Pulse Ox 97 12/17/23 05:16 O2 Del Method Room Air 12/17/23 05:16 BMI result Body Mass Index 22.5 Constitutional - Awake and Alert, No apparent distress Eyes - PERRLA, EOMI Cardiovascular - S1S2, RRR, No edema Respiratory - Normal lung expansion, Normal respiratory effort, No respiratory distress, CTA bilaterally Gastrointestinal - NT / ND; +BS; No rebound or guarding Extremities - no calf tenderness bilaterally, no swelling Skin - Warm/Dry Neurological - Alert & oriented x3, mildly tremulous with outstretched hands Psychological - Appropriate affect Objective Data Active Medications Acetaminophen (Acetaminophen 325 Mg Tablet) 650 mg PO Q6H PRN PRN Reason: Pain, Mild (Pain Scale 1-3), fever or headache Last Admin: 12/16/23 20:34 Dose: 650 mg Documented By: ZOHREH Albuterol Sulfate (Albuterol Sulfate (0.083%) 2.5 Mg/3 Ml Vial.Neb) 2.5 mg INHALE Q4H PRN PRN Reason: Wheezing Buprenorphine/Naloxone (Buprenorphine/Naloxone 8/2 Mg Film) 1 film SUBLINGUAL DAILY [facility] Last Admin: 12/16/23 11:53 Dose: 1 film Documented By: TIMOTHY Buprenorphine/Naloxone (Buprenorphine/Naloxone 8/2 Mg Film) 1 film SUBLINGUAL DAILY@1700 [facility] Last Admin: 12/16/23 16:15 Dose: Not Given Documented By: TIMOTHY Non-Admin Reason: Previously Administered Comments: patient took dose prior to arrival in waiting room Buprenorphine/Naloxone (Buprenorphine/Naloxone 8/2 Mg Film) 0.5 film SUBLINGUAL BEDTIME [facility] Last Admin: 12/16/23 20:27 Dose: 0.5 film Documented By: ZOHREH Calcium Carbonate (Calcium Carbonate 750 Mg Tab.Chew) 750 mg PO Q4H PRN PRN Reason: Heartburn Last Admin: 12/16/23 20:35 Dose: 750 mg Documented By: ZOHREH Enoxaparin Sodium (Enoxaparin Sodium 40 Mg/0.4 Ml Syringe) 40 mg SUBCUT Q24H [facility] Last Admin: 12/16/23 09:22 Dose: 40 mg Documented By: TIMOTHY Folic Acid (Folic Acid 1 Mg Tablet) 1 mg PO DAILY [facility] Last Admin: 12/16/23 09:19 Dose: 1 mg Documented By: TIMOTHY Lactated Ringer's (Lr) 1,000 mls @ 100 mls/hr IVCONT .Q10H [facility] Last Admin: 12/17/23 04:21 Dose: 100 mls/hr Documented By: SOY Thiamine HCl 100 mg/ Sodium (Chloride) 101 mls @ 202 mls/hr IV BID [facility] Last Infusion: 12/16/23 22:55 Dose: Infused Documented By: ZOHREH Magnesium Hydroxide (Milk Of Magnesia 30 Ml Oral.Susp) 30 ml PO DAILY PRN PRN Reason: Constipation Melatonin (Melatonin 3 Mg Tablet) 6 mg PO BEDTIME PRN PRN Reason: Insomnia Last Admin: 12/16/23 20:34 Dose: 6 mg Documented By: ZOHREH Non-Formulary Medication (Umeclidinium-Vilanterol [Anoro Ellipta]) 1 each INHALE DAILY [facility] Ondansetron HCl (Ondansetron Hcl 4 Mg/2 Ml Vial) 4 mg IVPUSH Q4H PRN PRN Reason: Nausea and Vomiting Last Admin: 12/16/23 16:14 Dose: 4 mg Documented By: TIMOTHY Pharmacy Consult (Consult Rx Etoh Phenob Im/Po) 1 each MISCELLANE ONCE PRN; Protocol PRN Reason: Consult order Phenobarbital 30 mg/ (Phenobarbital 15 mg) 45 mg PO BID [facility] Stop: 12/17/23 21:01 Last Admin: 12/16/23 20:25 Dose: 45 mg Documented By: ZOHREH Phenobarbital (Phenobarbital 15 Mg Tablet) 15 mg PO BID [facility] Stop: 12/19/23 21:01 Phenobarbital (Phenobarbital 15 Mg Tablet) 15 mg PO QD [facility] Stop: 12/21/23 09:01 Sodium Chloride (0.9 % Sodium Chloride Flush 3 Ml Syringe) 3 ml IVFLUSH QSHIFT [facility] Last Admin: 12/17/23 01:05 Dose: Not Given Documented By: SOY Non-Admin Reason: IV Running Labs 12/17/23 04:29 12/17/23 04:29 Labs: Laboratory Results - last 24 hr 12/16/23 12/17/23 08:14 04:29 MCV 102.9 H MCH 36.1 H MCHC 35.1 RDW 12.1 Plt Count 133 L MPV 10.6 Absolute Nucleated RBC 0.000 Nucleated RBC % (auto) 0.0 PT 11.1 INR 1.0 Anion Gap 15 Estim Creat Clear Calc 102.9 Estimated GFR > 60 Random Glucose 88 Calcium 9.8 Magnesium 1.7 Total Bilirubin 2.2 H AST 198 H ALT 103 H Alkaline Phosphatase 91 Total Protein 7.0 Albumin 4.0 Vitamin B12 526 Folate 6.6 Urine Opiates Screen Not Detected Ur Buprenorphine Scrn Positive H Ur Oxycodone Screen Not Detected Urine Methadone Screen Not Detected Urine Fentanyl Screen Not Detected Ur Barbiturates Screen POSITIVE H Ur Phencyclidine Scrn Not Detected Ur Amphetamines Screen Not Detected U Benzodiazepines Scrn Not Detected Urine Cocaine Screen Not Detected U Marijuana (THC) Screen POSITIVE H Assessment and Plan (1) Alcohol withdrawal: Status: Acute Plan 52yo M with AUD with hx of withdrawal, OUD on Suboxone, HCV with failed prior treatment, and traumatic L AKA presenting with acute alcohol withdrawal #acute alcohol withdrawal -Monitor on CIWA q.4h -continue phenobarbital per protocol IM--> PO -IV thiamine, folic acid. Thiamine level pending. Folic acid within normal limits -addiction medicine consult, sobriety counseling -admit to telemetry #alcoholic ketoacidosis -resolved, discontinue IV fluids #alcoholic hepatitis -Maddrey discriminant function 2.7, steroids not indicated -follow LFTs #HCV -suspect most of the hepatitis is due to EtOH rather than HCV, though, but hep C viral load pending #OUD -continue Suboxone # chronic macrocytic anemia -above transfusion threshold -vitamin B12 and folic acid level pending VTE prophylaxis - enoxaparin dispo - home vs residential program eventually code status - full Patient requires ongoing inpatient stay due to acute alcohol withdrawal, remains symptomatic requiring phenobarbital per protocol Quality Stroke Does the patient have a stroke diagnosis?: No VTE Prior VTE?: No VTE Risk Level:: Medical - moderate - high VTE Device Contraindication: N/A - Device Ordered VTE Drug Contraindication: N/A - Med Ordered
[2023-12-17 08:01] VITALS: BP 139/94; PULSE 87; RESP 17; TEMP 36.9; O2SAT 97
[2023-12-17] MEDS: PHENobarbitaL 30 MG, PHENobarbitaL 15 MG 45 MG PO ×2 (08:22→20:27)
[2023-12-17] MEDS: Folic Acid 1 MG TABLET PO (08:22)
[2023-12-17] MEDS: Thiamine HCL 100 MG in 0.9 % Sodium Chloride 100 ML 202 MG IV ×2 (08:23→19:37)
[2023-12-17] MEDS: Enoxaparin Sodium 40 MG/0.4 ML SYRINGE SUBCUT (08:23)
[2023-12-17] MEDS: Buprenorphine/Naloxone 8/2 mg FILM 1 FILM SUBLINGUAL ×2 (08:27→16:35)
[2023-12-17 11:39] VITALS: BP 136/86; PULSE 84; RESP 14; O2SAT 97
--- NOTE | 2023-12-17 15:09 | MHC.CM.PN ---
IMM 12/17/23, pt lives with a roommate, he does not have home health services, for DME: prosthetic leg, nebulizer. He does not have a PCP. He goes to [facility] for suboxone, and said he recently connected with someone there that will assist him in getting a PCP, and rides to medical appts. He did not have the info with him, but does have it at home. HCP on file and confirmed: [facility], his dtr. He can arrange a ride home at [place]. He said that he plans to attend a program for alcoholism with his cousin's girlfriend, that she attends. DCP: home, self care. CM to follow and assist with DC plan.
--- NOTE | 2023-12-17 15:22 | MHC.RECOVRN ---
?AUDIT-C?Brief Intervention Pt had positive screen for unhealthy alcohol use on admission, subsequently met with t/w to discuss alcohol use and recovery supports/options. Pt voices concern regarding alcohol use and is aware that drinking at unhealthy levels is known to increase risk of alcohol related health problems. Pt reports 1- 1 1/2 liters of vodka a day. Pt expresses how alcohol use has impacted health, including negative impact on daily living, states he has to drink to feel normal . Discussed risk reduction strategies including drinking below the recommended limit. Provided pt with written resources including information on inpatient and outpatient treatment, CECILY, harm reduction, and recovery coaching. Pt plans to continue care with [facility] where he recieves resources and OTP from. Pt provided with t/w contact information if questions or concerns arise. Denies other questions or concerns at this time.? Patient did acknowledge he is interested in our team visiting him once again during admission.
[2023-12-17 15:31] VITALS: BP 145/91; PULSE 86; RESP 18; TEMP 36.7; O2SAT 96
--- NOTE | 2023-12-17 15:34 | PC.NURSE ---
vss and up to date. nsr on the residential instructor. pt updated CIWA = 12. beads of sweat on forehead. pt seemingly diaphoretic/tremulous. pt also c/0 5/10 GALAN as well as visual hallucinations when attempting to fall asleep. pt states that sx wake him up and he is having difficulty falling asleep/staying asleep. pt otherwise resting in no apparent distress. waiting for bed assignment at this time. no sob/wob noted. respirations even/unlabored. plan of care ongoing. call rodriguez placed within reach.
[2023-12-17] MEDS: PHENobarbitaL sodium 130 MG/ML VIAL IM (16:35)
--- NOTE | 2023-12-17 16:38 | PC.NURSE ---
additional dose of phenobarb via IM administered at this time per admitting provider order d/t most recent CIWA scale results. effectiveness pending.
[2023-12-17 18:52] VITALS: BMI 22.9
[2023-12-17] MEDS: ondansetron HCL 4 MG/2 ML VIAL IVPUSH (19:37)
[2023-12-17] MEDS: Flu Vacc TS2024-25(6mos up)/PF 0.5 ML SYRINGE IM (19:39)
[2023-12-17] MEDS: 0.9 % Sodium Chloride Flush 3 ML SYRINGE IVFLUSH (19:41)
[2023-12-17 20:00] VITALS: BP 141/90; PULSE 98; RESP 18; TEMP 36.9; O2SAT 98
[2023-12-17] MEDS: Benzonatate 100 MG CAPSULE 200 MG PO (20:27)
[2023-12-17] MEDS: Melatonin 3 MG TABLET 6 MG PO (20:27)
[2023-12-17] MEDS: Buprenorphine/Naloxone 8/2 mg FILM 0.5 FILM SUBLINGUAL (20:30)
--- NOTE | 2023-12-17 21:48 | PC.NURSE ---
Pt refusing bed alarm, yellow socks and high fall bracelet. Educated pt to use call rodriguez for assistance if needed.
[2023-12-18] VITALS: BP 140/87; PULSE 80; RESP 18; TEMP 36.9; O2SAT 97
[2023-12-18 03:27] VITALS: BP 136/84; PULSE 83; RESP 18; TEMP 36.6; O2SAT 97
[2023-12-18 06:02] LABS: Alanine Aminotransferase 86 U/L (0-40); Albumin Level 4.1 g/dL (3.5-5.0); Alkaline Phosphatase 90 U/L (39-117); Anion Gap 17 (12-20); Aspartate Amino Transferase 143 U/L (5-37); Bilirubin Direct 0.8 mg/dL (0.0-0.5); Bilirubin Total 1.6 mg/dL (0.0-1.0); Blood Urea Nitrogen 7 mg/dL (9-16); Calcium 9.9 mg/dL (8.4-10.2); Carbon Dioxide 28 mmol/L (22-29); Chloride 96 mmol/L (96-108); Estimated Glomerular Filt Rate > 60; Glucose Random 83 mg/dL (60-115); Potassium 3.7 mmol/L (3.3-5.1); Sodium 137 mmol/L (135-145); Total Protein 7.3 g/dL (6.5-8.0)
[2023-12-18 07:18] VITALS: BP 131/85; PULSE 87; RESP 18; TEMP 37.2; O2SAT 94
[2023-12-18] MEDS: ondansetron HCL 4 MG/2 ML VIAL IVPUSH (07:38)
[2023-12-18] MEDS: Enoxaparin Sodium 40 MG/0.4 ML SYRINGE SUBCUT (07:38)
[2023-12-18] MEDS: Buprenorphine/Naloxone 8/2 mg FILM 1 FILM SUBLINGUAL ×2 (08:29→16:48)
[2023-12-18] MEDS: Folic Acid 1 MG TABLET PO (08:30)
[2023-12-18] MEDS: Thiamine HCL 100 MG in 0.9 % Sodium Chloride 100 ML 202 MG IV ×2 (08:30→19:53)
[2023-12-18] MEDS: PHENobarbitaL 15 MG TABLET PO ×2 (08:30→19:53)
[2023-12-18] MEDS: 0.9 % Sodium Chloride Flush 3 ML SYRINGE IVFLUSH ×3 (08:31→19:54)
[2023-12-18] MEDS: Nicotine 21 MG PATCH.TD24 TRANSDERMA (10:23)
[2023-12-18 11:29] VITALS: BP 132/82; PULSE 70; RESP 18; TEMP 36.4; O2SAT 97
--- NOTE | 2023-12-18 13:10 | HO.PM.IMPN ---
Subjective Subjective Date of Service: 12/18/23 Interval History: alcohol withdrawals Review of Systems has tremers has cough no fevers Physical Exam Vital Signs: Vital Signs: Last Vital Signs Temp 97.5 F 12/18/23 11:29 Pulse 70 12/18/23 11:29 Resp 18 12/18/23 11:29 BP 132/82 12/18/23 11:29 Pulse Ox 97 12/18/23 11:29 O2 Del Method Room Air 12/18/23 11:29 BMI result Body Mass Index 22.9 Appearance: Alert.? Oriented X3.?tremers cvs: rrr, [id number]. res: air entry fair ,no rales or wheezing abd: no rebound or guarding ,nt, bs present. ext pulses present , no cyanosis . neuro: axo3 , nonfocal. Objective Data Active Medications Acetaminophen (Acetaminophen 325 Mg Tablet) 650 mg PO Q6H PRN PRN Reason: Pain, Mild (Pain Scale 1-3), fever or headache Last Admin: 12/16/23 20:34 Dose: 650 mg Documented By: ZOHREH Albuterol Sulfate (Albuterol Sulfate (0.083%) 2.5 Mg/3 Ml Vial.Neb) 2.5 mg INHALE Q4H PRN PRN Reason: Wheezing Benzonatate (Benzonatate 100 Mg Capsule) 200 mg PO TID PRN PRN Reason: Cough Last Admin: 12/17/23 20:27 Dose: 200 mg Documented By: LEOBARDO Buprenorphine/Naloxone (Buprenorphine/Naloxone 8/2 Mg Film) 1 film SUBLINGUAL DAILY [facility] Last Admin: 12/18/23 08:29 Dose: 1 film Documented By: MICHI Buprenorphine/Naloxone (Buprenorphine/Naloxone 8/2 Mg Film) 1 film SUBLINGUAL DAILY@1700 [facility] Last Admin: 12/17/23 16:35 Dose: 1 film Documented By: CIARA Buprenorphine/Naloxone (Buprenorphine/Naloxone 8/2 Mg Film) 0.5 film SUBLINGUAL BEDTIME [facility] Last Admin: 12/17/23 20:30 Dose: 0.5 film Documented By: LEOBARDO Calcium Carbonate (Calcium Carbonate 750 Mg Tab.Chew) 750 mg PO Q4H PRN PRN Reason: Heartburn Last Admin: 12/16/23 20:35 Dose: 750 mg Documented By: ZOHREH Enoxaparin Sodium (Enoxaparin Sodium 40 Mg/0.4 Ml Syringe) 40 mg SUBCUT Q24H [facility] Last Admin: 12/18/23 07:38 Dose: 40 mg Documented By: MICHI Folic Acid (Folic Acid 1 Mg Tablet) 1 mg PO DAILY [facility] Last Admin: 12/18/23 08:30 Dose: 1 mg Documented By: MICHI Guaifenesin/Codeine Phosphate (Guaifen/Codeine Sf 200/20/10ml 10 Ml Liquid) 10 ml PO Q4H PRN PRN Reason: Cough Thiamine HCl 100 mg/ Sodium (Chloride) 101 mls @ 202 mls/hr IV BID [facility] Last Infusion: 12/18/23 09:00 Dose: Infused Documented By: MICHI Loratadine (Loratadine 10 Mg Tablet) 10 mg PO DAILY [facility] Magnesium Hydroxide (Milk Of Magnesia 30 Ml Oral.Susp) 30 ml PO DAILY PRN PRN Reason: Constipation Melatonin (Melatonin 3 Mg Tablet) 6 mg PO BEDTIME PRN PRN Reason: Insomnia Last Admin: 12/17/23 20:27 Dose: 6 mg Documented By: LEOBARDO Nicotine (Nicotine 21 Mg Patch.Td24) 21 mg TRANSDERMA DAILY [facility] Last Admin: 12/18/23 10:23 Dose: 21 mg Documented By: MICHI Non-Formulary Medication (Umeclidinium-Vilanterol [Anoro Ellipta]) 1 each INHALE RDAILY [facility] Last Admin: 12/18/23 09:18 Dose: 1 each Documented By: MICHI Ondansetron HCl (Ondansetron Hcl 4 Mg/2 Ml Vial) 4 mg IVPUSH Q4H PRN PRN Reason: Nausea and Vomiting Last Admin: 12/18/23 07:38 Dose: 4 mg Documented By: MICHI Pharmacy Consult (Consult Rx Etoh Phenob Im/Po) 1 each MISCELLANE ONCE PRN; Protocol PRN Reason: Consult order Phenobarbital (Phenobarbital 15 Mg Tablet) 15 mg PO BID [facility] Stop: 12/19/23 21:01 Last Admin: 12/18/23 08:30 Dose: 15 mg Documented By: MICHI Phenobarbital (Phenobarbital 15 Mg Tablet) 15 mg PO QD [facility] Stop: 12/21/23 09:01 Sodium Chloride (0.9 % Sodium Chloride Flush 3 Ml Syringe) 3 ml IVFLUSH QSHIFT [facility] Last Admin: 12/18/23 08:31 Dose: 3 ml Documented By: MICHI Labs 12/17/23 04:29 12/18/23 05:15 Labs: Laboratory Results - last 24 hr 12/18/23 05:15 Anion Gap 17 Estim Creat Clear Calc 97.0 Estimated GFR > 60 Random Glucose 83 Calcium 9.9 Total Bilirubin 1.6 H Direct Bilirubin 0.8 H AST 143 H ALT 86 H Alkaline Phosphatase 90 Total Protein 7.3 Albumin 4.1 Assessment and Plan (1) Alcohol withdrawal: Status: Acute Plan 52yo M with AUD with hx of withdrawal, OUD on Suboxone, HCV with failed prior treatment, and traumatic L AKA presenting with acute alcohol withdrawal acute alcohol withdrawal Monitor on CIWA q.4h continue phenobarbital per protocol IM--> PO IV thiamine, folic acid. Thiamine level pending. Folic acid within normal limits addiction medicine consult, sobriety counseling alcoholic ketoacidosis-resolved, discontinue IV fluids alcoholic hepatitis-Gerdaey discriminant function 2.7, steroids not indicated follow LFTs HCV-suspect most of the hepatitis is due to EtOH rather than HCV, though, but hep C viral load pending OUD-continue Suboxone chronic macrocytic anemia-above transfusion threshold. vitamin B12 and folic acid level pending VTE prophylaxis enoxaparin dispo- home vs residential program eventually Patient requires ongoing inpatient stay due to acute alcohol withdrawal, remains symptomatic requiring phenobarbital per protocol Quality Stroke Does the patient have a stroke diagnosis?: No VTE Prior VTE?: No VTE Risk Level:: Medical - moderate - high VTE Device Contraindication: N/A - Device Ordered VTE Drug Contraindication: N/A - Med Ordered
[2023-12-18 15:28] LABS: HCV Log PCR 4.01 Log IU/mL (NOT DETECTED); HepC Viral Load 10300 IU/mL (NOT DETECTED)
[2023-12-18 15:32] VITALS: BP 152/92; PULSE 97; RESP 16; TEMP 36.6; O2SAT 92
[2023-12-18 19:28] VITALS: BP 140/93; PULSE 92; RESP 18; TEMP 36.9; O2SAT 98
[2023-12-18] MEDS: Benzonatate 100 MG CAPSULE 200 MG PO (19:53)
[2023-12-18] MEDS: Melatonin 3 MG TABLET 6 MG PO (19:53)
[2023-12-18] MEDS: Buprenorphine/Naloxone 8/2 mg FILM 0.5 FILM SUBLINGUAL (20:30)
[2023-12-19 03:33] VITALS: BP 130/80; PULSE 75; RESP 18; TEMP 36.9; O2SAT 99
[2023-12-19 07:39] VITALS: BP 121/92; PULSE 80; RESP 16; TEMP 36.6; O2SAT 96
[2023-12-19 08:09] VITALS: PULSE 78; RESP 17; O2SAT 96
[2023-12-19] MEDS: 0.9 % Sodium Chloride Flush 3 ML SYRINGE IVFLUSH (08:25)
[2023-12-19] MEDS: Buprenorphine/Naloxone 8/2 mg FILM 1 FILM SUBLINGUAL (08:26)
[2023-12-19] MEDS: Loratadine 10 MG TABLET PO (08:26)
[2023-12-19] MEDS: Folic Acid 1 MG TABLET PO (08:26)
[2023-12-19] MEDS: Enoxaparin Sodium 40 MG/0.4 ML SYRINGE SUBCUT (08:26)
[2023-12-19] MEDS: Nicotine 21 MG PATCH.TD24 TRANSDERMA (08:26)
[2023-12-19] MEDS: PHENobarbitaL 15 MG TABLET PO (08:26)
[2023-12-19] MEDS: Thiamine HCL 100 MG in 0.9 % Sodium Chloride 100 ML 202 MG IV (08:26)
--- NOTE | 2023-12-19 10:01 | P.DS_ITS ---
DS: Providers Provider Date of Service: 12/19/23 Date of admission: 12/16/23 08:29 Date of discharge: 12/19/23 Primary care physician: None Physician Consults: 12/16/23 08:17 Addiction Medicine Routine Consulting Provider: Addiction Covering Reason for consultation: etoh 12/17/23 19:07 Addiction Medicine Routine Consulting Provider: Addiction Covering Reason for consultation: alcohol Attending physician on discharge: Marie Dailey Discharging clinician: Marie Dailey DS: Diagnosis Discharge Diagnosis (1) Alcohol withdrawal: Status: Acute DS: Summary Hospital Course Hospital Course: Date of service and discharge:12/19/23. 52yo M with hx of traumatic L AKA, AUD, OUD on Suboxone, and HCV [unsuccessfully treated], last sober in January 2023 during his last hospitalization for alcohol withdrawal, drinking about a liter of vodka a day with 25 lb weight loss over the last 2 months due to poor PO intake. He has actually increased EtOH intake lately and came to the ED yesterday because he was worried about drinking so much. He was seen by the Recovery Team and discharged home with outpatient resources but while in the waiting room, he became extremely tremulous and was found to be hypertensive and tachycardic. He has a significant transaminasemia with AST 252 > ALT 123. Tbili 1.8. Anion gap 23, bicarbonate 21; serum ethanol 103. He denies abdominal pain. He was started on phenobarbital IM->PO taper. Hospital course: Patient was admitted for alcohol withdrawal started on phenobarb protocol, also has mild elevated LFTs which is improving(could be more likely with alcohol use, viral load is elevated for hepatitis-C also.). Alcoholic ketoacidosis seems to be improved with fluids. Chronic microcytic anemia-H&H stable around 13.9/39.6. B12 and folate levels are normal. May be alcohol use contributing. Patient was strongly advised to abstain from alcohol. Patient was advised to follow-up with LFT and CBC in 1 week, follow-up with GI outpatient for treatment of hepatitis-C. Above management discussed with the patient detail length he understand in agreement with the above plan, also told him to follow-up with GI outpatient. Assessment plan coordination time spent 40 minute. Patient understand and in agreement with the above plan. Time Attestation Total time managing care of this patient today: 40 mintues. Discharge Coordination Time (in mins): 40 min Quality: Safe Use of Opioids Does Pt have an Active Cancer Diagnosis on the Problem List?: No Quality: Stroke Does the patient have a stroke diagnosis?: No Physical Exam Vital Signs: Vital Signs: Last Vital Signs Temp 97.9 F 12/19/23 07:39 Pulse 78 12/19/23 08:09 Resp 17 12/19/23 08:09 BP 121/92 H 12/19/23 07:39 Pulse Ox 96 12/19/23 07:39 O2 Del Method Room Air 12/19/23 07:39 BMI result Body Mass Index 22.9 Appearance: Alert.? Oriented X3.?tremers cvs: rrr, [id number]. res: air entry fair ,no rales or wheezing abd: no rebound or guarding ,nt, bs present. ext pulses present , no cyanosis . neuro: axo3 , nonfocal. DS: Data Data Completed and Pending Completed studies during hospitalization [Text1]: Procedures Detoxification Services for Substance Abuse Treatment (01/19/23) Labs on day of discharge: Laboratory Results - last 24 hr 12/17/23 04:29 Hep C Viral Load 07230 H Hep C Viral Load Log 4.01 H Discharge Plan Discharge Anticipated Discharge Date/Time: 12/19/23 09:50 Patient Disposition: Home, Self-Care Discharge Diagnosis: alcohol withdrawal, hepatitis C serology/viral load positive Referrals: Tracie Cueto MD [Physician] - 1 Week Physician,None [Primary Care Provider] - 1 Week Discharge Medications: New benzonatate 100 mg Capsule 200 mg PO TID PRN (Reason: Cough) Qty: 20 0RF folic acid 1 mg Tablet 1 mg PO DAILY Qty: 30 0RF Continued albuterol sulfate 2.5 mg /3 mL (0.083 %) solution for nebulization 2.5 mg inhalation Q4H PRN (Reason: Wheezing) ondansetron HCl 4 mg tablet 4 mg PO BID PRN (Reason: nausea) albuterol sulfate 90 mcg/actuation HFA aerosol inhaler 2 puff inhalation Q4H PRN (Reason: Shortness Of Breath Or Wheezing) buprenorphine-naloxone 8-2 mg film 1 film sublingual DAILY buprenorphine-naloxone 8-2 mg film 1 film sublingual DAILY@1700 buprenorphine-naloxone 8-2 mg film 0.5 film sublingual BEDTIME Anoro Ellipta 62.5-25 mcg/actuation blister with device 1 ea INHALATION DAILY Discharge Orders: Discharge Order (Routine); Ordered 12/19/23 Ordered By: Marie Dailey Diet: Advance to usual diet Activity on Discharge: As tolerated Stand Alone Forms: Patient Portal Discharge page Print Language: Martiniquais Care Plan Goals: Patient was admitted for alcohol withdrawal started on phenobarb protocol, also has mild elevated LFTs which is improving(could be more likely with alcohol use, viral load is elevated for hepatitis-C also.). Alcoholic ketoacidosis seems to be improved with fluids. Chronic microcytic anemia-H&H stable around 13.9/39.6. B12 and folate levels are normal. May be alcohol use contributing. Patient was strongly advised to abstain from alcohol. Patient was advised to follow-up with LFT and CBC in 1 week, follow-up with GI outpatient for treatment of hepatitis-C. Health Concerns: As above. Plan of Treatment: As above. Assessment: As above. Discharge Date/Time: 12/19/23 10:44
--- NOTE | 2023-12-19 10:27 | MHC.CM.PN ---
DP: PT HAS BEEN MEDICALLY CLEARED FOR DC HOME, NO SERVICES. PT HAS OWN RIDE HOME.
--- NOTE | 2023-12-19 14:09 | MHC.RECOVRN ---
Met with pt prior to discharge to check in and provide support. Pt awake, alert, easily engages in conversation, ready to go home. Pt reports he plans to attend AA with his cousin upon discharge. Pt also reports he receives services through [facility] in [place] and they provide many supports for him. Pt denies questions or concerns for t/w.
[2023-12-24 06:29] LABS: Vitamin B1 205 nmol/L (8-30)
== END 2023-12-19 10:44 | disposition home or self-care (01) | DRG 897 ==
LOC: HO.ED 07:44 → HO.EDOVER 08:30 → HO.IMC 12-17 17:22 → HO.S3 12-17 17:47
PROVIDERS: Physician Assistant; Admitting Provider Family Medicine; Emergency Provider Emergency Medicine; Visit Provider Internal Medicine
DX: F10.239 Alcohol dependence with withdrawal, unspecified (principal); F11.20 Opioid dependence, uncomplicated; E87.29 Other acidosis; F17.210 Nicotine dependence, cigarettes, uncomplicated; K70.10 Alcoholic hepatitis without ascites; B19.20 Unspecified viral hepatitis C without hepatic coma; D53.9 Nutritional anemia, unspecified; Y90.5 Blood alcohol level of 100-119 mg/100 ml; Z23 Encounter for immunization; Z71.6 Tobacco abuse counseling; Z79.899 Other long term (current) drug therapy
CPT/HCPCS: 36415; 80048; 80053; 80076; 80307; 82248; 82607; 82746; 83690; 83735; 84425; 85025; 85027; 85610; 87522; 90656; 94640; 99285; J1650; J2405; J2560; J3411; J7120

== ENCOUNTER → 2023-12-16 08:29 | Outpatient (BNV) | payer OTHER, SELFPAY | PROVIDERS: Admitting Provider Family Medicine; Emergency Provider Emergency Medicine; Visit Provider Family Medicine | DX: F10.939 Alcohol use, unspecified with withdrawal, unspecified (principal) | CPT/HCPCS: 99223; 99231; 99232; 99239 ==

== ENCOUNTER 2024-08-08 10:14 | Outpatient (AMB) | payer OTHER, SELFPAY ==
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
== END 2024-08-08 10:30 | disposition home or self-care (01) ==
LOC: HO.HPS 10:15
PROVIDERS: PCP Internal Medicine; Referring Provider Internal Medicine; Visit Provider Physician Assistant Medical
DX: F17.210 Nicotine dependence, cigarettes, uncomplicated (principal)
CPT/HCPCS: G0296

== ENCOUNTER 2024-08-08 10:34 | Outpatient (REF) | payer OTHER, SELFPAY ==
--- NOTE | ~2024-08-08 | CT_ITS ---
EXAMINATION: CT LOW-DOSE SCREENING CHEST WITHOUT CONTRAST CLINICAL INFORMATION: 53-year-old male, current smoker, 45 pack years, lung cancer screening. COMPARISON: Chest CT 06/05/2022. TECHNIQUE: Multidetector volumetric CT imaging of the chest is performed on a Siemens SOMATOM Definition scanner without contrast using low dose technique. Additional 2D coronal and sagittal reformatted images and axial 3D maximum intensity projection (MIP) images are generated on the CT workstation. This CT examination was performed using dose optimization techniques as appropriate, variously including the following: *Automated exposure control *Adjustment of mA and/or kV according to patient size (this includes techniques or standardized protocols for targeted exams where dose is matched to indication/reason for exam; i.e. extremities or head) *Use of iterative reconstruction technique FINDINGS: PULMONARY NODULES: -There are are a few scattered tiny calcified granulomata present, unchanged. These are benign. -There are no suspicious pulmonary nodules. LUNGS: -Lungs are well-expanded and clear bilaterally. Mild centrilobular emphysema with upper lobe predominance. -No effusions or pneumothorax. -No abnormal opacities or interstitial abnormalities. -Small airways appear normal. -No central airway abnormality. MEDIASTINUM: -There is a normal thyroid. -There is no abnormal mediastinal mass or lymphadenopathy. -There is a normal caliber aorta without aneurysm. There is minimal atheromatous calcification. -There is a normal caliber main pulmonary artery. -Heart size is normal. There is no pericardial effusion. The esophagus is normal. CORONARY ARTERY CALCIFICATION: Mild three-vessel calcifications. CHEST WALL/AXILLA: No masses or abnormal lymph nodes. Normal. UPPER ABDOMEN: Included portions of the solid organs in the upper abdomen unremarkable on noncontrast imaging. OSSEOUS STRUCTURES: No suspicious lytic or blastic bone lesions. CT/CT lung screening IMPRESSION: 1. There are no suspicious pulmonary nodules. 2. There are a few scattered calcified granulomata, unchanged and benign. 3. Mild centrilobular emphysema. The lungs are clear. No active pulmonary disease. ASSESSMENT: 1. Lung-RADS Category 1: Negative. There are no nodules or there are definitely benign nodules. 2. Lung-RADS Category S: None. RECOMMENDATION: Continued routine annual low-dose CT lung screening in 1 year is recommended. An order for CT CHEST LOW DOSE CANCER SCREENING ([id number]) can be placed. Electronically signed by: Evan Carpenter MD 08/08/2024 11:16 AM EDT RP
== END 2024-08-08 10:35 | disposition home or self-care (01) ==
LOC: HO.CT 10:34
PROVIDERS: Visit Provider Physician Assistant Medical
DX: Z12.2 Encounter for screening for malignant neoplasm of respiratory organs (principal); F17.210 Nicotine dependence, cigarettes, uncomplicated
CPT/HCPCS: 71271

== ENCOUNTER → 2024-08-08 10:42 | Outpatient (BNV) | payer OTHER, SELFPAY | PROVIDERS: Visit Provider Radiology Diagnostic Radiology | DX: F17.210 Nicotine dependence, cigarettes, uncomplicated (principal) | CPT/HCPCS: 71271 ==

== ENCOUNTER 2024-08-21 07:06 | Emergency (ER) | payer OTHER, SELFPAY ==
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
[2024-08-21 07:17] VITALS: BP 140/76; PULSE 99; RESP 20; TEMP 36.9; O2SAT 94; BMI 21.8
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
[2024-08-21] MEDS: Ibuprofen 600 MG TABLET PO (08:24)
[2024-08-21] MEDS: Acetaminophen 325 MG TABLET 975 MG PO (08:24)
[2024-08-21 09:14] VITALS: BP 138/82; PULSE 71; RESP 16; TEMP 36.8; O2SAT 96
[2024-08-21 09:20] VITALS: BP 138/82; PULSE 71; RESP 16; TEMP 36.8; O2SAT 96
== END 2024-08-21 09:20 | disposition home or self-care (01) ==
PROVIDERS: Emergency Provider Emergency Medicine
DX: S40.811A Abrasion of right upper arm, initial encounter (principal); S43.402A Unspecified sprain of left shoulder joint, initial encounter; F17.210 Nicotine dependence, cigarettes, uncomplicated; V23.49XA Other motorcycle driver injured in collision with car, pick-up truck or van in traffic accident, initial encounter; Y93.9 Activity, unspecified; Y92.410 Unspecified street and highway as the place of occurrence of the external cause; Y99.8 Other external cause status
CPT/HCPCS: 73030; 99283

== ENCOUNTER → 2024-08-21 07:55 | Outpatient (BNV) | payer OTHER, SELFPAY | PROVIDERS: Emergency Provider Emergency Medicine; Visit Provider Radiology Diagnostic Radiology | DX: M25.512 Pain in left shoulder (principal) | CPT/HCPCS: 73030 ==

== ENCOUNTER → 2024-09-10 22:01 | Outpatient (BNV) | payer OTHER, SELFPAY | PROVIDERS: Emergency Provider Emergency Medicine; Visit Provider Student in an Organized Health Care Education/Training Program | DX: R06.00 Dyspnea, unspecified (principal) | CPT/HCPCS: 71045 ==

== ENCOUNTER 2024-09-10 22:19 | Inpatient (IN) | payer OTHER, SELFPAY ==
--- NOTE | 2024-09-10 | ECG_ITS ---
Test Reason : CHEST PAIN Blood Pressure : */* mmHG Vent. Rate : 83 BPM Atrial Rate : 83 BPM P-R Int : 104 ms QRS Dur : 74 ms QT Int : 366 ms P-R-T Axes : 73 61 56 degrees QTcB Int : 430 ms Sinus rhythm with short WA Otherwise normal ECG When compared with ECG of 15-Dec-2023 23:15, ST no longer depressed in Anterior leads T wave inversion no longer evident in Inferior leads T wave inversion no longer evident in Anterior leads Referred By: Generic ED Physician Electronically Signed By: DENICE ORDOÑEZ
--- NOTE | ~2024-09-10 | XR_ITS ---
CLINICAL HISTORY: dyspnea 1 view chest x-ray Comparison: CR/SR - XR CHEST 2V - 12/15/23 21:16 EDT Findings: No consolidation or effusion. Normal size heart. No acute fracture. IMPRESSION: 1. No acute findings. This document has been electronically signed by: Sonja Clancy MD on 09/10/2024 23:38:27
[2024-09-10 22:28] VITALS: BP 130/89; PULSE 106; O2SAT 100
[2024-09-10 22:30] VITALS: BP 138/78; PULSE 95; RESP 14; TEMP 36.9; O2SAT 97
[2024-09-10 22:42] VITALS: BMI 23.0
--- NOTE | 2024-09-10 23:21 | PC.NURSE ---
pt reports he has not been able to sip water, immediately vomits. not PO intake since sunday. unable to urinate per pt
[2024-09-10 23:29] LABS: Basophils Absolute Auto 0.1 X10*3/uL (0.0-0.2); Basophils Percent Auto 0.4 % (0-2); Eosinophils Absolute Auto 0.1 X10*3/uL (0.0-0.4); Eosinophils Percent Auto 0.4 % (0-4); Hematocrit 45.2 % (42.0-52.0); Hemoglobin 16.9 g/dl (14.0-18.0); Imm Gran Abs Auto 0.06 X10*3/uL (0.00-0.03); Imm Gran Pct Auto 0.5 % (0.0-0.4); Lymphocytes Absolute Auto 1.7 X10*3/uL (1.2-4.9); Lymphocytes Percent Auto 13.5 % (20-40); MANUAL DIFF FLAG SCAN; Mean Corpuscular HGB Conc 37.4 g/dl (31.0-36.0); Mean Corpuscular Hemoglobin 33.7 pg (27.0-33.0); Mean Corpuscular Volume 90.2 fL (80.0-98.0); Mean Platelet Volume 9.5 fL (9.4-12.4); Monocytes Absolute Auto 1.5 X10*3/uL (0.1-1.2); Monocytes Percent Auto 11.8 % (2-11); Neutrophils Absolute Auto 9.4 x10*3/uL (2.0-8.3); Neutrophils Percent Auto 73.4 % (45-73); Platelet Count 314 X10*3/uL (160-400); Red Blood Count 5.01 X10*6/uL (4.60-5.80); Red Cell Distribution Width 13.1 % (11.0-16.0); SCAN SMEAR FLAG 1; White Blood Count 12.8 X10*3/uL (4.8-10.8)
[2024-09-10 23:46] LABS: Alanine Aminotransferase 47 U/L (0-40); Albumin Level 5.1 g/dL (3.5-5.0); Alkaline Phosphatase 75 U/L (39-117); Anion Gap 23 (12-20); Aspartate Amino Transferase 63 U/L (5-37); Bilirubin Total 0.4 mg/dL (0.0-1.0); Blood Urea Nitrogen 59 mg/dL (9-16); Calcium 8.8 mg/dL (8.4-10.2); Carbon Dioxide 19 mmol/L (22-29); Chloride 95 mmol/L (96-108); Creatinine Clr Calc Pharmacy 24.2; Estimated Glomerular Filt Rate 24; Glucose Random 129 mg/dL (60-115); Lipase 48 U/L (8-78); Sodium 132 mmol/L (135-145); Total Protein 9.3 g/dL (6.5-8.0)
[2024-09-10 23:47] LABS: SLIDE REVIEW VERIFIED
[2024-09-10 23:51] LABS: Troponin-I High Sensitivity 5.2 ng/L (<3.5-35.0)
[2024-09-11] VITALS (8 sets, daily range): BP systolic 106–137; BP diastolic 55–80; PULSE 73–83; RESP 10–18; TEMP 36.5–37.6; O2SAT 96–99; BMI 19.3
--- NOTE | 2024-09-11 00:14 | ED_ITS ---
HPI - Nausea/Vomiting/Diarrhea General Chief complaint: Nausea/Vomiting/Diarrhea Stated complaint: vomiting x4 days Time Seen by Provider: 09/11/24 00:00 Source: patient and EMS Mode of arrival: EMS Limitations: no limitations History of Present Illness ED Provider: Dr. Fadumo Garcia HPI Narrative: Patient comes to the emergency room complaining of vomiting for 3-4 days. 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 Patient states that he had been trying to keep up with his fluids. However, 3-4 days ago every time that he eats or drinks anything, he vomits. Complaining of diffuse abdominal cramping, no diarrhea, no fever chills to his knowledge. Patient states that he went to his Suboxone clinic today as scheduled. Patient's PCP told the patient that he needed to report to the ER at [facility] where they were. Patient refused and went home. Then patient continued feeling worse, not able to tolerate p.o. and came to the emergency room EMS gave the patient a dose of Zofran and started IV fluids. Related Data Home Medications ?Medication ?Instructions ?Recorded ?Confirmed albuterol sulfate 2.5 mg/3 mL 2.5 mg inhalation Q4H MN N Wheezing 12/16/23 12/16/23 (0.083 %) solution for nebulization albuterol sulfate 90 mcg/actuation 2 puff inhalation Q 4H PRN 12/16/23 12/16/23 aerosol inhaler Shortness Of Breath Or Wheez ing buprenorphine 8 mg-naloxone 2 mg 0.5 film sublingual B EDTIME 12/16/23 12/16/23 sublingual film buprenorphine 8 mg-naloxone 2 mg 1 film sublingual DARNELL LY 12/16/23 12/16/23 sublingual film buprenorphine 8 mg-naloxone 2 mg 1 film sublingual DARNELL LY@1700 12/16/23 12/16/23 sublingual film ondansetron HCl 4 mg tablet 4 mg PO BID PRN nausea 12/16/23 umeclidinium 62.5 mcg-vilanterol 1 ea inhalation DAILY 12/16/23 12/16/23 25 mcg/actuation powdr for inhalation (Anoro Ellipta) Previous Rx's ?Medication ?Instructions ?Recorded benzonatate 100 mg capsule 200 mg (2 x 100 mg) PO TID PRN 12/19/23 Cough #20 caps folic acid 1 mg tablet 1 mg PO DAILY #30 tabs 12/18 naproxen 500 mg tablet 500 mg PO BID PRN pain #20 t abs 08/21/24 Allergies Allergy/AdvReac Type Severity Reaction Status Date / Time No Known Allergies Allergy Verified 09/10/24 22:47 Review of Systems 2 Review of Systems: Constitutional : No Weight loss, No Fever, No Chills, No Night Sweats, complaining of fatigue, diffuse muscle ache ENT/Mouth : No Hearing loss, No Ear Pain, No Nasal Congestion, No Sinus Pain, No Hoarseness, No sore throat, No Rhinorrhea, No Swallowing Difficulty Eyes: No Eye Pain, No Swelling, No Redness, No Foreign Body, No Discharge, No Vision Changes Cardiovascular : No Chest Pain, No SOB, No Dyspnea on Exertion, No Orthopnea, No Edema, No Palpitations Respiratory : No Cough, No Sputum, No Wheezing, No Smoke Exposure, No Dyspnea Gastrointestinal : Complaining of nausea and vomiting, No Diarrhea, No Constipation, No abdominal Pain, No Hematochezia, No Melena Genitourinary : no irregular bleeding, No Dysuria, No Urinary Frequency, No Hematuria, No Urinary Incontinence, No Urgency, No Flank Pain, No Urinary Flow Changes, No Hesitancy Musculoskeletal : Diffuse myalgias and diffuse body cramps Skin : No Skin Lesions, No rash Neuro : No Weakness, No Numbness, No Paresthesias, No Loss of Consciousness, No Dizziness, No Headache Psych : No Anxiety/Panic, No Depression, No SI/HI/AH/VH, No Social Issues, Heme/Lymph: No Bruising, No Bleeding,No Lymphadenopathy Endocrine : No Polyuria, No Polydipsia, No Temperature Intolerance [facility] Past Medical History Medical History History of pneumothorax Hepatitis C Amputation of left lower extremity below knee Nicotine dependence, cigarettes, uncomplicated RAD (reactive airway disease) Opiate dependence Alcohol abuse COPD (chronic obstructive pulmonary disease) Surgical History (Updated 08/08/24 @ 10:34 by Mariah Figueroa PA-C) History of nasal surgery History of ear surgery History of neck surgery History of below-knee amputation of left lower extremity Social History Social History (Updated 08/08/24 @ 10:35 by Mariah Figueroa PA-C) Household Members: Family Household Members Other:: Cousin Housing: House Do you presently have visiting nurse or other home services: No Alcohol intake: current Alcohol intake frequency: 3 or more drinks per day Alcohol type: beer Comment: pt refuses high risk interventions Patient Tobacco Use Status: Current everyday Tobacco user Tobacco use type: Cigarette Cigarettes Per Day: 10 Years Smoked: (onset 8yo - 1/2-1ppd x 45yrs, 30pyh) Smoked in Last 30 Days: Yes e-Cigarette/Vaping Use: Currently Using Second Hand Smoke Exposure: Yes Use of substances other than those prescribed or required for medical reasons: Yes Substance Use Type: Former Substance User and Marijuana Advance Directives: Yes Advance Directives on File: Yes Advance Directives Date on File: 01/23/23 service: No Physical Exam 2 Vital Signs: Vital Signs: Last Vital Signs Temp 98.0 F 09/11/24 02:31 Pulse 76 09/11/24 02:31 Resp 18 09/11/24 02:31 BP 136/80 09/11/24 02:31 Pulse Ox 98 09/11/24 02:31 O2 Del Method Room Air 09/11/24 02:31 BMI result Body Mass Index 23.0 Const: Other: Appearance: Alert. Oriented X3. No acute distress. Eyes: Pupils equal, round and reactive to light. ENT: Pharynx normal. Neck: Normal inspection. Neck supple. No lymph nodes noted. No crepitus CVS: Normal heart rate and rhythm. Pulses normal. Normal S1 and S2 Respiratory: No respiratory distress. Breath sounds normal. No Wheezing. No rales Abdomen: Soft and nontender. No rigidity. No distention. Skin: Skin warm and dry. Normal skin color. Normal skin turgor. Extremities: Right BKA, no lower extremity edema on the left Neuro: Oriented X 3. No motor deficit. No sensory deficit. Moving all extremities. No slurred speech. CN 2 through 12 grossly intact Psych: calm, cooperative, normal affect Course Course Course Narrative: Patient comes to the emergency room complaining of dehydration, vomiting, muscle pains and spasms, secondary to working for prolonged period of time on an almost 100 F weather Patient is likely dehydrated, IV fluids and Zofran have been started. All of patient's labs pending Medications Administered Discontinued Medications Generic Name Dose Route Start Last Admin Trade Name Fermin PRN Reason Stop Dose Admin Lactated Ringer's 2,000 mls @ 999 mls/hr 09/11/24 00:15 09/11/24 02:25 Lr IV 09/11/24 02:15 Infused .Q2H1M LEVY Infusion Ondansetron HCl 4 mg 09/11/24 00:11 09/11/24 00:16 Ondansetron Hcl 4 Mg/2 Ml Vial IVPUSH 09/11/24 00:12 4 mg ONCE ONE Administration Medical Decision Making Medical Decision Making [facility] Narrative: My interpretation of labs: Patient's white blood cell count 12.8, rest of hematology at baseline, chemistry shows a sodium of 132, normal potassium, patient's BUN and creatinine are 2.77 respectively, LFTs elevated at baseline, CPK 399, troponin 5.2, lipase within normal limits. Patient states that he has been decreasing his amount of alcohol, states that he only drank a few beers today to take the edge off. Patient denies using any drugs. I discussed with the patient that after IV hydration, we will recheck labs. However, if there is no much improvement in his labs, he may need to be admitted. Patient agrees with plan. After 2 L of IV fluids, patient's creatinine did not improve much, went from 2.77 down to 2.14. Patient's baseline is less than 1.0 I discussed the patient with Dr. Arzola from the Medicine team, patient being admitted Differential Diagnosis Differential Diagnoses: The differential diagnosis associated with the presentation includes (Rhabdomyolysis, heat exhaustion, dehydration) Admission/Observation Consideration of admission/observation: Escalation of care including admission/observation considered Consult Healthcare Provider Management of the patient was discussed with: Hospitalist Lab Data [facility] Lab Attestation statement: I reviewed the patient's lab results. 09/10/24 23:23 09/11/24 02:30 Labs: Lab Results 09/10/24 09/11/24 09/11/24 Range/Units 23:23 00:07 02:30 WBC 12.8 H (4.8-10.8) X10*3/uL RBC 5.01 D (4.60-5.80) X10*6/uL Hgb 16.9 D (14.0-18.0) g/dl Hct 45.2 (42.0-52.0) % MCV 90.2 (80.0-98.0) fL MCH 33.7 H (27.0-33.0) pg MCHC 37.4 H (31.0-36.0) g/dl RDW 13.1 (11.0-16.0) % Plt Count 314 D (160-400) X10*3/uL MPV 9.5 (9.4-12.4) fL Immature Gran % (Auto) 0.5 H (0.0-0.4) % Neut % (Auto) 73.4 H (45-73) % Lymph % (Auto) 13.5 L (20-40) % [place] % (Auto) 11.8 H (2-11) % Eos % (Auto) 0.4 (0-4) % Baso % (Auto) 0.4 (0-2) % Lymph # (Auto) 1.7 (1.2-4.9) X10*3/uL [place] # (Auto) 1.5 H (0.1-1.2) X10*3/uL Eos # (Auto) 0.1 (0.0-0.4) X10*3/uL Baso # (Auto) 0.1 (0.0-0.2) X10*3/uL Abs Immat Gran (auto) 0.06 H (0.00-0.03) X10*3/uL Absolute Neuts (auto) 9.4 H (2.0-8.3) x10*3/uL Absolute Nucleated RBC 0.000 (0.0-0.012) X10*3/uL Nucleated RBC % (auto) 0.0 (0.0-0.2) /100WBC Smear Tech's Comments VERIFIED Sodium 132 L 133 L (135-145) mmol/L Potassium 5.0 D 4.4 (3.3-5.1) mmol/L Chloride 95 L 96 (96-108) mmol/L Carbon Dioxide 19 L 22 (22-29) mmol/L Anion Gap 23 H 19 (12-20) BUN 59 H 52 H (9-16) mg/dL Creatinine 2.77 H 2.14 H (0.5-1.4) mg/dL Estim Creat Clear Calc 24.2 31.3 Estimated GFR 24 32 Random Glucose 129 H 107 (60-115) mg/dL Lactic Acid 1.4 (0.5-2.0) mmol/L Calcium 8.8 D 8.4 (8.4-10.2) mg/dL Magnesium 3.0 H (1.6-2.6) mg/dL Total Bilirubin 0.4 (0.0-1.0) mg/dL AST 63 H (5-37) U/L ALT 47 H (0-40) U/L Alkaline Phosphatase 75 (39-117) U/L Total Creatine Kinase 399 H (38-174) U/L Troponin I High Sens 5.2 D (<3.5-35.0) ng/L Total Protein 9.3 H (6.5-8.0) g/dL Albumin 5.1 H (3.5-5.0) g/dL Lipase 48 (8-78) U/L Independent Interpretation I performed an independent interpretation of an: Plain X-Ray Radiology Impression Discussion of test interpretation with radiology: I have reviewed the radiologist's reading. Radiologist Impression: No consolidation or effusion. Normal size heart. No acute fracture. Critical Care Time Critical Care Time Critical Care Time: Yes Total Critical Care Time: 60 Attestation: I have personally provided critical care time. Time includes review of lab data, radiology results, discussion with consultants, and monitoring for potential decompensation. Intervention performed as documented. Discharge Plan Discharge Clinical Impression: RIGO (acute kidney injury), Rhabdomyolysis Patient Disposition: Admitted As Inpatient Print Language: Tuvaluan
[2024-09-11] MEDS: ondansetron HCL 4 MG/2 ML VIAL IVPUSH (00:16)
[2024-09-11] MEDS: Lactated Ringers 2,000 ML 999 ML IV (00:17)
[2024-09-11 00:32] LABS: Lactic Acid 1.4 mmol/L (0.5-2.0)
[2024-09-11 02:54] LABS: Anion Gap 19 (12-20); Blood Urea Nitrogen 52 mg/dL (9-16); Calcium 8.4 mg/dL (8.4-10.2); Carbon Dioxide 22 mmol/L (22-29); Chloride 96 mmol/L (96-108); Creatinine Clr Calc Pharmacy 31.3; Estimated Glomerular Filt Rate 32; Glucose Random 107 mg/dL (60-115); Potassium 4.4 mmol/L (3.3-5.1); Sodium 133 mmol/L (135-145)
--- NOTE | 2024-09-11 03:10 | PC.NURSE ---
pt ambulated with a steady gait to the bathroom to urinate. UA collected. upon return to room, pt reports dizziness/lightheaded. pt resting in bed at this time.
--- NOTE | 2024-09-11 03:16 | PC.NURSE ---
PO trial, pt tolerated water and crackers. no vomiting at this time
[2024-09-11 03:30] LABS: Appearance Urine Clear; Color Urine Yellow; Glucose Urine UA Negative (Negative); Leukocyte Esterase Urine Trace (Negative); Nitrite Urine Negative (Negative); PH 5.5 (5.0-9.0); UMIC TRIGGER UACC YES; Urine Blood Negative (Negative); Urine Ketones Trace mg/dL (Negative); Urine Protein 30 (1+) mg/dL (Neg-Trace)
[2024-09-11 03:38] LABS: Bacteria Urine None Seen (None Seen); Hyaline Casts Urine >20 /LPF (0-2); RBC Urine 0-2 /HPF (0-2); WBC Urine 0-5 /HPF (0-5)
[2024-09-11 04:29] LABS: Amphetamine Screen Urine Not Detected (Not Detect); Barbiturates, Urine Not Detected (Not Detect); Benzodiazepines Screen Urine Not Detected (Not Detect); Buprenorphine Scr Positive (Not Detect); Cannabinoid Screen Urine POSITIVE (Not Detect); Cocaine Screen Urine Not Detected (Not Detect); Fentanyl, urine Not Detected (Not Detect); Methadone Screen, Urine Not Detected (Not Detect); Opiate Screen Urine Not Detected (Not Detect); Oxycodone Screen Urine Not Detected (Not Detect); Phencyclidine Screen Urine Not Detected (Not Detect)
--- NOTE | 2024-09-11 05:01 | P.HPHOSP_ITS ---
History of Present Illness Date of Service: 09/11/24 Attending physician on admission: Duncan Arzola Chief Complaint: nausea and vomiting Patient is a 53-year-old male with past medical history LBKA with recent infection, opioid use disorder/ IVDA on Suboxone, PTX, Tobacco dependence, depression, RAD/ COPD, alcohol abuse. hepatitis-C completed tx 2019 while in senior living, , hearing loss left ear , chronic marijuana use presents to the emergency room via ambulance with complaints of nausea and persistent vomiting since this past Sunday. Patient patient reports not being able to hold anything down until the last 2-3 hours when patient was able to sleep. Patient had associated back pain and back spasms which are now resolving. 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 Patient did the best he could trying to stay hydrated. Patient denies any diarrhea or abdominal cramping. Patient did miss his Suboxone this past 24 hours due to his symptoms. Patient does drink daily until 3-4 days prior when patient has started feeling ill. Patient drinks 2-324 oz beers and minimum 3 shots of vodka per day. Patient has gone to detox 11 times in the past. Patient's symptoms may be attributed to alcohol withdrawal. Patient did report tremors earlier Sunday morning. Patient denies any seizures associated with alcohol withdrawal in the past.. RIGO noted via patient's labs. Patient has a leukocytosis and is currently afebrile. Total CK is elevated to 355. Patient was having all-over body cramping. Magnesium 3.0. Urinalysis has trace leukocyte esterase. Chest x-ray negative for any acute findings. Lactic acid normal limits. Patient was started on antiemetics and IV fluids. IV fluids will continue. Nephrology consulted. Patient also having issues with his left medial knee area secondary to a ill- fitting prosthesis. Patient was in the process of getting a new prosthesis 3 weeks prior but developed an infection and was treated with antibiotics. The area involved appears irritated with no obvious cellulitis or drainage. Wound care consulted for recommendations regarding coverings that could help protect the area when patient is wearing his prosthesis. Patient instructed that he should follow with his primary care physician and prosthesis provider in the outpatient setting. Antibiotics not currently indicated. Patient has been experiencing increased depression secondary to his living situation where his cousins been living in his home and there have been multiple altercations involving the police and long term time for the cousin. Currently patient is trying to evict cousin from his home. Patient does not require restraining order at this time. Patient is seeking psychiatric care through [facility]. Patient denies any suicide ideations or homicidal ideations. Patient is deferring psychiatric consultation this inpatient admission at this time. Review of Systems 2 Review of Systems: Patient had just awakened after 2-3 hours of resting. Patient denies any current nausea or vomiting. Patient denies any abdominal pain. Patient has not had any diarrhea. Patient denies any headache or visual changes. Patient was having tremors earlier but currently is not experiencing any tremors or alcohol withdrawal symptoms. Patient denies any chest pain or shortness of breath at rest. Yes all other systems are reviewed and are negative [facility] [place] Medical History (Updated 09/11/24 @ 05:51 by DUSTIN Webb) Encounter for other plastic and reconstructive surgery following medical procedure or healed injury History of pneumothorax Hepatitis C Amputation of left lower extremity below knee Nicotine dependence, cigarettes, uncomplicated RAD (reactive airway disease) Opiate dependence Alcohol abuse COPD (chronic obstructive pulmonary disease) Cognitive capacity: Alert and orientated x3 Functional capacity: independent ambulation (Uses prosthesis) Pertinent family history: Unremarkable Surgical History History of nasal surgery History of ear surgery History of neck surgery History of below-knee amputation of left lower extremity Social History Household Members: Family Household Members Other:: Cousin Housing: House Do you presently have visiting nurse or other home services: No Alcohol intake: current Alcohol intake frequency: 3 or more drinks per day Alcohol type: beer Comment: pt refuses high risk interventions Patient Tobacco Use Status: Current someday Tobacco user Tobacco use type: Cigarette Cigarettes Per Day: 10 Years Smoked: (onset 8yo - 1/2-1ppd x 45yrs, 30pyh) Smoked in Last 30 Days: Yes e-Cigarette/Vaping Use: Currently Using Second Hand Smoke Exposure: Yes Use of substances other than those prescribed or required for medical reasons: Yes Substance Use Type: Former Substance User and Marijuana Advance Directives: Yes Advance Directives on File: Yes Advance Directives Date on File: 01/23/23 Nutrition Risks: Acute nausea or vomiting x1 week and Poor intake 0-25% >4 days service: No Ebola Risk: Travel/Contact With Anyone From Affected Area/s: No Has Patient Experienced Ebola Symptoms: No Meds Allergies Allergy/AdvReac Type Severity Reaction Status Date / Time No Known Allergies Allergy Verified 09/10/24 22:47 Active Medications: Current Medications Acetaminophen (Acetaminophen 325 Mg Tablet) 650 mg PO Q6H PRN PRN Reason: Pain, Mild 1-3,fever,headache Albuterol/Ipratropium (Albuterol/Iprat 2.5/0.5mg 3 Ml Ampul.Neb) 3 ml INHALE Q4H PRN PRN Reason: Shortness of Breath/Wheezing Calcium Carbonate (Calcium Carbonate 750 Mg Tab.Chew) 750 mg PO Q4H PRN PRN Reason: Heartburn Heparin Sodium (Porcine) (Heparin Sodium,Porcine 5,000 Unit/Ml Vial) 5,000 unit SUBCUT Q8H [facility] Lactated Ringer's (Lr) 1,000 mls @ 125 mls/hr IVCONT .Q8H [facility] Magnesium Hydroxide (Milk Of Magnesia 30 Ml Oral.Susp) 30 ml PO DAILY PRN PRN Reason: Constipation Melatonin (Melatonin 3 Mg Tablet) 6 mg PO BEDTIME PRN PRN Reason: Insomnia Ondansetron HCl (Ondansetron Hcl 4 Mg/2 Ml Vial) 4 mg IVPUSH Q8H PRN PRN Reason: Nausea and Vomiting Sodium Chloride (0.9 % Sodium Chloride Flush 3 Ml Syringe) 3 ml IVFLUSH QSHIFT [facility] Home Medications ?Medication ?Instructions ?Recorded ?Confirmed ?Last Taken ?Type albuterol sulfate 2.5 mg/3 mL 2.5 mg inhalation Q4H [place] N Wheezing 12/16/23 12/16/23 Unknown History (0.083 %) solution for nebulization albuterol sulfate 90 mcg/actuation 2 puff inhalation Q 4H PRN 12/16/23 12/16/23 Unknown History aerosol inhaler Shortness Of Breath Or Wheez ing buprenorphine 8 mg-naloxone 2 mg 0.5 film sublingual B EDTIME 12/16/23 12/16/23 Unknown History sublingual film buprenorphine 8 mg-naloxone 2 mg 1 film sublingual DARNELL LY 09/12/16/23 12/16/23 History sublingual film buprenorphine 8 mg-naloxone 2 mg 1 film sublingual DARNELL LY@1700 12/16/23 12/16/23 Unknown History sublingual film ondansetron HCl 4 mg tablet 4 mg PO BID PRN nausea 12/16/23 Unknown History umeclidinium 62.5 mcg-vilanterol 1 ea inhalation DAILY 12/16/23 12/16/23 Unknown History 25 mcg/actuation powdr for inhalation (Anoro Ellipta) Physical Exam 2 Vital Signs and Narrative: Vital Signs: Last Vital Signs Temp 98.0 F 09/11/24 04:40 Pulse 82 09/11/24 04:40 Resp 18 09/11/24 04:40 BP 117/72 09/11/24 04:40 Pulse Ox 98 09/11/24 04:40 O2 Del Method Room Air 09/11/24 04:40 BMI result Body Mass Index 23.0 Alert and orientated X3, able to give good history. Very talkative without dry heaves or nausea. Neuro: CN II-X11 intact, no deficits, visual acuity intact EYES: PERRLA, EOM intact, sclera non icteric ENT: hearing intact R ear, hearign loss left ear, no issues with swallowing, uvula midline, lips moist, nares patent no epistaxis Cardiac: S1 S2 RRR, no murmur, no JVD, no edema in Lower ext Pulmonary: lungs clear to ausculation B Abdominal: BS active in all 4 quadrants, no guarding, tenderness, rebounding MSK: strength 5/5 upper and lower extremities : no CVA tenderness no bladder distension Extremities: no edema in lower extremities, PT and DP pulses palpable +2 Psych: mood stable, judgement and insight good Skin: Left lmedial knee, area of raised irritation, ring of redness no drainage or warmth noted Results Labs 09/10/24 23:23 09/11/24 02:30 Labs: Laboratory Results - last 24 hr 09/10/24 09/11/24 09/11/24 23:23 00:07 02:30 MCV 90.2 MCH 33.7 H MCHC 37.4 H RDW 13.1 Plt Count 314 D MPV 9.5 Immature Gran % (Auto) 0.5 H Neut % (Auto) 73.4 H Lymph % (Auto) 13.5 L [place] % (Auto) 11.8 H Eos % (Auto) 0.4 Baso % (Auto) 0.4 Lymph # (Auto) 1.7 [place] # (Auto) 1.5 H Eos # (Auto) 0.1 Baso # (Auto) 0.1 Abs Immat Gran (auto) 0.06 H Absolute Neuts (auto) 9.4 H Absolute Nucleated RBC 0.000 Nucleated RBC % (auto) 0.0 Smear Tech's Comments VERIFIED Anion Gap 23 H 19 Estim Creat Clear Calc 24.2 31.3 Estimated GFR 24 32 Random Glucose 129 H 107 Lactic Acid 1.4 Calcium 8.8 D 8.4 Magnesium 3.0 H Total Bilirubin 0.4 AST 63 H ALT 47 H Alkaline Phosphatase 75 Total Creatine Kinase 399 H Troponin I High Sens 5.2 D Total Protein 9.3 H Albumin 5.1 H Lipase 48 Urine Color Urine Appearance Urine pH Ur Specific [place] Urine Protein Urine Glucose (UA) Urine Ketones Urine Blood Urine Nitrite Ur Leukocyte Esterase Urine RBC Urine WBC Ur Squamous Epith Cells Urine Bacteria Hyaline Casts Urine Opiates Screen Ur Buprenorphine Scrn Ur Oxycodone Screen Urine Methadone Screen Urine Fentanyl Screen Ur Barbiturates Screen Ur Phencyclidine Scrn Ur Amphetamines Screen U Benzodiazepines Scrn Urine Cocaine Screen U Marijuana (THC) Screen 09/11/24 03:15 MCV MCH MCHC RDW Plt Count MPV Immature Gran % (Auto) Neut % (Auto) Lymph % (Auto) [place] % (Auto) Eos % (Auto) Baso % (Auto) Lymph # (Auto) [place] # (Auto) Eos # (Auto) Baso # (Auto) Abs Immat Gran (auto) Absolute Neuts (auto) Absolute Nucleated RBC Nucleated RBC % (auto) Smear Tech's Comments Anion Gap Estim Creat Clear Calc Estimated GFR Random Glucose Lactic Acid Calcium Magnesium Total Bilirubin AST ALT Alkaline Phosphatase Total Creatine Kinase Troponin I High Sens Total Protein Albumin Lipase Urine Color Yellow Urine Appearance Clear Urine pH 5.5 Ur Specific [place] 1.020 Urine Protein 30 (1+) H Urine Glucose (UA) Negative Urine Ketones Trace Urine Blood Negative Urine Nitrite Negative Ur Leukocyte Esterase Trace H Urine RBC 0-2 Urine WBC 0-5 Ur Squamous Epith Cells 6-10 Urine Bacteria None Seen Hyaline Casts >20 Urine Opiates Screen Not Detected Ur Buprenorphine Scrn Positive H Ur Oxycodone Screen Not Detected Urine Methadone Screen Not Detected Urine Fentanyl Screen Not Detected Ur Barbiturates Screen Not Detected Ur Phencyclidine Scrn Not Detected Ur Amphetamines Screen Not Detected U Benzodiazepines Scrn Not Detected Urine Cocaine Screen Not Detected U Marijuana (THC) Screen POSITIVE H ECG Attestation: I personally reviewed and interpreted this ECG as follows: (Sinus rhythm no ischemic changes) Prior ECG tracings: available for review Imaging Radiologist's Impressions: Chest x-ray No acute findings Assessment and Plan (1) RIGO (acute kidney injury): Status: Acute Plan Patient is a 53-year-old male with past medical history LBKA with recent infection, opioid use disorder/ IVDA on Suboxone, PTX, Tobacco dependence, depression, RAD/ COPD, alcohol abuse. hepatitis-C completed tx 2019 while in senior living, , hearing loss left ear , chronic marijuana is being admitted for RIGO and rhabdo secondary to suspicion for dehydration. Patient also presents with possible symptoms of alcohol withdrawal. RIGO/ mild hyponatremia -Suspect heat exposute, dehydration -Nephrology consulted -Hydration continued -Repeat BNP in the a.m. -Avoid nephrotoxic meds including NSAIDs -Avoid hypotension -UA +1 proteinuria, negative for UTI -urine studies ordered Rhabdomyolysis -Continue IV fluids -CK initially 399 -noted renal issues as above -Repeat CK in the a.m. Dehydration secondary to heat exposure without heat exhaustion or heat stroke -IV fluids continue -Repeat BMP in the a.m. -Encourage p.o. intake, full clear diet ordered Opiate use disorder on Suboxone -Patient missed 2 Suboxone last 24 hours -Await med rec and reorder Suboxone Hepatitis-C/ history of IV drug abuse -Last treatment was 2019 -Patient defers using IV drugs after treatment was completed -Patient believes his hepatitis-C is back, asking for repeat testing Alcohol abuse -Patient may be experiencing symptoms of withdrawal -Ativan 1 mg p.o. x1 -CIWA ordered, phenobarb not indicated as patient is currently asymptomatic -Patient deferred need to speak with the addictions -Thiamine and folic acid ordered Tobacco depend/ COPD -Nicotine patch ordered -Patient counseled on the benefits of smoking cessation -Duo nebs prn, no hypxoia noted on admission History of LBKA with recent infection -Wound care consulted to address raised area medial knee secondary to poor fitting prosthesis -No leukocytosis and low suspicion for infection or osteomyelitis. Depression -Patient denies any SI or HI -Patient deferred need for psychiatric consultation inpatient -Patient[facility] is arranging psychiatric care in the outpatient setting -Will check vitamin-D level DVT prophylaxis: Heparin subQ PPI prophylaxis: Protonix Med rec pending Full code status Quality Stroke Does the patient have a stroke diagnosis?: No Reason for No Anti-thrombotic by Day Two: N/A - Med Ordered VTE Prior VTE?: No VTE Risk Level:: Medical - moderate - high VTE Device Contraindication: N/A - Device Ordered VTE Drug Contraindication: N/A - Med Ordered
[2024-09-11] MEDS: Pantoprazole Sodium 40 MG/10 ML VIAL IVPUSH (05:52)
[2024-09-11] MEDS: Heparin Sodium,Porcine 5,000 UNIT/ML VIAL 5000 UNIT SUBCUT ×3 (05:52→19:45)
[2024-09-11] MEDS: Lactated Ringers 1,000 ML 125 ML IVCONT ×3 (05:52→19:46)
[2024-09-11] MEDS: LORazepam 1 MG TABLET PO ×2 (06:01→20:06)
[2024-09-11] MEDS: Acetaminophen 325 MG TABLET 650 MG PO (06:01)
[2024-09-11 06:24] LABS: Basophils Absolute Auto 0.1 X10*3/uL (0.0-0.2); Basophils Percent Auto 0.5 % (0-2); Eosinophils Absolute Auto 0.1 X10*3/uL (0.0-0.4); Hematocrit 39.4 % (42.0-52.0); Hemoglobin 14.4 g/dl (14.0-18.0); Imm Gran Abs Auto 0.03 X10*3/uL (0.00-0.03); Imm Gran Pct Auto 0.3 % (0.0-0.4); Lymphocytes Absolute Auto 2.3 X10*3/uL (1.2-4.9); MANUAL DIFF FLAG SCAN; Mean Corpuscular HGB Conc 36.5 g/dl (31.0-36.0); Mean Corpuscular Hemoglobin 33.6 pg (27.0-33.0); Mean Corpuscular Volume 92.1 fL (80.0-98.0); Mean Platelet Volume 9.9 fL (9.4-12.4); Monocytes Percent Auto 17.9 % (2-11); Neutrophils Absolute Auto 6.6 x10*3/uL (2.0-8.3); Neutrophils Percent Auto 59.3 % (45-73); Platelet Count 251 X10*3/uL (160-400); Red Blood Count 4.28 X10*6/uL (4.60-5.80); SCAN SMEAR FLAG 1; White Blood Count 11.1 X10*3/uL (4.8-10.8)
--- NOTE | 2024-09-11 07:01 | PC.NURSE ---
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 unable to tolerate any PO intake since sunday after working in the heat. ADMIT: rhabdo, RIGO. CPK 399, BUN 59, creatinine 2.77. daily ETOH, last drink 2 days ago d/t n/v. pt denies withdrawal at this time, denies hx of w/d seizure. pt medicated with ativan at 0600. pt missed suboxone dose yesterday. NSR on tele. VSS. pt A/O x4, calm and cooperative with care, LBKA with prosthetic, ambulates independently. clear liquid diet. tolerated PO trial. 20g IV L forearm. LR infusing 125 mls/hr. wound consult for stump, previously infected, nephrology consult for RIGO.
--- NOTE | 2024-09-11 07:07 | PC.NURSE ---
Accepted care pf pt- Pt A&O x4 vss NAD no complaints.
[2024-09-11 07:33] LABS: Creatinine Urine 146.13 mg/dL; Osmolality Urine 515 mosm/kg (373-1093)
[2024-09-11] MEDS: Nicotine 21 MG PATCH.TD24 TRANSDERMA (08:39)
[2024-09-11] MEDS: Folic Acid 1 MG TABLET PO (08:39)
[2024-09-11] MEDS: Thiamine HCL 100 MG TABLET PO (08:39)
--- NOTE | 2024-09-11 09:06 | PHA.MEDREC ---
Pharmacy Consult ? Medication Reconciliation Pharmacy has completed the medication reconciliation. Spoke with pt to confirm medications. Pt states he is on a green(?) and red (proair? or Anoro?) inhaler. He confirmed albuterol and Anoro.
[2024-09-11 09:43] LABS: Alanine Aminotransferase 31 U/L (0-40); Alkaline Phosphatase 56 U/L (39-117); Anion Gap 10 (12-20); Aspartate Amino Transferase 42 U/L (5-37); Bilirubin Total 0.6 mg/dL (0.0-1.0); Blood Urea Nitrogen 46 mg/dL (9-16); Carbon Dioxide 24 mmol/L (22-29); Chloride 99 mmol/L (96-108); Creatinine Clr Calc Pharmacy 43.3; Estimated Glomerular Filt Rate 47; Glucose Random 110 mg/dL (60-115); Potassium 3.4 mmol/L (3.3-5.1); Sodium 130 mmol/L (135-145); Total Protein 6.9 g/dL (6.5-8.0)
[2024-09-11 09:49] LABS: Vitamin D 25-OH Total 36.1 ng/mL (>30); ~HepC Num1 14.28 S/CO (0.00-0.79); ~Hepatitis C Antibody Reactive (Nonreactive)
--- NOTE | 2024-09-11 11:44 | P.CONNP_ITS ---
History of Present Illness Reason for Consult Consult date: 09/11/24 Chief Complaint Chief complaint: nausea/vomiting History of Present Illness Narrative: 53 y/o male with left BKA with recent infection, opioid use disorder on Suboxone, depression, COPD, alcohol abuse, hepatitis-C completed tx 2019 while in custodial, hearing loss left ear, chronic marijuana use. Presented 09/11 with nausea and persistent vomiting for 5 days with associated back pain and spasms. 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 Daily alcohol use. Nephrology consulted for RIGO. creatinine 2.77 on presentation, most recent baseline level 0.Dec. today creatinine 1.55 also has mild hyponatremia, sodium 130, urine osm 515. receiving fluids LR 125ml/hr Review of Systems Constitutional: Reports fatigue Cardiovascular: Denies chest pain, Denies leg edema and Denies dyspnea Respiratory: Denies dyspnea Gastrointestinal: Denies abdominal pain, Denies diarrhea, Reports nausea and Reports vomiting Genitourinary: Denies hematuria, Denies oliguria, Denies dysuria and Denies flank pain Musculoskeletal: Reports back pain Skin/Breast: Denies rash Endocrine: Reports fatigue [facility] Past Medical History Medical History (Updated 09/11/24 @ 11:52 by Matilde Ash, [employer], STAFF COMMAND AND CONTROL OFFICER[employer]) Encounter for other plastic and reconstructive surgery following medical procedure or healed injury History of pneumothorax Hepatitis C Amputation of left lower extremity below knee Nicotine dependence, cigarettes, uncomplicated RAD (reactive airway disease) Opiate dependence Alcohol abuse COPD (chronic obstructive pulmonary disease) Surgical History Surgical History History of nasal surgery History of ear surgery History of neck surgery History of below-knee amputation of left lower extremity Social History Social History Household Members: Family Household Members Other:: Cousin Housing: House Do you presently have visiting nurse or other home services: No Alcohol intake: current Alcohol intake frequency: 3 or more drinks per day Alcohol type: beer Comment: pt refuses high risk interventions Patient Tobacco Use Status: Current someday Tobacco user Tobacco use type: Cigarette Cigarettes Per Day: 10 Years Smoked: (onset 8yo - 1/2-1ppd x 45yrs, 30pyh) e-Cigarette/Vaping Use: Currently Using Second Hand Smoke Exposure: Yes Substance Use Type: Former Substance User and Marijuana Advance Directives Date on File: 01/23/23 service: No Travel History Ebola Risk: Travel/Contact With Anyone From Affected Area/s: No Has Patient Experienced Ebola Symptoms: No Meds Allergies Allergy/AdvReac Type Severity Reaction Status Date / Time No Known Allergies Allergy Verified 09/10/24 22:47 Active Medications: Current Medications Acetaminophen (Acetaminophen 325 Mg Tablet) 650 mg PO Q6H PRN PRN Reason: Pain, Mild 1-3,fever,headache Last Admin: 09/11/24 06:01 Dose: 650 mg Albuterol/Ipratropium (Albuterol/Iprat 2.5/0.5mg 3 Ml Ampul.Neb) 3 ml INHALE Q4H PRN PRN Reason: Shortness of Breath/Wheezing Calcium Carbonate (Calcium Carbonate 750 Mg Tab.Chew) 750 mg PO Q4H PRN PRN Reason: Heartburn Folic Acid (Folic Acid 1 Mg Tablet) 1 mg PO DAILY [facility] Last Admin: 09/11/24 08:39 Dose: 1 mg Heparin Sodium (Porcine) (Heparin Sodium,Porcine 5,000 Unit/Ml Vial) 5,000 unit SUBCUT Q8H [facility] Last Admin: 09/11/24 05:52 Dose: 5,000 unit Lactated Ringer's (Lr) 1,000 mls @ 125 mls/hr IVCONT .Q8H [facility] Last Admin: 09/11/24 05:52 Dose: 125 mls/hr Magnesium Hydroxide (Milk Of Magnesia 30 Ml Oral.Susp) 30 ml PO DAILY PRN PRN Reason: Constipation Melatonin (Melatonin 3 Mg Tablet) 6 mg PO BEDTIME PRN PRN Reason: Insomnia Nicotine (Nicotine 21 Mg Patch.Td24) 21 mg TRANSDERMA DAILY [facility] Last Admin: 09/11/24 08:39 Dose: 21 mg Ondansetron HCl (Ondansetron Hcl 4 Mg/2 Ml Vial) 4 mg IVPUSH Q8H PRN PRN Reason: Nausea and Vomiting Sodium Chloride (0.9 % Sodium Chloride Flush 3 Ml Syringe) 3 ml IVFLUSH QSHIFT [facility] Last Admin: 09/11/24 09:16 Dose: Not Given Thiamine HCl (Thiamine Hcl 100 Mg Tablet) 100 mg PO DAILY [facility] Last Admin: 09/11/24 08:39 Dose: 100 mg Home Medications ?Medication ?Instructions ?Recorded ?Confirmed ?Last Taken ?Type albuterol sulfate 2.5 mg/3 mL 2.5 mg inhalation Q4H [place] Wheezing 12/16/23 09/11/24 09/09/24 History (0.083 %) solution for nebulization albuterol sulfate 90 mcg/actuation 2 puff inhalation Q 4H PRN 12/16/23 09/11/24 09/09/24 History aerosol inhaler Shortness Of Breath Or Wheez ing buprenorphine 8 mg-naloxone 2 mg 0.5 film sublingual B EDTIME 12/16/23 09/11/24 09/09/24 History sublingual film buprenorphine 8 mg-naloxone 2 mg 1 film sublingual DARNELL LY 12/16/23 09/11/24 09/09/24 History sublingual film buprenorphine 8 mg-naloxone 2 mg 1 film sublingual DARNELL LY@1700 12/16/23 09/11/24 09/09/24 History sublingual film umeclidinium 62.5 mcg-vilanterol 1 ea inhalation DAILY 12/16/23 09/11/24 09/09/24 History 25 mcg/actuation powdr for inhalation (Anoro Ellipta) acetaminophen 325 mg tablet 650 mg PO Q4H PRN Pain 09/11/24 Unknown History ibuprofen 600 mg tablet 600 mg PO Q6H 09/11/2409/1109/09/24 History sertraline 50 mg tablet 50 mg PO DAILY 09/11/24 06/09/1009/09/24 History Physical Exam Vital Signs: Last Vital Signs Temp 99.7 F 09/11/24 10:50 Pulse 79 09/11/24 10:50 Resp 10 L 09/11/24 10:50 BP 106/63 09/11/24 10:50 Pulse Ox 96 09/11/24 10:50 O2 Del Method Room Air 09/11/24 10:50 BMI result Body Mass Index 23.0 Const General: lethargic Orientation/consciousness: lethargic Resp Effort & Inspection: normal respiratory effort Auscultation: clear to auscultation bilaterally Cardio Rate: regular rate Rhythm: regular rhythm Heart sounds: S1 normal heart sound present and S2 normal heart sound present GI Palpation (GI): Soft to palpation and nontender General: Yes no CVA tenderness Back/Spine/Pelvis Back: no CVA tenderness Skin Rashes: no rashes Extrem General: No edema Results Lab Results 09/11/24 06:18 09/11/24 08:53 Lab results: Chemistry 09/10/24 09/11/24 09/11/24 23:23 02:30 08:53 Sodium 132 L 133 L 130 L Potassium 5.0 D 4.4 3.4 D Carbon Dioxide 19 L 22 24 BUN 59 H 52 H 46 H Creatinine 2.77 H 2.14 H 1.55 H Calcium 8.8 D 8.4 8.0 L Hematology 09/10/24 09/11/24 23:23 06:18 WBC 12.8 H 11.1 H Hgb 16.9 D 14.4 Plt Count 314 D 251 Urinalysis 09/11/24 03:15 Urine Color Yellow Urine Appearance Clear Urine pH 5.5 Ur Specific [place] 1.020 Urine Protein 30 (1+) H Urine Glucose (UA) Negative Urine Ketones Trace Urine Blood Negative Urine Nitrite Negative Ur Leukocyte Esterase Trace H Urine RBC 0-2 Urine WBC 0-5 Ur Squamous Epith Cells 6-10 Hyaline Casts >20 Urine Studies 09/11/24 07:11 Urine Osmolality 515 Urine Creatinine 146.13 Assessment and Plan (1) RIGO (acute kidney injury): Status: Acute (2) Hyponatremia: Status: Acute Plan RIGO, likely pre-renal injury from dehydration/GI losses from vomiting, poor PO intake for a number of days. creatinine has rapidly improved, anticipate continued improvement mild hyponatremia, worsened with fluids. recommend fluid restriction of 1.2L/24 hours - likely SIADH from nausea and/or alcohol withdrawal given high serum osm recommend daily electrolyte and renal functions studies regular blood pressure checks avoid nephrotoxins will continue to monitor Discussed with Dr Fuentes. Procedures Date of Service Date of Service: 09/11/24
[2024-09-11] MEDS: Sertraline HCL 50 MG TABLET PO (13:16)
[2024-09-11] MEDS: Buprenorphine/Naloxone 8/2 mg FILM 1 FILM SUBLINGUAL ×2 (13:17→16:33)
--- NOTE | 2024-09-11 14:47 | MHC.CM.PN ---
IMM 09/01/24, Pt. lives with his cousin, he does not have home health services, PCP is Gama Banks. HCP is on file and confirmed naming Lizandro. Pt. can arrange transport home at [place]. DCP: is home, self care. CM to follow for DC needs.
--- NOTE | 2024-09-11 15:49 | P.PNIM_ITS ---
Subjective Subjective Date of Service: 09/11/24 Interval History: f/u RIGO, dehydration , rhabdo pt feeling well, no chest pain, SOB, lightheadedness has been working outside in the heat and unable to stay hydrated Review of Systems Review of Systems: Yes all other systems are reviewed and are negative Physical Exam 2 Vital Signs: Vital Signs: Last Vital Signs Temp 98.7 F 09/11/24 15:28 Pulse 78 09/11/24 15:28 Resp 18 09/11/24 15:28 BP 117/67 09/11/24 15:28 Pulse Ox 96 09/11/24 15:28 O2 Del Method Room Air 09/11/24 15:28 BMI result Body Mass Index 19.3 General: AOx3, no acute distress Resp: CTA bilaterally CVS: S1, S2, RRR GI: +BS, NT, no distention Skin: Warm, dry. small healing wound L knee from prosthesis abrasion. no erythema, drainage or tenderness Neuro: Cranial nerves II-XII grossly intact bilaterally. Motor grossly intact bilaterally Extremities: No LE edema s/p L BKA Psych: Appropriate affect Objective Data Active Medications Acetaminophen (Acetaminophen 325 Mg Tablet) 650 mg PO Q6H PRN PRN Reason: Pain, Mild 1-3,fever,headache Last Admin: 09/11/24 06:01 Dose: 650 mg Documented By: ESTEFANY Albuterol Sulfate (Albuterol Sulfate 90 Mcg 8 Gm Inhaler) 2 puff INHALE Q4H PRN PRN Reason: Shortness Of Breath Or Wheezing Albuterol/Ipratropium (Albuterol/Iprat 2.5/0.5mg 3 Ml Ampul.Neb) 3 ml INHALE Q4H PRN PRN Reason: Shortness of Breath/Wheezing Buprenorphine/Naloxone (Buprenorphine/Naloxone 8/2 Mg Film) 1 film SUBLINGUAL DAILY [facility] Last Admin: 09/11/24 13:17 Dose: 1 film Documented By: KOMAL Buprenorphine/Naloxone (Buprenorphine/Naloxone 8/2 Mg Film) 1 film SUBLINGUAL DAILY@1700 LEVY Buprenorphine/Naloxone (Buprenorphine/Naloxone 8/2 Mg Film) 0.5 film SUBLINGUAL BEDTIME [facility] Calcium Carbonate (Calcium Carbonate 750 Mg Tab.Chew) 750 mg PO Q4H PRN PRN Reason: Heartburn Folic Acid (Folic Acid 1 Mg Tablet) 1 mg PO DAILY [facility] Last Admin: 09/11/24 08:39 Dose: 1 mg Documented By: IGNACIA Heparin Sodium (Porcine) (Heparin Sodium,Porcine 5,000 Unit/Ml Vial) 5,000 unit SUBCUT Q8H [facility] Last Admin: 09/11/24 13:17 Dose: 5,000 unit Documented By: KOMAL Lactated Ringer's (Lr) 1,000 mls @ 125 mls/hr IVCONT .Q8H [facility] Last Admin: 09/11/24 13:17 Dose: 125 mls/hr Documented By: KOMAL Magnesium Hydroxide (Milk Of Magnesia 30 Ml Oral.Susp) 30 ml PO DAILY PRN PRN Reason: Constipation Melatonin (Melatonin 3 Mg Tablet) 6 mg PO BEDTIME PRN PRN Reason: Insomnia Nicotine (Nicotine 21 Mg Patch.Td24) 21 mg TRANSDERMA DAILY [facility] Last Admin: 09/11/24 08:39 Dose: 21 mg Documented By: IGNACIA Non-Formulary Medication (Umeclidinium-Vilanterol [Anoro Ellipta]) 1 each INHALE DAILY [facility] Ondansetron HCl (Ondansetron Hcl 4 Mg/2 Ml Vial) 4 mg IVPUSH Q8H PRN PRN Reason: Nausea and Vomiting Sertraline HCl (Sertraline Hcl 50 Mg Tablet) 50 mg PO DAILY [facility] Last Admin: 09/11/24 13:16 Dose: 50 mg Documented By: KOMAL Sodium Chloride (0.9 % Sodium Chloride Flush 3 Ml Syringe) 3 ml IVFLUSH QSHIFT [facility] Last Admin: 09/11/24 09:16 Dose: Not Given Documented By: IGNACIA Non-Admin Reason: IV Running Thiamine HCl (Thiamine Hcl 100 Mg Tablet) 100 mg PO DAILY [facility] Last Admin: 09/11/24 08:39 Dose: 100 mg Documented By: IGNACIA Labs 09/11/24 06:18 09/11/24 08:53 Labs: Laboratory Results - last 24 hr 09/10/24 09/11/24 09/11/24 23:23 00:07 02:30 MCV 90.2 MCH 33.7 H MCHC 37.4 H RDW 13.1 Plt Count 314 D MPV 9.5 Immature Gran % (Auto) 0.5 H Neut % (Auto) 73.4 H Lymph % (Auto) 13.5 L Ulster % (Auto) 11.8 H Eos % (Auto) 0.4 Baso % (Auto) 0.4 Lymph # (Auto) 1.7 Ulster # (Auto) 1.5 H Eos # (Auto) 0.1 Baso # (Auto) 0.1 Abs Immat Gran (auto) 0.06 H Absolute Neuts (auto) 9.4 H Absolute Nucleated RBC 0.000 Nucleated RBC % (auto) 0.0 Smear Tech's Comments VERIFIED Anion Gap 23 H 19 Estim Creat Clear Calc 24.2 31.3 Estimated GFR 24 32 Random Glucose 129 H 107 Lactic Acid 1.4 Calcium 8.8 D 8.4 Magnesium 3.0 H Total Bilirubin 0.4 AST 63 H ALT 47 H Alkaline Phosphatase 75 Total Creatine Kinase 399 H Troponin I High Sens 5.2 D Total Protein 9.3 H Albumin 5.1 H Lipase 48 25-OH Vitamin D Total Urine Color Urine Appearance Urine pH Ur Specific Ilion Urine Protein Urine Glucose (UA) Urine Ketones Urine Blood Urine Nitrite Ur Leukocyte Esterase Urine RBC Urine WBC Ur Squamous Epith Cells Urine Bacteria Hyaline Casts Urine Osmolality Urine Creatinine Urine Opiates Screen Ur Buprenorphine Scrn Ur Oxycodone Screen Urine Methadone Screen Urine Fentanyl Screen Ur Barbiturates Screen Ur Phencyclidine Scrn Ur Amphetamines Screen U Benzodiazepines Scrn Urine Cocaine Screen U Marijuana (THC) Screen Hepatitis C Ab (EIA) 09/11/24 09/11/24 09/11/24 03:15 06:18 07:11 MCV 92.1 MCH 33.6 H MCHC 36.5 H RDW 13.0 Plt Count 251 MPV 9.9 Immature Gran % (Auto) 0.3 Neut % (Auto) 59.3 Lymph % (Auto) 21.0 Ulster % (Auto) 17.9 H Eos % (Auto) 1.0 Baso % (Auto) 0.5 Lymph # (Auto) 2.3 Ulster # (Auto) 2.0 H Eos # (Auto) 0.1 Baso # (Auto) 0.1 Abs Immat Gran (auto) 0.03 Absolute Neuts (auto) 6.6 Absolute Nucleated RBC 0.000 Nucleated RBC % (auto) 0.0 Smear Tech's Comments Anion Gap Estim Creat Clear Calc Estimated GFR Random Glucose Lactic Acid Calcium Magnesium Total Bilirubin AST ALT Alkaline Phosphatase Total Creatine Kinase Troponin I High Sens Total Protein Albumin Lipase 25-OH Vitamin D Total Cancelled Urine Color Yellow Urine Appearance Clear Urine pH 5.5 Ur Specific Ilion 1.020 Urine Protein 30 (1+) H Urine Glucose (UA) Negative Urine Ketones Trace Urine Blood Negative Urine Nitrite Negative Ur Leukocyte Esterase Trace H Urine RBC 0-2 Urine WBC 0-5 Ur Squamous Epith Cells 6-10 Urine Bacteria None Seen Hyaline Casts >20 Urine Osmolality 515 Urine Creatinine 146.13 Urine Opiates Screen Not Detected Ur Buprenorphine Scrn Positive H Ur Oxycodone Screen Not Detected Urine Methadone Screen Not Detected Urine Fentanyl Screen Not Detected Ur Barbiturates Screen Not Detected Ur Phencyclidine Scrn Not Detected Ur Amphetamines Screen Not Detected U Benzodiazepines Scrn Not Detected Urine Cocaine Screen Not Detected U Marijuana (THC) Screen POSITIVE H Hepatitis C Ab (EIA) 09/11/24 08:53 MCV MCH MCHC RDW Plt Count MPV Immature Gran % (Auto) Neut % (Auto) Lymph % (Auto) Ulster % (Auto) Eos % (Auto) Baso % (Auto) Lymph # (Auto) Ul[place] # (Auto) Eos # (Auto) Baso # (Auto) Abs Immat Gran (auto) Absolute Neuts (auto) Absolute Nucleated RBC Nucleated RBC % (auto) Smear Tech's Comments Anion Gap 10 L Estim Creat Clear Calc 43.3 Estimated GFR 47 Random Glucose 110 Lactic Acid Calcium 8.0 L Magnesium Total Bilirubin 0.6 AST 42 H ALT 31 Alkaline Phosphatase 56 Total Creatine Kinase 301 H Troponin I High Sens Total Protein 6.9 Albumin 4.0 Lipase 25-OH Vitamin D Total 36.1 Urine Color Urine Appearance Urine pH Ur Specific Ilion Urine Protein Urine Glucose (UA) Urine Ketones Urine Blood Urine Nitrite Ur Leukocyte Esterase Urine RBC Urine WBC Ur Squamous Epith Cells Urine Bacteria Hyaline Casts Urine Osmolality Urine Creatinine Urine Opiates Screen Ur Buprenorphine Scrn Ur Oxycodone Screen Urine Methadone Screen Urine Fentanyl Screen Ur Barbiturates Screen Ur Phencyclidine Scrn Ur Amphetamines Screen U Benzodiazepines Scrn Urine Cocaine Screen U Marijuana (THC) Screen Hepatitis C Ab (EIA) Reactive H Assessment and Plan (1) RIGO (acute kidney injury): Status: Acute (2) Hyponatremia: Status: Acute (3) Rhabdomyolysis: Status: Acute (4) Alcohol withdrawal: Status: Acute Plan 53 yo male admitted for RIGO, dehydration, mild rhabdo RIGO/ mild hyponatremia - cr improved, now 1.55 - na still low, now 130 - on LR 125/hr - nephrology consulted suggested pre-renal, dehydration, SIADH from etoh withdrawal/nausea - nephrology will follow - monitor BMP Rhabdomyolysis -Continue IV fluids -CK initially 399, 301 today -follow CPK Dehydration secondary to heat exposure without heat exhaustion or heat stroke -IV fluids continue -follow BMP Opiate use disorder on Suboxone - suboxone Alcohol abuse -CIWA scores remain low - declined addicition med consult -Thiamine and folic acid Tobacco depend/ COPD -Nicotine patch ordered -Patient counseled on the benefits of smoking cessation History of LBKA with recent infection -Wound care consulted to address raised area medial knee secondary to poor fitting prosthesis -no suspension for infection Depression - continue sertraline DVT prophylaxis: Heparin subQ Full code status Quality Stroke Does the patient have a stroke diagnosis?: No Reason for No Anti-thrombotic by Day Two: N/A - Med Ordered VTE Prior VTE?: No VTE Risk Level:: Medical - moderate - high VTE Device Contraindication: N/A - Device Ordered VTE Drug Contraindication: N/A - Med Ordered
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
[2024-09-11] MEDS: LORazepam 0.5 MG TABLET PO (17:30)
[2024-09-11] MEDS: Buprenorphine/Naloxone 8/2 mg FILM 0.5 FILM SUBLINGUAL (19:45)
[2024-09-12 03:21] VITALS: BP 124/69; PULSE 71; RESP 16; TEMP 37; O2SAT 94
[2024-09-12] MEDS: Lactated Ringers 1,000 ML 125 ML IVCONT (03:47)
[2024-09-12] MEDS: Heparin Sodium,Porcine 5,000 UNIT/ML VIAL 5000 UNIT SUBCUT (05:37)
[2024-09-12 06:19] LABS: Hematocrit 34.9 % (42.0-52.0); Hemoglobin 12.6 g/dl (14.0-18.0); Mean Corpuscular HGB Conc 36.1 g/dl (31.0-36.0); Mean Corpuscular Hemoglobin 33.6 pg (27.0-33.0); Mean Corpuscular Volume 93.1 fL (80.0-98.0); Mean Platelet Volume 10.1 fL (9.4-12.4); Platelet Count 187 X10*3/uL (160-400); Red Blood Count 3.75 X10*6/uL (4.60-5.80); Red Cell Distribution Width 12.7 % (11.0-16.0); White Blood Count 5.1 X10*3/uL (4.8-10.8)
[2024-09-12 06:55] LABS: Anion Gap 10 (12-20); Blood Urea Nitrogen 16 mg/dL (9-16); Carbon Dioxide 27 mmol/L (22-29); Chloride 101 mmol/L (96-108); Estimated Glomerular Filt Rate > 60; Glucose Random 84 mg/dL (60-115); Potassium 3.6 mmol/L (3.3-5.1); Sodium 134 mmol/L (135-145)
[2024-09-12 07:33] VITALS: BP 128/70; PULSE 60; RESP 17; TEMP 37.2; O2SAT 96
[2024-09-12] MEDS: Buprenorphine/Naloxone 8/2 mg FILM 1 FILM SUBLINGUAL (08:30)
[2024-09-12] MEDS: Folic Acid 1 MG TABLET PO (08:30)
[2024-09-12] MEDS: Sertraline HCL 50 MG TABLET PO (08:30)
[2024-09-12] MEDS: Thiamine HCL 100 MG TABLET PO (08:30)
[2024-09-12] MEDS: Nicotine 21 MG PATCH.TD24 TRANSDERMA (08:30)
--- NOTE | 2024-09-12 09:05 | P.PNNP_ITS ---
Subjective Subjective Date of Service: 09/12/24 Interval history: following for RIGO after working out in the heat creatinine was 2.77, today 0.59 (baseline) pt states he feels very well today and is hoping to go home Physical Exam 2 Vital Signs: Vital Signs: Last Vital Signs Temp 99 F 09/12/24 07:33 Pulse 60 09/12/24 07:33 Resp 17 09/12/24 07:33 BP 128/70 09/12/24 07:33 Pulse Ox 96 09/12/24 07:33 O2 Del Method Room Air 09/12/24 07:33 BMI result Body Mass Index 19.3 Const: General: comfortable, no acute distress, alert and awake Resp: Effort & Inspection: normal respiratory effort Auscultation: clear to auscultation bilaterally Cardio: Rate: regular rate Rhythm: regular rhythm Heart sounds: S1 normal heart sound present and S2 normal heart sound present GI: Palpation (GI): Soft to palpation and nontender : General: Yes no CVA tenderness Back/Spine/Pelvis: Back: no CVA tenderness Skin: Rashes: no rashes Extrem: General: No edema Objective Data Labs 09/12/24 05:36 09/12/24 05:36 Labs: Laboratory Results - last 24 hr 09/12/24 05:36 WBC 5.1 RBC 3.75 L Hgb 12.6 L Hct 34.9 L MCV 93.1 MCH 33.6 H MCHC 36.1 H RDW 12.7 Plt Count 187 D MPV 10.1 Absolute Nucleated RBC 0.000 Nucleated RBC % (auto) 0.0 Sodium 134 L Potassium 3.6 Chloride 101 Carbon Dioxide 27 Anion Gap 10 L BUN 16 Creatinine 0.59 Estim Creat Clear Calc 99.0 Estimated GFR > 60 Random Glucose 84 Calcium 8.0 L Total Creatine Kinase 142 Microbiology Microbiology Results: Microbiology 09/11/24 00:07 Blood - Venous Blood Culture - Preliminary No growth after 24 hours. 09/11/24 00:07 Blood - Venous Blood Culture - Preliminary No growth after 24 hours. Procedures Date of Service Date of Service: 09/12/24 Assessment & Plan Assessment and plan (1) RIGO (acute kidney injury): Status: Acute Plan RIGO, likely pre-renal injury from dehydration/GI losses from vomiting, poor PO intake for a number of days. creatinine has rapidly improved, now at baseline mild hyponatremia resolving recommend encouraging oral hydration, particularly in heat avoid nephrotoxins will sign off, happy to see again if new concerns or questions arise Discussed with Dr Tovar Time Spent With Patient Time: Total time managing care of this patient today ____ minutes. Progress Note: Quality Stroke Does the patient have a stroke diagnosis?: No Reason for No Anti-thrombotic by Day Two: N/A - Med Ordered
--- NOTE | 2024-09-12 10:31 | MHC.CM.PN ---
IMM 09/11/24 Patient is discharged to home self care. He has arranged for a ride home.
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
== END 2024-09-12 12:22 | disposition home or self-care (01) | DRG 683 ==
LOC: HO.ED 09-11 03:11 → HO.EDOVER 09-11 04:50 → HO.S3 09-11 11:46
PROVIDERS: Nurse Practitioner Family; Physician Assistant; Admitting Provider Student in an Organized Health Care Education/Training Program; Emergency Provider Emergency Medicine; PCP Internal Medicine; Visit Provider Student in an Organized Health Care Education/Training Program
DX: N17.9 Acute kidney failure, unspecified (principal); E87.1 Hypo-osmolality and hyponatremia; M62.82 Rhabdomyolysis; F11.20 Opioid dependence, uncomplicated; F32.A Depression, unspecified; F10.20 Alcohol dependence, uncomplicated; F17.210 Nicotine dependence, cigarettes, uncomplicated; J44.9 Chronic obstructive pulmonary disease, unspecified; Z71.6 Tobacco abuse counseling; E86.0 Dehydration; X30.XXXA Exposure to excessive natural heat, initial encounter; Y99.0 Civilian activity done for income or pay; Z63.79 Other stressful life events affecting family and household; Z89.512 Acquired absence of left leg below knee; Z79.899 Other long term (current) drug therapy
CPT/HCPCS: 36415; 71045; 80048; 80053; 80307; 81001; 82306; 82550; 82570; 83605; 83690; 83735; 83935; 84484; 85025; 85027; 86803; 87040; 93005; 99285; J1644; J2405; J2470; J7120

== ENCOUNTER → 2024-09-10 23:07 | Outpatient (BNV) | payer OTHER, SELFPAY | PROVIDERS: Admitting Provider Student in an Organized Health Care Education/Training Program; Emergency Provider Emergency Medicine; PCP Internal Medicine; Visit Provider Internal Medicine | DX: R07.9 Chest pain, unspecified (principal) | CPT/HCPCS: 93010 ==

== ENCOUNTER → 2024-09-11 04:46 | Outpatient (BNV) | payer OTHER, SELFPAY | PROVIDERS: Admitting Provider Student in an Organized Health Care Education/Training Program; Emergency Provider Emergency Medicine; Visit Provider Nurse Practitioner Family | DX: N17.9 Acute kidney failure, unspecified (principal); E87.1 Hypo-osmolality and hyponatremia; M62.82 Rhabdomyolysis; F10.939 Alcohol use, unspecified with withdrawal, unspecified | CPT/HCPCS: 99223; 99499 ==

== ENCOUNTER → 2024-09-11 04:46 | Outpatient (BNV) | payer OTHER, SELFPAY | PROVIDERS: Admitting Provider Student in an Organized Health Care Education/Training Program; Emergency Provider Emergency Medicine; Visit Provider Nurse Practitioner Family | DX: N17.9 Acute kidney failure, unspecified (principal); E87.1 Hypo-osmolality and hyponatremia | CPT/HCPCS: 99222 ==

== ENCOUNTER 2024-09-22 11:07 | Emergency (ER) | payer OTHER, SELFPAY ==
--- NOTE | ~2024-09-22 | US_ITS ---
EXAMINATION: US TRIPLEX LOWER EXTREMITY, RIGHT CLINICAL INFORMATION: Right lower extremity edema and pain COMPARISON: None available. TECHNIQUE: Color-flow triplex imaging with spectral analysis and compression Doppler were performed on the right lower extremity. FINDINGS: Respiratory variation, normal compression and augmented flow are noted throughout the right lower extremity. The visualized common femoral vein, superficial femoral vein, profunda femoral vein, popliteal vein and midcalf peroneal and posterior tibial venous segments show no evidence of deep venous thrombosis. US/US venous duplex LE RT IMPRESSION: No evidence of deep venous thrombosis involving the right lower extremity. Electronically signed by: Drew Harrell MD 09/22/2024 11:53 AM EDT
[2024-09-22 11:11] VITALS: BP 135/85; PULSE 90; RESP 16; TEMP 36.8; O2SAT 98; BMI 22.7
--- NOTE | 2024-09-22 11:11 | ED.EXTPRO ---
HPI - Extremity Problem General Chief complaint: Extremity Problem Stated complaint: R leg swelling, recent kidney infection Time Seen by Provider: 09/22/24 12:37 Related Data Home Medications ?Medication ?Instructions ?Recorded ?Confirmed albuterol sulfate 2.5 mg/3 mL 2.5 mg inhalation Q4H PRN Wheezing 12/16/23 09/15/24 (0.083 %) solution for nebulization albuterol sulfate 90 mcg/actuation 2 puff inhalation Q4H PRN 12/16/23 09/15/24 aerosol inhaler Shortness Of Breath Or Wheezing buprenorphine 8 mg-naloxone 2 mg 0.5 film sublingual BEDTIME 12/16/23 09/15/24 sublingual film buprenorphine 8 mg-naloxone 2 mg 1 film sublingual DAILY 12/16/23 09/15/24 sublingual film buprenorphine 8 mg-naloxone 2 mg 1 film sublingual DAILY@1700 12/16/23 09/15/24 sublingual film umeclidinium 62.5 mcg-vilanterol 1 ea inhalation DAILY 12/16/23 09/15/24 25 mcg/actuation powdr for inhalation (Anoro Ellipta) acetaminophen 325 mg tablet 650 mg PO Q4H PRN Pain 09/11/24 09/15/24 ibuprofen 600 mg tablet 600 mg PO Q6H 09/11/24 09/15/24 sertraline 50 mg tablet 50 mg PO DAILY 09/11/24 09/15/24 Allergies Allergy/AdvReac Type Severity Reaction Status Date / Time No Known Allergies Allergy Verified 09/22/24 11:14 FORMERLY [facility], [facility] Past Medical History Medical History Encounter for other plastic and reconstructive surgery following medical procedure or healed injury History of pneumothorax Hepatitis C Amputation of left lower extremity below knee Nicotine dependence, cigarettes, uncomplicated RAD (reactive airway disease) Opiate dependence Alcohol abuse COPD (chronic obstructive pulmonary disease) Surgical History History of nasal surgery History of ear surgery History of neck surgery History of below-knee amputation of left lower extremity Social History Social History Household Members: Family Household Members Other:: Cousin Housing: Apartment Do you presently have visiting nurse or other home services: No Alcohol intake: current Alcohol intake frequency: 3 or more drinks per day Alcohol type: beer Comment: pt refuses high risk interventions Patient Tobacco Use Status: Current someday Tobacco user Tobacco use type: Cigarette Cigarettes Per Day: 10 Years Smoked: (onset 8yo - 1/2-1ppd x 45yrs, 30pyh) Smoked in Last 30 Days: Yes e-Cigarette/Vaping Use: Currently Using Second Hand Smoke Exposure: Yes Substance Use Type: Former Substance User and Marijuana Advance Directives: Yes Advance Directives on File: Yes Advance Directives Date on File: 01/23/23 Do you have a plan to hurt others: No Plan service: No Physical Exam Vital Signs: Vital Signs: Last Vital Signs Temp 0 F L 09/22/24 13:12 Pulse 66 09/22/24 13:12 Resp 19 09/22/24 13:12 BP 124/81 09/22/24 13:12 Pulse Ox 97 09/22/24 13:12 O2 Del Method Room Air 09/22/24 13:12 BMI result Body Mass Index 22.7 Course Course Course Narrative: This is an RME performed by Rosangela Ahmadi CNP: Additional HPI, ROS, PE not included below will be deferred to primary provider. 53-year-old male who presents emergency department for evaluation. Yesterday awoke with right lower extremity pain and swelling. Pain extends up the calf and posterior to the right knee. Denies any fevers or chills. Denies any known injury. No rashes or lesions. No chest pain or shortness of breath. Exam: Pitting pedal edema, right calf tenderness upon palpation, +DP/PT pulse. Plan: Serum labs, venous duplex ultrasound Reevaluation(s) Reevaluation #1: See additional note dated 09/22/[address] Hernández Medical Decision Making Lab Data 09/22/24 11:21 09/22/24 11:21 Labs: Lab Results 09/22/24 Range/Units 11:21 WBC 9.8 (4.8-10.8) X10*3/uL RBC 4.19 L (4.60-5.80) X10*6/uL Hgb 14.3 (14.0-18.0) g/dl Hct 40.7 L (42.0-52.0) % MCV 97.1 (80.0-98.0) fL MCH 34.1 H (27.0-33.0) pg MCHC 35.1 (31.0-36.0) g/dl RDW 14.1 (11.0-16.0) % Plt Count 270 D (160-400) X10*3/uL MPV 8.9 L (9.4-12.4) fL Immature Gran % (Auto) 0.3 (0.0-0.4) % Neut % (Auto) 55.5 (45-73) % Lymph % (Auto) 34.8 (20-40) % [place] % (Auto) 5.2 (2-11) % Eos % (Auto) 3.1 (0-4) % Baso % (Auto) 1.1 (0-2) % Lymph # (Auto) 3.4 (1.2-4.9) X10*3/uL [place] # (Auto) 0.5 (0.1-1.2) X10*3/uL Eos # (Auto) 0.3 (0.0-0.4) X10*3/uL Baso # (Auto) 0.1 (0.0-0.2) X10*3/uL Abs Immat Gran (auto) 0.03 (0.00-0.03) X10*3/uL Absolute Neuts (auto) 5.4 (2.0-8.3) x10*3/uL Absolute Nucleated RBC 0.000 (0.0-0.012) X10*3/uL Nucleated RBC % (auto) 0.0 (0.0-0.2) /100WBC PT 10.6 L (10.9-12.4) SEC INR 0.9 (0.9-1.1) Sodium 139 (135-145) mmol/L Potassium 4.1 (3.3-5.1) mmol/L Chloride 103 (96-108) mmol/L Carbon Dioxide 28 (22-29) mmol/L Anion Gap 12 (12-20) BUN 12 (9-16) mg/dL Creatinine 0.79 (0.5-1.4) mg/dL Estim Creat Clear Calc 85.0 Estimated GFR > 60 Random Glucose 115 (60-115) mg/dL Calcium 9.1 D (8.4-10.2) mg/dL Total Bilirubin 0.3 (0.0-1.0) mg/dL AST 38 H (5-37) U/L ALT 26 (0-40) U/L Alkaline Phosphatase 61 (39-117) U/L B-Natriuretic Peptide 155 H (<100) pg/mL Total Protein 7.2 (6.5-8.0) g/dL Albumin 4.2 (3.5-5.0) g/dL Discharge Plan Discharge Clinical Impression: Right leg swelling Patient Disposition: Home, Self-Care Instructions: Leg Edema (ED) Additional Instructions: You have been evaluated for leg swelling ultrasound done today shows no clot your blood work were normal we ask you to call your primary care physician and follow-up with him Prescriptions: No Action albuterol sulfate 2.5 mg /3 mL (0.083 %) solution for nebulization 2.5 mg inhalation Q4H PRN (Reason: Wheezing) albuterol sulfate 90 mcg/actuation HFA aerosol inhaler 2 puff inhalation Q4H PRN (Reason: Shortness Of Breath Or Wheezing) buprenorphine-naloxone 8-2 mg film 1 film sublingual DAILY buprenorphine-naloxone 8-2 mg film 1 film sublingual DAILY@1700 buprenorphine-naloxone 8-2 mg film 0.5 film sublingual BEDTIME umeclidinium-vilanterol [Anoro Ellipta] 62.5-25 mcg/actuation blister with device 1 ea INHALATION DAILY ibuprofen 600 mg tablet 600 mg PO Q6H sertraline 50 mg tablet 50 mg PO DAILY acetaminophen 325 mg Tablet 650 mg PO Q4H PRN (Reason: Pain) Referrals: Gama Banks MD [Primary Care Provider, Internal Medicine] - 09/24/24 Interventions: ED Discharge Assessment Last Done: 09/22/24 13:12 Discharge Date/Time: 09/22/24 13:13 Print Language: Sammarinese
[2024-09-22 11:26] LABS: MANUAL DIFF FLAG NO
[2024-09-22 11:27] LABS: Hematocrit 40.7 % (42.0-52.0); Hemoglobin 14.3 g/dl (14.0-18.0); Imm Gran Abs Auto 0.03 X10*3/uL (0.00-0.03); Imm Gran Pct Auto 0.3 % (0.0-0.4); Lymphocytes Absolute Auto 3.4 X10*3/uL (1.2-4.9); Mean Corpuscular HGB Conc 35.1 g/dl (31.0-36.0); Mean Corpuscular Hemoglobin 34.1 pg (27.0-33.0); Mean Corpuscular Volume 97.1 fL (80.0-98.0); NRBC Abs Auto 0.000 X10*3/uL (0.0-0.012); NRBC Pct Auto 0.0 /100WBC (0.0-0.2); Platelet Count 270 X10*3/uL (160-400); Red Blood Count 4.19 X10*6/uL (4.60-5.80); White Blood Count 9.8 X10*3/uL (4.8-10.8)
[2024-09-22 11:32] LABS: INTERNATIONAL NORM RATIO 0.9 (0.9-1.1); Prothrombin Time 10.6 SEC (10.9-12.4)
[2024-09-22 11:41] LABS: Alanine Aminotransferase 26 U/L (0-40); Albumin Level 4.2 g/dL (3.5-5.0); Alkaline Phosphatase 61 U/L (39-117); Anion Gap 12 (12-20); Aspartate Amino Transferase 38 U/L (5-37); Blood Urea Nitrogen 12 mg/dL (9-16); Calcium 9.1 mg/dL (8.4-10.2); Carbon Dioxide 28 mmol/L (22-29); Chloride 103 mmol/L (96-108); Creatinine Clr Calc Pharmacy 85.0; Estimated Glomerular Filt Rate > 60; Potassium 4.1 mmol/L (3.3-5.1); Sodium 139 mmol/L (135-145); Total Protein 7.2 g/dL (6.5-8.0)
[2024-09-22 11:46] LABS: B Type Natriuretic Peptide 155 pg/mL (<100)
[2024-09-22 12:40] VITALS: BP 124/81; PULSE 66; RESP 19; O2SAT 97
--- NOTE | 2024-09-22 12:44 | PC.NURSE ---
53 M presents to ED with R ankle and foot swelling since yesterday morning. Pt is a L BKA. Pt sts recent kidney infection, seen here. A+OX4 and ambulatory with a prostetic L leg. RR even and unlabored, denies SOB more than baseline, has COPD. Pt denies any pain, just some pressure in upper calf.
--- NOTE | 2024-09-22 12:52 | ED.EXTPRO ---
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 MD Complaint: extremity swelling Onset (ago): day(s) (1) Pain Consistency: constant Location: right Radiation: none Relieving factors: nothing Exacerbating factors: nothing Associated symptoms: denies other symptoms Related Data Home Medications ?Medication ?Instructions ?Recorded ?Confirmed albuterol sulfate 2.5 mg/3 mL 2.5 mg inhalation Q4H PRN Wheezing 12/16/23 09/15/24 (0.083 %) solution for nebulization albuterol sulfate 90 mcg/actuation 2 puff inhalation Q4H PRN 12/16/23 09/15/24 aerosol inhaler Shortness Of Breath Or Wheezing buprenorphine 8 mg-naloxone 2 mg 0.5 film sublingual BEDTIME 12/16/23 09/15/24 sublingual film buprenorphine 8 mg-naloxone 2 mg 1 film sublingual DAILY 12/16/23 09/15/24 sublingual film buprenorphine 8 mg-naloxone 2 mg 1 film sublingual DAILY@1700 12/16/23 09/15/24 sublingual film umeclidinium 62.5 mcg-vilanterol 1 ea inhalation DAILY 12/16/23 09/15/24 25 mcg/actuation powdr for inhalation (Anoro Ellipta) acetaminophen 325 mg tablet 650 mg PO Q4H PRN Pain 09/11/24 09/15/24 ibuprofen 600 mg tablet 600 mg PO Q6H 09/11/24 09/15/24 sertraline 50 mg tablet 50 mg PO DAILY 09/11/24 09/15/24 Allergies Allergy/AdvReac Type Severity Reaction Status Date / Time No Known Allergies Allergy Verified 09/22/24 11:14 Review of Systems Constitutional: Constitutional: Reports no additional constitutional complaints ENT: Reports system reviewed and no additional complaints, except as documented Gastrointestinal: Gastrointestinal: Reports no additional gastrointestinal complaints PMFSH Past Medical History Attestation statement: The following information was validated with the patient. Medical History Encounter for other plastic and reconstructive surgery following medical procedure or healed injury History of pneumothorax Hepatitis C Amputation of left lower extremity below knee Nicotine dependence, cigarettes, uncomplicated RAD (reactive airway disease) Opiate dependence Alcohol abuse COPD (chronic obstructive pulmonary disease) Surgical History History of nasal surgery History of ear surgery History of neck surgery History of below-knee amputation of left lower extremity Social History Social History Household Members: Family Household Members Other:: Cousin Housing: Apartment Do you presently have visiting nurse or other home services: No Alcohol intake: current Alcohol intake frequency: 3 or more drinks per day Alcohol type: beer Comment: pt refuses high risk interventions Patient Tobacco Use Status: Current someday Tobacco user Tobacco use type: Cigarette Cigarettes Per Day: 10 Years Smoked: (onset 8yo - 1/2-1ppd x 45yrs, 30pyh) Smoked in Last 30 Days: Yes e-Cigarette/Vaping Use: Currently Using Second Hand Smoke Exposure: Yes Substance Use Type: Former Substance User and Marijuana Advance Directives: Yes Advance Directives on File: Yes Advance Directives Date on File: 01/23/23 Do you have a plan to hurt others: No Plan service: No Physical Exam Vital Signs: Vital Signs: Last Vital Signs Temp 0 F L 09/22/24 13:12 Pulse 66 09/22/24 13:12 Resp 19 09/22/24 13:12 BP 124/81 09/22/24 13:12 Pulse Ox 97 09/22/24 13:12 O2 Del Method Room Air 09/22/24 13:12 BMI result Body Mass Index 22.7 Patient looks well not toxic afebrile normotensive Const: General: cooperative Nutritional Appearance: average body habitus Orientation/consciousness: patient oriented x3 HEENT: Head: Yes normal to inspection General nose exam: Normal external nose present Face and sinus: Yes normal facial exam Mouth: Normal oral and palatal mucosa present Neck: Neck: Yes normal visual inspection Chest: Chest palpation & inspection: normal inspection of the chest Resp: Effort & Inspection: normal respiratory effort Auscultation: clear to auscultation bilaterally GI: Inspection: Yes normal to inspection Palpation (GI): Soft to palpation, not firm and nontender Percussion: Yes normal to percussion Neuro: General: patient oriented x3 Extrem: Other: Left RIGO examination right lower extremity shows excellent capillary refill in the foot I was able to palpate a strong posterior tibialis pulse, the dorsalis pedis is decreased. Medical Decision Making Medical Decision Making [facility] Narrative: Patient is here with swelling of the right ankle leg reasonable to obtain ultrasound and labs Differential Diagnosis Differential Diagnoses: The differential diagnosis associated with the presentation includes DVT/peripheral vascular disease Admission/Observation Consideration of admission/observation: Escalation of care including admission/observation considered Lab Data [facility] Lab Attestation statement: I reviewed the patient's lab results. 09/22/24 11:21 09/22/24 11:21 Labs: Lab Results 09/22/24 Range/Units 11:21 WBC 9.8 (4.8-10.8) X10*3/uL RBC 4.19 L (4.60-5.80) X10*6/uL Hgb 14.3 (14.0-18.0) g/dl Hct 40.7 L (42.0-52.0) % MCV 97.1 (80.0-98.0) fL MCH 34.1 H (27.0-33.0) pg MCHC 35.1 (31.0-36.0) g/dl RDW 14.1 (11.0-16.0) % Plt Count 270 D (160-400) X10*3/uL MPV 8.9 L (9.4-12.4) fL Immature Gran % (Auto) 0.3 (0.0-0.4) % Neut % (Auto) 55.5 (45-73) % Lymph % (Auto) 34.8 (20-40) % [place] % (Auto) 5.2 (2-11) % Eos % (Auto) 3.1 (0-4) % Baso % (Auto) 1.1 (0-2) % Lymph # (Auto) 3.4 (1.2-4.9) X10*3/uL [place] # (Auto) 0.5 (0.1-1.2) X10*3/uL Eos # (Auto) 0.3 (0.0-0.4) X10*3/uL Baso # (Auto) 0.1 (0.0-0.2) X10*3/uL Abs Immat Gran (auto) 0.03 (0.00-0.03) X10*3/uL Absolute Neuts (auto) 5.4 (2.0-8.3) x10*3/uL Absolute Nucleated RBC 0.000 (0.0-0.012) X10*3/uL Nucleated RBC % (auto) 0.0 (0.0-0.2) /100WBC PT 10.6 L (10.9-12.4) SEC INR 0.9 (0.9-1.1) Sodium 139 (135-145) mmol/L Potassium 4.1 (3.3-5.1) mmol/L Chloride 103 (96-108) mmol/L Carbon Dioxide 28 (22-29) mmol/L Anion Gap 12 (12-20) BUN 12 (9-16) mg/dL Creatinine 0.79 (0.5-1.4) mg/dL Estim Creat Clear Calc 85.0 Estimated GFR > 60 Random Glucose 115 (60-115) mg/dL Calcium 9.1 D (8.4-10.2) mg/dL Total Bilirubin 0.3 (0.0-1.0) mg/dL AST 38 H (5-37) U/L ALT 26 (0-40) U/L Alkaline Phosphatase 61 (39-117) U/L B-Natriuretic Peptide 155 H (<100) pg/mL Total Protein 7.2 (6.5-8.0) g/dL Albumin 4.2 (3.5-5.0) g/dL Independent Interpretation I performed an independent interpretation of an: Ultrasound Interpretation: No DVT Radiology Impression Discussion of test interpretation with radiology: I have reviewed the radiologist's reading. Discharge Plan Discharge Clinical Impression: Right leg swelling Patient Disposition: Home, Self-Care Instructions: Leg Edema (ED) Additional Instructions: You have been evaluated for leg swelling ultrasound done today shows no clot your blood work were normal we ask you to call your primary care physician and follow-up with him Prescriptions: No Action albuterol sulfate 2.5 mg /3 mL (0.083 %) solution for nebulization 2.5 mg inhalation Q4H PRN (Reason: Wheezing) albuterol sulfate 90 mcg/actuation HFA aerosol inhaler 2 puff inhalation Q4H PRN (Reason: Shortness Of Breath Or Wheezing) buprenorphine-naloxone 8-2 mg film 1 film sublingual DAILY buprenorphine-naloxone 8-2 mg film 1 film sublingual DAILY@1700 buprenorphine-naloxone 8-2 mg film 0.5 film sublingual BEDTIME umeclidinium-vilanterol [Anoro Ellipta] 62.5-25 mcg/actuation blister with device 1 ea INHALATION DAILY ibuprofen 600 mg tablet 600 mg PO Q6H sertraline 50 mg tablet 50 mg PO DAILY acetaminophen 325 mg Tablet 650 mg PO Q4H PRN (Reason: Pain) Referrals: Gama Banks MD [Primary Care Provider, Internal Medicine] - 09/24/24 Interventions: ED Discharge Assessment Last Done: 09/22/24 13:12 Discharge Date/Time: 09/22/24 13:13 Print Language: Nigerien
[2024-09-22 13:12] VITALS: BP 124/81; PULSE 66; RESP 19; TEMP -17.7; TEMP 0; O2SAT 97
== END 2024-09-22 13:13 | disposition home or self-care (01) ==
PROVIDERS: Nurse Practitioner Family; Emergency Provider Emergency Medicine; PCP Internal Medicine
DX: R60.0 Localized edema (principal); J44.9 Chronic obstructive pulmonary disease, unspecified; F17.210 Nicotine dependence, cigarettes, uncomplicated; Z79.899 Other long term (current) drug therapy
CPT/HCPCS: 36415; 80053; 83880; 85025; 85610; 93971; 99284

== ENCOUNTER → 2024-09-22 11:15 | Outpatient (BNV) | payer OTHER, SELFPAY | PROVIDERS: PCP Internal Medicine; Visit Provider Radiology Diagnostic Radiology | DX: R60.0 Localized edema (principal); M79.604 Pain in right leg | CPT/HCPCS: 93971 ==

== ENCOUNTER 2024-10-26 18:26 | Emergency (ER) | payer OTHER, SELFPAY ==
--- NOTE | ~2024-10-26 | XR_ITS ---
CLINICAL HISTORY: pain, swelling 5 view left knee Comparison: CR/FL/SR - XR KNEE 1-2 VIEWS LEFT - 11/14/22 11:20 EDT Findings: Changes related to BKA with osteopenia of the proximal tibia and fibula. No definite erosive changes. Moderate to severe medial soft tissue swelling of the knee. The underlying osseous structures are intact. No significant loss of joint space, osteophytes, or erosions. No joint effusion. No radiopaque foreign body. IMPRESSION: 1. Moderate to severe medial soft tissue swelling of the knee. The underlying osseous structures are intact. No significant joint effusion or erosive changes. 2. Changes related to BKA. This document has been electronically signed by: Sonja Clancy MD on 10/26/2024 19:27:40
--- NOTE | ~2024-10-26 | CT_ITS ---
CLINICAL HISTORY: r o Osteo; Infec of Amputated Stump Exam: CT of the left knee with contrast Comparison: Minimal bibasilar atelectasis/pneumonitis, X-rays of the left knee from 10/26/2024. Findings: No MRI available for review at this time. Medial-anterior soft tissue ulceration extends to fascia without definite accentuated into bone to confirm osteomyelitis by CT (imaged 282 of series 4). Djvjy-wg-ofxakdkr effusion present in the knee without bony destructive changes to support septic arthropathy by CT. Mild lateral positioning of the patella as can be seen with patellofemoral stress syndrome. Moderate to severe tricompartment osteoarthritis of the knee. Remodeling with mild resorption is nonspecific of the distal tibia remaining diaphysis. This appears non aggressive and without definite acute or aggressive osteomyelitis by CT. Remodeling also present of the distal remaining fibula diaphysis. Low bone mineralization suggested. Is nonspecific and may be related to disuse phenomenon. Soft tissue fluid is nonspecific distal stump with fluid measuring up to 7 mm thickness (image 54 of series 8). Impression: 1. No acute osteomyelitis by CT. 2. Bzeor-aw-umdtqyfb effusion of the left knee. 3. Osteoarthritis of the left knee. 4. Distal soft tissue fluid is nonspecific and measures 7 mm thickness. Consider attention on follow-up to ensure resolution. 5. Medial-anterior soft tissue ulceration extends to fascia This document has been electronically signed by: Ebenezer Mcgowan MD on 10/27/2024 01:27:40
[2024-10-26 18:36] VITALS: BP 129/82; PULSE 114; RESP 20; TEMP 37.1; O2SAT 94; BMI 21.4
--- NOTE | 2024-10-26 18:36 | ED.GENADULT ---
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 The patient reports for the past 2-3 weeks he has been experiencing discomfort with wearing his prosthetic leg, however today he was unable to put on his prosthetic due to severe pain. Today patient noted erythema of the medial proximal aspect of the left knee, superior to the knee joint, with central area of purulence, patient reports he attempted to pop it with a needle however had worsening pain and presents to the ED for evaluation. The patient also reports some tenderness/pain with erythema to the distal portion of the amputation. Patient denies associated fever/chills, nausea, vomiting, or other acute somatic complaint. The patient denies any recent fall or trauma. Related Data Home Medications ?Medication ?Instructions ?Recorded ?Confirmed albuterol sulfate 2.5 mg/3 mL 2.5 mg inhalation Q4H PRN Wheezing 12/16/23 09/15/24 (0.083 %) solution for nebulization albuterol sulfate 90 mcg/actuation 2 puff inhalation Q4H PRN 12/16/23 09/15/24 aerosol inhaler Shortness Of Breath Or Wheezing buprenorphine 8 mg-naloxone 2 mg 0.5 film sublingual BEDTIME 12/16/23 09/15/24 sublingual film buprenorphine 8 mg-naloxone 2 mg 1 film sublingual DAILY 12/16/23 09/15/24 sublingual film buprenorphine 8 mg-naloxone 2 mg 1 film sublingual DAILY@1700 12/16/23 09/15/24 sublingual film umeclidinium 62.5 mcg-vilanterol 1 ea inhalation DAILY 12/16/23 09/15/24 25 mcg/actuation powdr for inhalation (Anoro Ellipta) acetaminophen 325 mg tablet 650 mg PO Q4H PRN Pain 09/11/24 09/15/24 ibuprofen 600 mg tablet 600 mg PO Q6H 09/11/24 09/15/24 sertraline 50 mg tablet 50 mg PO DAILY 09/11/24 09/15/24 Previous Rx's ?Medication ?Instructions ?Recorded cephalexin 500 mg capsule 500 mg PO QID #28 caps 10/27/24 Allergies Allergy/AdvReac Type Severity Reaction Status Date / Time No Known Allergies Allergy Verified 10/26/24 18:39 Review of Systems Review of Systems: Yes all other systems are reviewed and are negative PMFSH Past Medical History Medical History Encounter for other plastic and reconstructive surgery following medical procedure or healed injury History of pneumothorax Hepatitis C Amputation of left lower extremity below knee Nicotine dependence, cigarettes, uncomplicated RAD (reactive airway disease) Opiate dependence Alcohol abuse COPD (chronic obstructive pulmonary disease) Surgical History History of nasal surgery History of ear surgery History of neck surgery History of below-knee amputation of left lower extremity Social History Social History Household Members: Family Household Members Other:: Cousin Housing: Apartment Do you presently have visiting nurse or other home services: No Alcohol intake: current Alcohol intake frequency: 3 or more drinks per day Alcohol type: beer Comment: pt refuses high risk interventions Patient Tobacco Use Status: Current someday Tobacco user Tobacco use type: Cigarette Cigarettes Per Day: 10 Years Smoked: (onset 8yo - 1/2-1ppd x 45yrs, 30pyh) e-Cigarette/Vaping Use: Currently Using Second Hand Smoke Exposure: Yes Substance Use Type: Former Substance User and Marijuana Advance Directives: Yes Advance Directives on File: Yes Advance Directives Date on File: 01/23/23 Do you have a plan to hurt others: No Plan service: No Physical Exam ED Vital Signs: Vital Signs - 24 hr 10/26/24 18:36 10/26/24 22:25 Temperature 98.7 F 97.8 F Pulse Rate 114 H 78 Respiratory Rate 20 16 Blood Pressure 129/82 142/80 H Pulse Oximetry 94 98 Oxygen Delivery Method Room Air Room Air BMI result Body Mass Index 21.4 CONSTITUTIONAL: The patient appears non-toxic, well nourished and in no acute distress. Vital signs as documented. HEAD: Atraumatic, normocephalic. EYES: EOMs grossly intact, pupils equal, conjunctiva clear, no exudate. ENT: Nares patent, no discharge. Airway patent, no audible stridor, visible mucosa is pink and moist without noted lesions. NECK: Trachea is midline, no obvious masses or gross abnormalities. CHEST: Symmetric movement, normal appearance. LUNGS: LS present and CTAB, no w/r/r. Non-labored work of breathing. CARDIAC: Regular Rhythm, S1/S2 appreciated, no murmurs, rubs or gallops. ABDOMEN: Abdomen soft and non-tender x4 quadrants, no palpable masses or organomegaly. : Deferred. EXTREMITIES: Left BKA appreciated, there is an approximate 6 cm x 5 cm ovoid area of erythema noted to the proximal medial aspect of the left knee with centralized purulence but no significant palpable fluctuance. There is associated mild erythema noted to the distal portion of the amputation. Full nonpainful range of motion of the left knee, no findings of the right lower extremity. Normal tone, moves all extremities spontaneously without reported pain. No other obvious acute injury or deformity noted. NEURO: Alert and oriented x3, CN II-XII appear grossly intact. Cerebellar Functioning grossly intact. No obvious sensory or motor deficits. Speech clear and appropriate. PSYCH: normal affect, appropriate eye contact, fluid speech, with appropriate response to questioning. No reported suicidality or homicidality. SKIN: Warm, dry, color appropriate, normal turgor. No rashes noted. Course Course Course Narrative: Rapid medical examination performed in triage by Irene Weaver PA-C. Patient is a 53 year old assigned male at presenting to the emergency department with a left stump wound. Patient states that he woke up with a lump to his left lower leg stump site and feels generally unwell. Detailed physical exam and review of systems are deferred to the direct sales professional. Labs and imaging ordered. Patient placed back in the waiting room pending room availability and results. Medications Administered Discontinued Medications Generic Name Dose Route Start Last Admin Trade Name Freq PRN Reason Stop Dose Admin Sodium Chloride 1,000 mls @ 999 mls/hr 10/26/24 23:45 10/27/24 01:07 Ns IV 10/27/24 00:45 Infused .Q1H1M LEVY Infusion Iohexol 80 ml 10/27/24 00:33 10/27/24 00:33 Iohexol 350 Mg/Ml 100 Ml Infus..Btl IV 10/27/24 00:34 80 ml ONCE ONE Administration Ketorolac Tromethamine 15 mg 10/26/24 23:40 10/26/24 23:53 Ketorolac Tromethamine 15 Mg/Ml Vial IVPUSH 10/26/24 23:41 15 mg ONCE ONE Administration Medical Decision Making Medical Decision Making [facility] Narrative: 12:01 AM 10/27/2024 (Mando INGRAM): The patient is a 53-year-old male with a history of BKA presenting to the ED for evaluation of possible infection versus abscess of his left BKA. Patient's exam shows erythema with tenderness in the proximal medial left knee as well as the distal stump, no obvious abscess, patient may be suffering from simple cellulitis however given the patient's multiple areas of erythema and laboratory evaluation showing mild leukocytosis of 12.8, we will obtain CT of the extremity to rule out osteomyelitis or deep space infection. 1:32 AM 10/27/2024 (Mando INGRAM): The patient's CT shows no evidence of osteomyelitis or other deep space infection. Patient appears to be suffering from cellulitis, we will treat with Rocephin and discharge with continued cephalosporin antibiotic coverage. Admission/Observation Consideration of admission/observation: Escalation of care including admission/observation considered Lab Data [facility] Lab Attestation statement: I reviewed the patient's lab results. 10/26/24 19:21 10/26/24 19:21 Labs: Lab Results 10/26/24 Range/Units 19:21 WBC 12.8 H (4.8-10.8) X10*3/uL RBC 4.07 L (4.60-5.80) X10*6/uL Hgb 14.1 (14.0-18.0) g/dl Hct 39.5 L (42.0-52.0) % MCV 97.1 (80.0-98.0) fL MCH 34.6 H (27.0-33.0) pg MCHC 35.7 (31.0-36.0) g/dl RDW 13.4 (11.0-16.0) % Plt Count 236 (160-400) X10*3/uL MPV 9.0 L (9.4-12.4) fL Immature Gran % (Auto) 0.2 (0.0-0.4) % Neut % (Auto) 41.3 L (45-73) % Lymph % (Auto) 33.2 (20-40) % [place] % (Auto) 5.2 (2-11) % Eos % (Auto) 19.3 H (0-4) % Baso % (Auto) 0.8 (0-2) % Lymph # (Auto) 4.3 (1.2-4.9) X10*3/uL [place] # (Auto) 0.7 (0.1-1.2) X10*3/uL Eos # (Auto) 2.5 H (0.0-0.4) X10*3/uL Baso # (Auto) 0.1 (0.0-0.2) X10*3/uL Abs Immat Gran (auto) 0.02 (0.00-0.03) X10*3/uL Absolute Neuts (auto) 5.3 (2.0-8.3) x10*3/uL Absolute Nucleated RBC 0.000 (0.0-0.012) X10*3/uL Nucleated RBC % (auto) 0.0 (0.0-0.2) /100WBC Smear Tech's Comments VERIFIED ESR 8 (0-15) MM/HR Sodium 143 (135-145) mmol/L Potassium 3.5 (3.3-5.1) mmol/L Chloride 107 (96-108) mmol/L Carbon Dioxide 24 (22-29) mmol/L Anion Gap 16 (12-20) BUN 17 H (9-16) mg/dL Creatinine 0.71 (0.5-1.4) mg/dL Estim Creat Clear Calc 91.2 Estimated GFR > 60 Random Glucose 135 H (60-115) mg/dL Lactic Acid 1.5 (0.5-2.0) mmol/L Calcium 8.7 (8.4-10.2) mg/dL Magnesium 2.0 (1.6-2.6) mg/dL Total Bilirubin 0.4 (0.0-1.0) mg/dL AST 65 H (5-37) U/L ALT 44 H (0-40) U/L Alkaline Phosphatase 78 (39-117) U/L C-Reactive Protein < 0.10 (< or = 0.50) mg/dL Total Protein 7.8 (6.5-8.0) g/dL Albumin 4.6 (3.5-5.0) g/dL Radiology Impression Discussion of test interpretation with radiology: I have reviewed the radiologist's reading. Radiologist Impression: CLINICAL HISTORY: r o Osteo; Infec of Amputated Stump Exam: CT of the left knee with contrast Comparison: Minimal bibasilar atelectasis/pneumonitis, X-rays of the left knee from 10/26/2024. Findings: No MRI available for review at this time. Medial-anterior soft tissue ulceration extends to fascia without definite accentuated into bone to confirm osteomyelitis by CT (imaged 282 of series 4). Ccjsl-zs-wljszauf effusion present in the knee without bony destructive changes to support septic arthropathy by CT. Mild lateral positioning of the patella as can be seen with patellofemoral stress syndrome. Moderate to severe tricompartment osteoarthritis of the knee. Remodeling with mild resorption is nonspecific of the distal tibia remaining diaphysis. This appears non aggressive and without definite acute or aggressive osteomyelitis by CT. Remodeling also present of the distal remaining fibula diaphysis. Low bone mineralization suggested. Is nonspecific and may be related to disuse phenomenon. Soft tissue fluid is nonspecific distal stump with fluid measuring up to 7 mm thickness (image 54 of series 8). Impression: 1. No acute osteomyelitis by CT. 2. Gwshe-rs-owwfeyrq effusion of the left knee. 3. Osteoarthritis of the left knee. 4. Distal soft tissue fluid is nonspecific and measures 7 mm thickness. Consider attention on follow-up to ensure resolution. 5. Medial-anterior soft tissue ulceration extends to fascia This document has been electronically signed by: Ebenezer Mcgowan MD on 10/27/2024 01:27:40 Discharge Plan Discharge Clinical Impression: Cellulitis Qualifiers: Site of cellulitis: extremity Site of cellulitis of extremity: lower extremity Laterality: left Qualified Code(s): L03.116 - Cellulitis of left lower limb Patient Disposition: Home, Self-Care Instructions: Cellulitis (ED) Additional Instructions: Thank you for choosing [facility]'s Emergency Department for your care today. Thankfully your CT today shows no evidence of a infection in your bone, an abscess, or other deep space infection. Your CT, exam, and laboratory workup is consistent with cellulitis, infection of your skin. At this time there is no indication for incision and drainage, admission to the hospital or continued ED observation, and it is safe to discharge you home. Please take cephalexin as prescribed until it is finished. Please monitor the area and do not hesitate to return to the ED for re-evaluation of any worsening symptoms. You may take alternating (staggered) doses of ibuprofen 600mg and Tylenol 1000mg every 4 hours as needed for any additional pain. Please rest the injured area, and apply ice for 20 minutes every hour. Please stay well hydrated and get plenty of rest. Please follow up with your primary care physician for re-evaluation, additional management of your symptoms, and continued preventative care. If you do not have a primary care physician, please call the [facility] at [phone] to establish a new primary care physician. While waiting to establish your new primary care physician, you can call our [facility] at [phone] for non-emergency needs. Please return to the emergency department if you develop a severe or sudden change in your symptoms, a fever over 100.4 that does not improve with Tylenol or Ibuprofen, recurrent vomiting, or any other new or worsening symptoms or concerns. Prescriptions: New cephalexin 500 mg capsule 500 mg PO QID Qty: 28 0RF No Action albuterol sulfate 2.5 mg /3 mL (0.083 %) solution for nebulization 2.5 mg inhalation Q4H PRN (Reason: Wheezing) albuterol sulfate 90 mcg/actuation HFA aerosol inhaler 2 puff inhalation Q4H PRN (Reason: Shortness Of Breath Or Wheezing) buprenorphine-naloxone 8-2 mg film 1 film sublingual DAILY buprenorphine-naloxone 8-2 mg film 1 film sublingual DAILY@1700 buprenorphine-naloxone 8-2 mg film 0.5 film sublingual BEDTIME umeclidinium-vilanterol [Anoro Ellipta] 62.5-25 mcg/actuation blister with device 1 ea INHALATION DAILY ibuprofen 600 mg tablet 600 mg PO Q6H sertraline 50 mg tablet 50 mg PO DAILY acetaminophen 325 mg Tablet 650 mg PO Q4H PRN (Reason: Pain) Referrals: Gama Banks MD [Primary Care Provider, Internal Medicine] Clinical Impression: Cellulitis Print Language: Serbian
[2024-10-26 19:30] LABS: Hematocrit 39.5 % (42.0-52.0); Hemoglobin 14.1 g/dl (14.0-18.0); Imm Gran Abs Auto 0.02 X10*3/uL (0.00-0.03); Imm Gran Pct Auto 0.2 % (0.0-0.4); Lymphocytes Absolute Auto 4.3 X10*3/uL (1.2-4.9); Mean Corpuscular HGB Conc 35.7 g/dl (31.0-36.0); Mean Corpuscular Hemoglobin 34.6 pg (27.0-33.0); Mean Corpuscular Volume 97.1 fL (80.0-98.0); NRBC Abs Auto 0.000 X10*3/uL (0.0-0.012); NRBC Pct Auto 0.0 /100WBC (0.0-0.2); Platelet Count 236 X10*3/uL (160-400); Red Blood Count 4.07 X10*6/uL (4.60-5.80); SCAN SMEAR FLAG 1; White Blood Count 12.8 X10*3/uL (4.8-10.8)
[2024-10-26 19:32] LABS: MANUAL DIFF FLAG SCAN
[2024-10-26 19:47] LABS: Alanine Aminotransferase 44 U/L (0-40); Albumin Level 4.6 g/dL (3.5-5.0); Alkaline Phosphatase 78 U/L (39-117); Anion Gap 16 (12-20); Aspartate Amino Transferase 65 U/L (5-37); Blood Urea Nitrogen 17 mg/dL (9-16); Calcium 8.7 mg/dL (8.4-10.2); Carbon Dioxide 24 mmol/L (22-29); Chloride 107 mmol/L (96-108); Creatinine Clr Calc Pharmacy 91.2; Estimated Glomerular Filt Rate > 60; Magnesium 2.0 mg/dL (1.6-2.6); Potassium 3.5 mmol/L (3.3-5.1); Sodium 143 mmol/L (135-145); Total Protein 7.8 g/dL (6.5-8.0)
[2024-10-26 22:25] VITALS: BP 142/80; PULSE 78; RESP 16; TEMP 36.6; O2SAT 98
[2024-10-27] MEDS: iohexoL 350 MG/ML 100 ML INFUS..BTL 80 ML IV (00:33)
[2024-10-27 02:14] VITALS: BP 126/67; PULSE 70; RESP 17; TEMP 37; O2SAT 97
== END 2024-10-27 02:28 | disposition home or self-care (01) ==
PROVIDERS: Physician Assistant Medical; Emergency Provider Emergency Medicine; PCP Internal Medicine
DX: L03.116 Cellulitis of left lower limb (principal); M25.462 Effusion, left knee; M25.562 Pain in left knee; R11.0 Nausea; Z79.899 Other long term (current) drug therapy; F17.210 Nicotine dependence, cigarettes, uncomplicated
CPT/HCPCS: 36415; 73562; 73701; 80053; 83605; 83735; 85025; 85652; 86140; 87040; 96361; 96374; 96375; 99284; J0696; J1885; Q9967

== ENCOUNTER → 2024-10-26 18:37 | Outpatient (BNV) | payer OTHER, SELFPAY | PROVIDERS: PCP Internal Medicine; Visit Provider Student in an Organized Health Care Education/Training Program | DX: M85.862 Other specified disorders of bone density and structure, left lower leg (principal) | CPT/HCPCS: 73562 ==

== ENCOUNTER → 2024-10-27 | Outpatient (BNV) | payer OTHER, SELFPAY | PROVIDERS: Emergency Provider Emergency Medicine; PCP Internal Medicine; Visit Provider Radiology Neuroradiology | DX: M17.12 Unilateral primary osteoarthritis, left knee (principal); M25.462 Effusion, left knee | CPT/HCPCS: 73701 ==

== ENCOUNTER 2025-01-06 13:52 | Inpatient (IN) | payer OTHER, SELFPAY ==
[2025-01-06 14:56] VITALS: BP 136/89; PULSE 98; RESP 20; TEMP 36.8; O2SAT 95; BMI 21.8
--- NOTE | 2025-01-06 14:57 | ED.GENADULT ---
HPI - General Adult General Chief complaint: ETOH/Substance Use Stated complaint: Alcohol withdrawal, infection Time Seen by Provider: 01/06/25 18:09 Related Data Home Medications ?Medication ?Instructions ?Recorded ?Confirmed albuterol sulfate 2.5 mg/3 mL 2.5 mg inhalation Q4H PRN Wheezing 12/16/23 01/06/25 (0.083 %) solution for nebulization albuterol sulfate 90 mcg/actuation 2 puff inhalation Q4H PRN 12/16/23 01/06/25 aerosol inhaler Shortness Of Breath Or Wheezing buprenorphine 8 mg-naloxone 2 mg 0.5 film sublingual BEDTIME 12/16/23 01/06/25 sublingual film buprenorphine 8 mg-naloxone 2 mg 1 film sublingual DAILY 12/16/23 01/06/25 sublingual film buprenorphine 8 mg-naloxone 2 mg 1 film sublingual DAILY@1700 12/16/23 01/06/25 sublingual film umeclidinium 62.5 mcg-vilanterol 1 ea inhalation DAILY 12/16/23 01/06/25 25 mcg/actuation powdr for inhalation (Anoro Ellipta) ibuprofen 600 mg tablet 1,200 mg PO BID@0900,1700 09/11/24 01/06/25 sertraline 50 mg tablet 50 mg PO DAILY 09/11/24 01/06/25 Allergies Allergy/AdvReac Type Severity Reaction Status Date / Time No Known Allergies Allergy Verified 01/06/25 14:58 [facility] Past Medical History Medical History (Updated 01/08/25 @ 10:40 by Lolly Kwan CNP) History of below-knee amputation of left lower extremity Encounter for other plastic and reconstructive surgery following medical procedure or healed injury History of pneumothorax Hepatitis C Amputation of left lower extremity below knee Nicotine dependence, cigarettes, uncomplicated RAD (reactive airway disease) Opiate dependence Alcohol abuse COPD (chronic obstructive pulmonary disease) Surgical History History of nasal surgery History of ear surgery History of neck surgery Social History Social History Household Members: Family Household Members Other:: Cousin Housing: Apartment Do you presently have visiting nurse or other home services: No Alcohol intake: current Alcohol intake frequency: 3 or more drinks per day Alcohol type: hard liquor Comment: pt refuses high risk interventions Patient Tobacco Use Status: Former Tobacco user Tobacco use type: Cigarette Cigarettes Per Day: 10 Years Smoked: (onset 8yo - 1/2-1ppd x 45yrs, 30pyh) e-Cigarette/Vaping Use: Currently Using Second Hand Smoke Exposure: Yes Substance Use Type: Marijuana Advance Directives Date on File: 01/23/23 service: No Physical Exam ED Vital Signs: BMI result Body Mass Index 21.8 Course Course Course Narrative: RME, this is a rapid medical exam performed by Arnaldo Bullock please refer to primary provider for complete H&P- 54-year-old male with past medical history significant for left BKA, alcohol abuse presents for evaluation of alcohol abuse and he believes he has been infection in his left stump. He is tremulous in triage. Plan for labs including blood cultures and inflammatory markers care team consult if he is not medically admitted Medications Administered Discontinued Medications Generic Name Dose Route Start Last Admin Trade Name Freq PRN Reason Stop Dose Admin Acetaminophen 650 mg 01/06/25 20:14 01/09/25 14:39 Acetaminophen 325 Mg Tablet PO 650 mg Q6H PRN Administration Pain, Mild 1-3,fever,headache Buprenorphine/Naloxone 0.5 film 01/07/25 21:00 01/08/25 19:34 Buprenorphine/Naloxone 8/2 Mg Film SUBLINGUAL 0.5 film BEDTIME LEVY Administration Buprenorphine/Naloxone 1 film 01/07/25 11:45 01/09/25 07:53 Buprenorphine/Naloxone 8/2 Mg Film SUBLINGUAL 1 film DAILY LEVY Administration Buprenorphine/Naloxone 1 film 01/07/25 17:00 01/08/25 17:57 Buprenorphine/Naloxone 8/2 Mg Film SUBLINGUAL 1 film DAILY@1700 LEVY Administration Diazepam 10 mg 01/06/25 19:13 01/06/25 19:25 Diazepam 5 Mg Tablet PO 01/06/25 19:14 10 mg ONCE ONE Administration Enoxaparin Sodium 40 mg 01/06/25 21:00 01/08/25 19:35 Enoxaparin Sodium 40 Mg/0.4 Ml Syringe SUBCUT 40 mg Q24H LEVY Administration Famotidine 20 mg 01/06/25 21:00 01/09/25 07:53 Famotidine 20 Mg Tablet PO 20 mg BID LEVY Administration Folic Acid 1 mg 01/07/25 09:00 01/09/25 07:53 Folic Acid 1 Mg Tablet PO 01/10/25 08:59 1 mg DAILY LEVY Administration Hydroxyzine HCl 25 mg 01/06/25 20:14 01/09/25 14:39 Hydroxyzine Hcl 25 Mg Tablet PO 25 mg Q6H PRN Administration Anxiety Lactated Ringer's 1,000 mls @ 999 mls/hr 01/06/25 18:30 01/06/25 20:48 Lr IV 01/06/25 20:30 Infused .Q1H1M LEVY Infusion Thiamine HCl 500 mg/ Sodium 105 mls @ 210 mls/hr 01/06/25 18:17 01/06/25 19:40 Chloride IV 01/06/25 18:46 Infused ONCE ONE Infusion Dextrose/Sodium Chloride 1,000 mls @ 100 mls/hr 01/06/25 20:15 01/08/25 22:40 D51/2ns IVCONT Infused .Q10H LEVY Infusion Ibuprofen 1,200 mg 01/07/25 17:00 01/09/25 07:54 Ibuprofen 600 Mg Tablet PO 1,200 mg BID@0900,1700 LEVY Administration Multivitamins/Vitamin C 1 tab 01/07/25 09:00 01/09/25 07:53 Multivitamin Tablet PO 01/10/25 08:59 1 tab DAILY LEVY Administration Phenobarbital 45 mg 01/07/25 09:00 01/08/25 19:34 Phenobarbital 15 Mg Tablet PO 01/08/25 21:01 45 mg BID LEVY Administration Phenobarbital 30 mg 01/09/25 09:00 01/09/25 07:53 Phenobarbital 30 Mg Tablet PO 01/10/25 21:01 30 mg BID LEVY Administration Phenobarbital Sodium 222 mg 01/06/25 18:30 01/06/25 19:07 Phenobarbital Sodium 130 Mg/Ml Im Once IM 01/06/25 18:31 222 mg ONCE ONE Administration Phenobarbital Sodium 167 mg 01/06/25 22:00 01/07/25 01:30 Phenobarbital Sodium 130 Mg/Ml Vial Im Q3hx2 IM 01/07/25 01:01 167 mg Q3H LEVY Administration Phenobarbital Sodium 130 mg 01/07/25 16:05 01/07/25 16:39 Phenobarbital Sodium 130 Mg/Ml Vial IM 01/07/25 16:06 130 mg ONCE ONE Administration Potassium Chloride 40 meq 10/22/25 17:57 01/07/25 18:06 Potassium Chloride Er 20 Meq Tab.Er.Prt PO 01/07/25 17:58 40 meq ONCE ONE Administration Sertraline HCl 50 mg 01/07/25 11:45 01/09/25 07:54 Sertraline Hcl 50 Mg Tablet PO 50 mg DAILY LEVY Administration Sodium Chloride 3 ml 01/07/25 00:00 01/09/25 07:52 0.9 % Sodium Chloride Flush 3 Ml Syringe IVFLUSH 3 ml QSHIFT LEVY Administration Thiamine HCl 100 mg 01/07/25 09:00 01/09/25 07:53 Thiamine Hcl 100 Mg Tablet PO 01/10/25 08:59 100 mg DAILY LEVY Administration Medical Decision Making Lab Data 01/06/25 15:16 01/08/25 20:56 Labs: Lab Results 01/06/25 Range/Units 15:16 WBC 7.3 (4.8-10.8) X10*3/uL RBC 4.05 L (4.60-5.80) X10*6/uL Hgb 13.9 L (14.0-18.0) g/dl Hct 39.8 L (42.0-52.0) % MCV 98.3 H (80.0-98.0) fL MCH 34.3 H (27.0-33.0) pg MCHC 34.9 (31.0-36.0) g/dl RDW 13.4 (11.0-16.0) % Plt Count 162 D (160-400) X10*3/uL MPV 9.5 (9.4-12.4) fL Immature Gran % (Auto) 0.1 (0.0-0.4) % Neut % (Auto) 63.2 (45-73) % Lymph % (Auto) 23.4 (20-40) % [place] % (Auto) 7.4 (2-11) % Eos % (Auto) 4.8 H (0-4) % Baso % (Auto) 1.1 (0-2) % Lymph # (Auto) 1.7 (1.2-4.9) X10*3/uL [place] # (Auto) 0.5 (0.1-1.2) X10*3/uL Eos # (Auto) 0.4 (0.0-0.4) X10*3/uL Baso # (Auto) 0.1 (0.0-0.2) X10*3/uL Abs Immat Gran (auto) 0.01 (0.00-0.03) X10*3/uL Absolute Neuts (auto) 4.6 (2.0-8.3) x10*3/uL Absolute Nucleated RBC 0.000 (0.0-0.012) X10*3/uL Nucleated RBC % (auto) 0.0 (0.0-0.2) /100WBC ESR 5 (0-15) MM/HR Sodium 143 (135-145) mmol/L Potassium 3.6 (3.3-5.1) mmol/L Chloride 106 (96-108) mmol/L Carbon Dioxide 26 (22-29) mmol/L Anion Gap 15 (12-20) BUN 15 (9-16) mg/dL Creatinine 0.64 (0.5-1.4) mg/dL Estim Creat Clear Calc 101.5 Estimated GFR > 60 Random Glucose 71 (60-115) mg/dL Lactic Acid 1.3 (0.5-2.0) mmol/L Calcium 9.4 D (8.4-10.2) mg/dL Total Bilirubin 0.7 (0.0-1.0) mg/dL AST 89 H (5-37) U/L ALT 50 H (0-40) U/L Alkaline Phosphatase 79 (39-117) U/L C-Reactive Protein < 0.10 (< or = 0.50) mg/dL Total Protein 7.8 (6.5-8.0) g/dL Albumin 4.6 (3.5-5.0) g/dL Lipase 19 (8-78) U/L Ethyl Alcohol 100 mg/dL Discharge Plan Discharge Clinical Impression: Alcohol abuse Patient Disposition: Admitted As Inpatient Interventions: Admission Worksheet (ED) Last Done: 01/07/25 09:23 Discharge Date/Time: 01/07/25 16:44
[2025-01-06 15:25] LABS: MANUAL DIFF FLAG NO
[2025-01-06 15:26] LABS: Hematocrit 39.8 % (42.0-52.0); Hemoglobin 13.9 g/dl (14.0-18.0); Imm Gran Abs Auto 0.01 X10*3/uL (0.00-0.03); Imm Gran Pct Auto 0.1 % (0.0-0.4); Lymphocytes Absolute Auto 1.7 X10*3/uL (1.2-4.9); Mean Corpuscular HGB Conc 34.9 g/dl (31.0-36.0); Mean Corpuscular Hemoglobin 34.3 pg (27.0-33.0); Mean Corpuscular Volume 98.3 fL (80.0-98.0); NRBC Abs Auto 0.000 X10*3/uL (0.0-0.012); NRBC Pct Auto 0.0 /100WBC (0.0-0.2); Platelet Count 162 X10*3/uL (160-400); Red Blood Count 4.05 X10*6/uL (4.60-5.80); White Blood Count 7.3 X10*3/uL (4.8-10.8)
[2025-01-06 15:40] LABS: Lipase 19 U/L (8-78)
[2025-01-06 15:45] LABS: Alanine Aminotransferase 50 U/L (0-40); Albumin Level 4.6 g/dL (3.5-5.0); Anion Gap 15 (12-20); Aspartate Amino Transferase 89 U/L (5-37); Blood Urea Nitrogen 15 mg/dL (9-16); Calcium 9.4 mg/dL (8.4-10.2); Carbon Dioxide 26 mmol/L (22-29); Chloride 106 mmol/L (96-108); Creatinine Clr Calc Pharmacy 101.5; Estimated Glomerular Filt Rate > 60; Potassium 3.6 mmol/L (3.3-5.1); Sodium 143 mmol/L (135-145); Total Protein 7.8 g/dL (6.5-8.0)
[2025-01-06 16:01] LABS: Alkaline Phosphatase 79 U/L (39-117)
[2025-01-06 17:35] VITALS: BP 139/86; PULSE 74; RESP 16; TEMP 36.9; O2SAT 97
--- NOTE | 2025-01-06 17:52 | PC.NURSE ---
Pt awake and alert. Presents for ETOH withdrawal and concern for infection to left leg specifically at site of BKA. Small area of stump noted to be red, pt states area of scab that fell off this AM and had pus. Pt states he is looking to get clean from alcohol use . States last drink was this AM, one shot of vodka'. Pt states normally drinks about 2 sleeves of vodka nips per day . Recent of his father, states I needed to have the last drink this AM . At this time, VSS afebrile. Tremors noted, especially to upper extremities. +Nausea and reported emesis. Denies headaches. States hx of withdrawal with hallucinations, denies seizure hx related to withdrawals. Upon entering room, pt placed on cardiac monitoring. Seizure pads placed on stretcher. PIV placed. Call rodriguez within reach. Awaiting ED provider evaluation.
[2025-01-06] MEDS: PHENobarbitaL sodium 130 MG/ML IM ONCE 222 MG IM (19:07)
[2025-01-06] MEDS: Lactated Ringers 1,000 ML 999 ML IV ×2 (19:08→19:26)
--- NOTE | 2025-01-06 20:17 | PM.IMHP ---
History of Present Illness Date of Service: 01/06/25 Chief Complaint: Alcohol withdrawal 54-year-old male with a past medical history of alcohol use disorder, hepatitis-C, opiate dependence on Suboxone, COPD, tobacco dependence; history of left BKA; presented to the hospital today with a chief complaint of tremulousness. Patient mentioned that he has been very frequently; last drink was 01:00 prior to coming to the hospital. Has been tremulous and shaky hence presented to the ER for further evaluation. Patient denied any chest pain or palpitations. Denies any fever chills cough or sputum production. Denies any urinary symptoms. Review of all other systems is negative except mentioned above ER course: Per ER team, patient on presentation noted to be tremulous and shaky concerning for alcohol withdrawal; given phenobarbital. [facility] Medical History (Updated 10/28/24 @ 00:01 by Roland Hernandes) History of below-knee amputation of left lower extremity Encounter for other plastic and reconstructive surgery following medical procedure or healed injury History of pneumothorax Hepatitis C Amputation of left lower extremity below knee Nicotine dependence, cigarettes, uncomplicated RAD (reactive airway disease) Opiate dependence Alcohol abuse COPD (chronic obstructive pulmonary disease) Surgical History History of nasal surgery History of ear surgery History of neck surgery Social History Household Members: Family Household Members Other:: Cousin Housing: Apartment Do you presently have visiting nurse or other home services: No Alcohol intake: current Alcohol intake frequency: 3 or more drinks per day Alcohol type: hard liquor Comment: pt refuses high risk interventions Patient Tobacco Use Status: Current someday Tobacco user Tobacco use type: Cigarette Cigarettes Per Day: 10 Years Smoked: (onset 8yo - 1/2-1ppd x 45yrs, 30pyh) Smoked in Last 30 Days: Yes e-Cigarette/Vaping Use: Currently Using Second Hand Smoke Exposure: Yes Use of substances other than those prescribed or required for medical reasons: Yes Substance Use Type: Marijuana Advance Directives: Yes Advance Directives on File: Yes Advance Directives Date on File: 01/23/23 Do you have a plan to hurt others: No Plan service: No Meds Allergies Allergy/AdvReac Type Severity Reaction Status Date / Time No Known Allergies Allergy Verified 01/06/25 14:58 Active Medications: Current Medications Lactated Ringer's (Lr) 1,000 mls @ 999 mls/hr IV .Q1H1M [facility] Stop: 01/06/25 20:30 Last Admin: 01/06/25 19:26 Dose: 999 mls/hr Pharmacy Consult (Consult Rx Etoh Phenob Im/Po) 1 each MISCELLANE ONCE PRN; Protocol PRN Reason: Consult order Phenobarbital (Phenobarbital 15 Mg Tablet) 45 mg PO BID [facility] Stop: 01/08/25 21:01 Phenobarbital (Phenobarbital 30 Mg Tablet) 30 mg PO BID [facility] Stop: 01/10/25 21:01 Phenobarbital (Phenobarbital 15 Mg Tablet) 15 mg PO DAILY [facility] Stop: 01/12/25 09:01 Phenobarbital Sodium (Phenobarbital Sodium 130 Mg/Ml Vial Im Q3hx2) 167 mg IM Q3H [facility] Stop: 01/07/25 01:01 Home Medications ?Medication ?Instructions ?Recorded ?Confirmed ?Last Taken ?Type albuterol sulfate 2.5 mg/3 mL 2.5 mg inhalation Q4H PRN Wheezing 12/16/23 09/15/24 09/09/24 History (0.083 %) solution for nebulization albuterol sulfate 90 mcg/actuation 2 puff inhalation Q4H PRN 12/16/23 09/15/24 09/09/24 History aerosol inhaler Shortness Of Breath Or Wheezing buprenorphine 8 mg-naloxone 2 mg 0.5 film sublingual BEDTIME 12/16/23 09/15/24 09/09/24 History sublingual film buprenorphine 8 mg-naloxone 2 mg 1 film sublingual DAILY 12/16/23 09/15/24 09/09/24 History sublingual film buprenorphine 8 mg-naloxone 2 mg 1 film sublingual DAILY@1700 12/16/23 09/15/24 09/09/24 History sublingual film umeclidinium 62.5 mcg-vilanterol 1 ea inhalation DAILY 12/16/23 09/15/24 09/09/24 History 25 mcg/actuation powdr for inhalation (Anoro Ellipta) acetaminophen 325 mg tablet 650 mg PO Q4H PRN Pain 09/11/24 09/15/24 Unknown History ibuprofen 600 mg tablet 600 mg PO Q6H 09/11/24 09/15/24 09/09/24 History sertraline 50 mg tablet 50 mg PO DAILY 09/11/24 09/15/24 09/09/24 History Physical Exam Vital Signs and Narrative: Vital Signs: Last Vital Signs Temp 98.5 F 01/06/25 17:35 Pulse 74 01/06/25 17:35 Resp 16 01/06/25 17:35 BP 139/86 01/06/25 17:35 Pulse Ox 97 01/06/25 17:35 O2 Del Method Room Air 01/06/25 17:35 BMI result Body Mass Index 21.8 Gen: Appears be in no acute distress HEENT: NCAT, Moist mucosa. Pulmonary: Vesicular breath sounds, fair air entry CVS: Normal S1-S2 Abdomen: BS+, Soft, Nontender Extremities: Warm well perfused Neuro: Alert and awake. Results Labs 01/06/25 15:16 01/06/25 15:16 Labs: Laboratory Results - last 24 hr 01/06/25 15:16 MCV 98.3 H MCH 34.3 H MCHC 34.9 RDW 13.4 Plt Count 162 D MPV 9.5 Immature Gran % (Auto) 0.1 Neut % (Auto) 63.2 Lymph % (Auto) 23.4 [place] % (Auto) 7.4 Eos % (Auto) 4.8 H Baso % (Auto) 1.1 Lymph # (Auto) 1.7 [place] # (Auto) 0.5 Eos # (Auto) 0.4 Baso # (Auto) 0.1 Abs Immat Gran (auto) 0.01 Absolute Neuts (auto) 4.6 Absolute Nucleated RBC 0.000 Nucleated RBC % (auto) 0.0 ESR 5 Anion Gap 15 Estim Creat Clear Calc 101.5 Estimated GFR > 60 Random Glucose 71 Lactic Acid 1.3 Calcium 9.4 D Total Bilirubin 0.7 AST 89 H ALT 50 H Alkaline Phosphatase 79 C-Reactive Protein < 0.10 Total Protein 7.8 Albumin 4.6 Lipase 19 Ethyl Alcohol 100 Assessment and Plan (1) Alcohol abuse: Status: Acute Plan 54-year-old male with a past medical history of alcohol use disorder, hepatitis-C, opiate dependence on Suboxone, COPD, tobacco dependence; history of left BKA; presented to the hospital today with a chief complaint of tremulousness. 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 Opiate dependence: Patient on Suboxone. To be resumed once med rec is completed in a.m. DVT prophylaxis: Lovenox Code status: Full code Quality Stroke Does the patient have a stroke diagnosis?: No VTE Prior VTE?: No VTE Risk Level:: Medical - moderate - high VTE Device Contraindication: Treatment Not Indicated VTE Drug Contraindication: N/A - Med Ordered
[2025-01-06] MEDS: Dextrose 5 % and 0.45 % NaCl 1,000 ML 100 ML IVCONT (20:49)
[2025-01-06 20:51] VITALS: BP 150/82; PULSE 68; RESP 16; O2SAT 96
--- NOTE | 2025-01-06 21:04 | PHA.MEDREC ---
Addendum entered by Chris Woody, PharmD 01/06/25 21:18: MED REC CHECKED BY [facility] Original Note: Pharmacy Consult ? Medication Reconciliation Pharmacy has completed the medication reconciliation. Spoke with pt and he confirmed his medications. Pt confirmed his Suboxone 8-2mg films and confirmed he takes 1 film in the morning, 1 film at 1700 and 1/2 film at bedtime and pt takes Ibuprofen 600mg tabs 2 tabs (1200mg) BID in the morning and at 1700.
[2025-01-06 21:09] LABS: Appearance Urine Clear; Glucose Urine UA Negative (Negative); PH 7.0 (5.0-9.0); Specific Gravity - Urine 1.015 (1.005-1.025)
[2025-01-06 21:20] LABS: Cannabinoid Screen Urine POSITIVE (Not Detect)
[2025-01-06] MEDS: PHENobarbitaL sodium 130 MG/ML VIAL IM Q3Hx2 167 MG IM (21:58)
[2025-01-06 22:01] VITALS: BP 123/69; PULSE 66; RESP 16; O2SAT 96
[2025-01-07] VITALS (7 sets, daily range): BP systolic 119–148; BP diastolic 72–89; PULSE 60–87; RESP 14–20; TEMP 36.2–36.7; O2SAT 94–98; BMI 25.7
[2025-01-07] MEDS: PHENobarbitaL sodium 130 MG/ML VIAL IM Q3Hx2 167 MG IM (01:30)
[2025-01-07 05:30] LABS: Alanine Aminotransferase 39 U/L (0-40); Albumin Level 3.6 g/dL (3.5-5.0); Alkaline Phosphatase 62 U/L (39-117); Anion Gap 10 (12-20); Aspartate Amino Transferase 74 U/L (5-37); Blood Urea Nitrogen 11 mg/dL (9-16); Calcium 8.2 mg/dL (8.4-10.2); Carbon Dioxide 26 mmol/L (22-29); Chloride 105 mmol/L (96-108); Creatinine Clr Calc Pharmacy 103.1; Estimated Glomerular Filt Rate > 60; Potassium 3.1 mmol/L (3.3-5.1); Sodium 138 mmol/L (135-145); Total Protein 6.2 g/dL (6.5-8.0)
[2025-01-07] MEDS: Dextrose 5 % and 0.45 % NaCl 1,000 ML 100 ML IVCONT ×2 (05:40→15:59)
--- NOTE | 2025-01-07 07:30 | P.PNIM_ITS ---
Subjective Subjective Date of Service: 01/07/25 Interval History: f/u on alcohol withdrawal Physical Exam 2 Vital Signs: Vital Signs: Last Vital Signs Temp 97.8 F 01/07/25 07:17 Pulse 60 01/07/25 07:17 Resp 15 01/07/25 07:17 BP 148/81 H 01/07/25 07:17 Pulse Ox 96 01/07/25 07:17 O2 Del Method Room Air 01/07/25 07:17 BMI result Body Mass Index 21.8 Const: Other: General: AO X 3, no acute distress Resp: CTA bilateral CVS: S1,S2,RRR GI: +BS, NT, no distention Skin: No rash Neuro: tremors in hands Psych: appropriate affect Objective Data Active Medications Acetaminophen (Acetaminophen 325 Mg Tablet) 650 mg PO Q6H PRN PRN Reason: Pain, Mild 1-3,fever,headache Calcium Carbonate (Calcium Carbonate 750 Mg Tab.Chew) 750 mg PO Q4H PRN PRN Reason: Heartburn Enoxaparin Sodium (Enoxaparin Sodium 40 Mg/0.4 Ml Syringe) 40 mg SUBCUT Q24H [facility] Last Admin: 01/06/25 20:48 Dose: 40 mg Documented By: VANE Famotidine (Famotidine 20 Mg Tablet) 20 mg PO BID [facility] Last Admin: 01/06/25 20:49 Dose: 20 mg Documented By: VANE Folic Acid (Folic Acid 1 Mg Tablet) 1 mg PO DAILY [facility] Stop: 01/10/25 08:59 Hydroxyzine HCl (Hydroxyzine Hcl 25 Mg Tablet) 25 mg PO Q6H PRN PRN Reason: Anxiety Dextrose/Sodium Chloride (D51/2ns) 1,000 mls @ 100 mls/hr IVCONT .Q10H [facility] Last Admin: 01/07/25 05:40 Dose: 100 mls/hr Documented By: DOMINIQUE-[place] Magnesium Hydroxide (Milk Of Magnesia 30 Ml Oral.Susp) 30 ml PO DAILY PRN PRN Reason: Constipation Melatonin (Melatonin 3 Mg Tablet) 6 mg PO BEDTIME PRN PRN Reason: Insomnia Multivitamins/Vitamin C (Multivitamin Tablet) 1 tab PO DAILY [facility] Stop: 01/10/25 08:59 Pharmacy Consult (Consult Rx Etoh Phenob Im/Po) 1 each MISCELLANE ONCE PRN; Protocol PRN Reason: Consult order Phenobarbital (Phenobarbital 15 Mg Tablet) 45 mg PO BID [facility] Stop: 01/08/25 21:01 Phenobarbital (Phenobarbital 30 Mg Tablet) 30 mg PO BID [facility] Stop: 01/10/25 21:01 Phenobarbital (Phenobarbital 15 Mg Tablet) 15 mg PO DAILY [facility] Stop: 01/12/25 09:01 Sodium Chloride (0.9 % Sodium Chloride Flush 3 Ml Syringe) 3 ml IVFLUSH QSHIFT [facility] Last Admin: 01/07/25 01:31 Dose: Not Given Documented By: SHIN Non-Admin Reason: IV Running Thiamine HCl (Thiamine Hcl 100 Mg Tablet) 100 mg PO DAILY [facility] Stop: 01/10/25 08:59 Labs 01/06/25 15:16 01/07/25 04:48 Labs: Laboratory Results - last 24 hr 01/06/25 01/06/25 01/07/25 15:16 20:54 04:48 MCV 98.3 H MCH 34.3 H MCHC 34.9 RDW 13.4 Plt Count 162 D MPV 9.5 Immature Gran % (Auto) 0.1 Neut % (Auto) 63.2 Lymph % (Auto) 23.4 [place] % (Auto) 7.4 Eos % (Auto) 4.8 H Baso % (Auto) 1.1 Lymph # (Auto) 1.7 [place] # (Auto) 0.5 Eos # (Auto) 0.4 Baso # (Auto) 0.1 Abs Immat Gran (auto) 0.01 Absolute Neuts (auto) 4.6 Absolute Nucleated RBC 0.000 Nucleated RBC % (auto) 0.0 ESR 5 Anion Gap 15 10 L Estim Creat Clear Calc 101.5 103.1 Estimated GFR > 60 > 60 Random Glucose 71 102 Lactic Acid 1.3 Calcium 9.4 D 8.2 L D Total Bilirubin 0.7 0.9 AST 89 H 74 H ALT 50 H 39 Alkaline Phosphatase 79 62 C-Reactive Protein < 0.10 Total Protein 7.8 6.2 L Albumin 4.6 3.6 Lipase 19 Urine Color Yellow Urine Appearance Clear Urine pH 7.0 Ur Specific [place] 1.015 Urine Protein Negative Urine Glucose (UA) Negative Urine Ketones Negative Urine Blood Negative Urine Nitrite Negative Ur Leukocyte Esterase Negative Urine RBC 0-2 Urine WBC 0-5 Ur Squamous Epith Cells 0-2 Urine Bacteria None Seen Hyaline Casts 0-2 Urine Opiates Screen Not Detected Ur Buprenorphine Scrn Positive H Ur Oxycodone Screen Not Detected Urine Methadone Screen Not Detected Urine Fentanyl Screen Not Detected Ur Barbiturates Screen POSITIVE H Ur Phencyclidine Scrn Not Detected Ur Amphetamines Screen Not Detected U Benzodiazepines Scrn POSITIVE H Urine Cocaine Screen Not Detected U Marijuana (THC) Screen POSITIVE H Ethyl Alcohol 100 Assessment and Plan (1) Alcohol abuse: Status: Acute Plan 54-year-old male with a past medical history of alcohol use disorder, hepatitis- C, opiate dependence on Suboxone, COPD, tobacco dependence; history of left BKA; presented to the hospital today with a Alcohol use disorder and alcohol withdrawal, with active tremors, high risk for DTs, seizures continue CIWA continue Phenobarbital Thiamine folate and multivitamins Addiction med consult Opiate dependence: Suboxone DVT prophylaxis: Lovenox Code status: Full code Quality Stroke Does the patient have a stroke diagnosis?: No VTE Prior VTE?: No VTE Risk Level:: Medical - moderate - high VTE Device Contraindication: Treatment Not Indicated VTE Drug Contraindication: N/A - Med Ordered
--- NOTE | 2025-01-07 10:31 | MHC.CM.PN ---
CM met with Patient at bedside, in the ED and addressed IMM with him, providing Patient with the original and a copy will be placed on the chart. Patient lives in an apartment, in a 2 family house and he uses a cane to assist with mobility. Patient receives his Suboxone from [facility] and home/resume said services is the goal. CM has initiated and will follow for dc planning. PCP is Dr. Banks.
--- NOTE | 2025-01-07 10:36 | MHC.CM.PN ---
CM met with Patient, his , and his [id number] and requested Primary Contact/Yaritza @ [phone] . 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 PT is recommending STR and [facility] SNF is 1ST choice and [facility] is 2nd. CM has initiated and will follow for dc planning. PCP/PA is Sky Wilkins and Patient will require BLS transport at dc. Anel/Sky is the HCP.
[2025-01-07] MEDS: Umeclidinium/Vilanterol 62.5/25 BLST.W.DEV 1 PUFF INHALE (12:39)
--- NOTE | 2025-01-07 16:38 | MHC.RECOVRN ---
Patient had a positive screen for unhealthy alcohol use on admission, subsequently, met with pt to discuss alcohol use, recovery supports, and concerns related to increased risk of alcohol related problems. Pt reports he most recently has been drinking 10-20 shots of ?michael-lemon vodka? for the past 2 months. He reports he was abstinent from alcohol for 8-9 months following his attendance at an IOP program at [facility] but returned to use after his father entered hospice and then .? Pt states most recently, when he wakes, he is extremely tremulous ?to the point where I can?t even walk?. ?Sometimes I wake up in the middle of the night and I have to take a shot or two just to make it to the bathroom?.? Pt reports he is a former IV heroin user and has been utilizing suboxone for approximately 4 years at [facility]. ?It literally made me able to function?. ?When they cut off my leg the doctor took me off my pain meds and it was awful so someone introduced to me heroin and that's where my nightmare began?.? Pt reports he has attended [facility] ED 3 times and local detox facilities ?at least 7 times? in the past year. ?The thing that really helped was the IOP and being on Suboxone?. Pt states his upstairs neighbor is his cousin, is in recovery, and a support he can utilize moving forward.? Pt states that at this time he is unable to attend IOP due to transportation issues and he has declined [facility] referrals ?because I have a lot of stuff to get in order? Pt was reminded of the benefit of IOP, however, he politely declines at this time.? Discussed how alcohol use has impacted health, including negative impact on mental health and overall physical well being.? Discussed risk and reduction strategies including drinking below the recommended limit, seeking help from one of the multiple pathways to recovery, and drinking water between beverages containing alcohol.? Provided pt with written resources including information on inpatient and outpatient treatment, CECILY, harm reduction, &? recovery coaching.? Pt declines intervention, CECILY, or outpatient appt for treatment related to AUD at this time. Pt was provided with TW?s contact information if questions or concerns arise, which he denies at this time?
[2025-01-07] MEDS: Potassium Chloride ER 20 MEQ TAB.ER.PRT 40 MEQ PO (18:06)
[2025-01-08] VITALS (7 sets, daily range): BP systolic 129–157; BP diastolic 74–84; PULSE 56–74; RESP 16–18; TEMP 36.2–37.1; O2SAT 95–97
[2025-01-08] MEDS: Dextrose 5 % and 0.45 % NaCl 1,000 ML 100 ML IVCONT ×2 (02:40→12:30)
[2025-01-08] MEDS: Umeclidinium/Vilanterol 62.5/25 BLST.W.DEV 1 PUFF INHALE (07:55)
[2025-01-08] MEDS: 0.9 % Sodium Chloride Flush 3 ML SYRINGE IVFLUSH (08:23)
--- NOTE | 2025-01-08 09:49 | HO.ADDICTCON ---
History of Present Illness Date of Service: 01/08/2025 Chief Complaint: etoh Reason for Consult: AUD and withdrawal Sources of Information: patient interviewed and chart reviewed HPI Narrative: Patient is a 54 year old male with medical history that includes. COPD, OUD in remission, AUD and Hepatitis C. Present[facility] to [facility] reporting acute alcohol withdrawal. Medically admitted and phenobarbital protocol initiated. Patient seen in room 485-1, he is awake, alert, pleasant and engaged in interview. He reports a long history with AUD, including periods of abstinence. Most recently he reports the of his father has been very challenging and alcohol has been his way to cope. He denies any other substance use In remission from OUD, stable with suboxone--seen at [facility] for this. Has been admitted to various levels of care for AUD treatment Unclear if he has trialled CECILY in the past He reports withdrawal improved from yesterday Tremor still visible, mild no gi sx. mild headache. no anxiety. no diaphoresis or restlessness appetite improved Reports his goal is to stay far away from alcohol Has some recovery supports already in place--personal development coach and family member in recovery who has offered to attend meetings with him Discussed overall health --patient not eating. Reviewed importance of multivit/b complex at home Patient concerned about hepatitis C and would like to work on getting it treated. Has not seen PCP in some time Medical Evaluation Reviewed: Yes Review of Systems Constitutional: Reports as per HPI, Reports headache(s) and Reports weakness Reports headache(s) Reports headache(s) and Reports weakness Diagnostics Vital Signs (24Hr): Vital Signs - 24 hr 01/07/25 12:01 01/07/25 16:58 01/07/25 19:33 Temperature 98 F 97.9 F 98.1 F Pulse Rate 60 87 64 Respiratory Rate 16 18 20 Blood Pressure 139/78 138/89 119/75 Pulse Oximetry 98 94 96 Oxygen Delivery Method Room Air Room Air Room Air 01/07/25 23:02 01/08/25 03:43 01/08/25 07:11 Temperature 97.1 F 97.1 F 98.1 F Pulse Rate 72 59 67 Respiratory Rate 18 18 18 Blood Pressure 128/72 129/74 131/81 Pulse Oximetry 96 96 96 Oxygen Delivery Method Room Air Room Air Room Air 01/08/25 07:56 Temperature Pulse Rate 65 Respiratory Rate 16 Blood Pressure Pulse Oximetry Oxygen Delivery Method BMI result Body Mass Index 25.7 Labs 01/06/25 15:16 01/07/25 04:48 Labs: Laboratory Results - last 48 hr 01/06/25 01/06/25 01/07/25 15:16 20:54 04:48 WBC 7.3 RBC 4.05 L Hgb 13.9 L Hct 39.8 L MCV 98.3 H MCH 34.3 H MCHC 34.9 RDW 13.4 Plt Count 162 D MPV 9.5 Immature Gran % (Auto) 0.1 Neut % (Auto) 63.2 Lymph % (Auto) 23.4 [place] % (Auto) 7.4 Eos % (Auto) 4.8 H Baso % (Auto) 1.1 Lymph # (Auto) 1.7 [place] # (Auto) 0.5 Eos # (Auto) 0.4 Baso # (Auto) 0.1 Abs Immat Gran (auto) 0.01 Absolute Neuts (auto) 4.6 Absolute Nucleated RBC 0.000 Nucleated RBC % (auto) 0.0 ESR 5 Sodium 143 138 Potassium 3.6 3.1 L Chloride 106 105 Carbon Dioxide 26 26 Anion Gap 15 10 L BUN 15 11 Creatinine 0.64 0.63 Estim Creat Clear Calc 101.5 103.1 Estimated GFR > 60 > 60 Random Glucose 71 102 Lactic Acid 1.3 Calcium 9.4 D 8.2 L D Total Bilirubin 0.7 0.9 AST 89 H 74 H ALT 50 H 39 Alkaline Phosphatase 79 62 C-Reactive Protein < 0.10 Total Protein 7.8 6.2 L Albumin 4.6 3.6 Lipase 19 Urine Color Yellow Urine Appearance Clear Urine pH 7.0 Ur Specific [place] 1.015 Urine Protein Negative Urine Glucose (UA) Negative Urine Ketones Negative Urine Blood Negative Urine Nitrite Negative Ur Leukocyte Esterase Negative Urine RBC 0-2 Urine WBC 0-5 Ur Squamous Epith Cells 0-2 Urine Bacteria None Seen Hyaline Casts 0-2 Urine Opiates Screen Not Detected Ur Buprenorphine Scrn Positive H Ur Oxycodone Screen Not Detected Urine Methadone Screen Not Detected Urine Fentanyl Screen Not Detected Ur Barbiturates Screen POSITIVE H Ur Phencyclidine Scrn Not Detected Ur Amphetamines Screen Not Detected U Benzodiazepines Scrn POSITIVE H Urine Cocaine Screen Not Detected U Marijuana (THC) Screen POSITIVE H Ethyl Alcohol 100 Mental Status Exam Mental Status Exam Level of Consciousness: Awake and Appropriate Patient Behavior: Appropriate Affect Description: Calm Speech Pattern: Clear Thought Process: Intact Thought Content: positive for Intact Judgement: Good Medications Medications Current Medications Acetaminophen (Acetaminophen 325 Mg Tablet) 650 mg PO Q6H PRN PRN Reason: Pain, Mild 1-3,fever,headache Last Admin: 01/07/25 20:50 Dose: 650 mg Albuterol Sulfate (Albuterol Sulfate (0.083%) 2.5 Mg/3 Ml Vial.Neb) 2.5 mg INHALE Q4H PRN PRN Reason: Wheezing Albuterol Sulfate (Albuterol Sulfate 90 Mcg 8 Gm Inhaler) 2 puff INHALE Q4H PRN PRN Reason: Shortness Of Breath Or Wheezing Buprenorphine/Naloxone (Buprenorphine/Naloxone 8/2 Mg Film) 0.5 film SUBLINGUAL BEDTIME [facility] Last Admin: 01/07/25 20:45 Dose: 0.5 film Buprenorphine/Naloxone (Buprenorphine/Naloxone 8/2 Mg Film) 1 film SUBLINGUAL DAILY [facility] Last Admin: 01/08/25 08:32 Dose: 1 film Buprenorphine/Naloxone (Buprenorphine/Naloxone 8/2 Mg Film) 1 film SUBLINGUAL DAILY@1700 [facility] Last Admin: 01/07/25 16:39 Dose: 1 film Calcium Carbonate (Calcium Carbonate 750 Mg Tab.Chew) 750 mg PO Q4H PRN PRN Reason: Heartburn Enoxaparin Sodium (Enoxaparin Sodium 40 Mg/0.4 Ml Syringe) 40 mg SUBCUT Q24H [facility] Last Admin: 01/07/25 20:45 Dose: 40 mg Famotidine (Famotidine 20 Mg Tablet) 20 mg PO BID [facility] Last Admin: 01/08/25 08:25 Dose: 20 mg Folic Acid (Folic Acid 1 Mg Tablet) 1 mg PO DAILY [facility] Stop: 01/10/25 08:59 Last Admin: 01/08/25 08:25 Dose: 1 mg Hydroxyzine HCl (Hydroxyzine Hcl 25 Mg Tablet) 25 mg PO Q6H PRN PRN Reason: Anxiety Last Admin: 01/08/25 08:32 Dose: 25 mg Dextrose/Sodium Chloride (D51/2ns) 1,000 mls @ 100 mls/hr IVCONT .Q10H [facility] Last Admin: 01/08/25 02:40 Dose: 100 mls/hr Ibuprofen (Ibuprofen 600 Mg Tablet) 1,200 mg PO BID@0900,1700 [facility] Last Admin: 01/08/25 08:26 Dose: 1,200 mg Magnesium Hydroxide (Milk Of Magnesia 30 Ml Oral.Susp) 30 ml PO DAILY PRN PRN Reason: Constipation Melatonin (Melatonin 3 Mg Tablet) 6 mg PO BEDTIME PRN PRN Reason: Insomnia Multivitamins/Vitamin C (Multivitamin Tablet) 1 tab PO DAILY [facility] Stop: 01/10/25 08:59 Last Admin: 01/08/25 08:32 Dose: 1 tab Pharmacy Consult (Consult Rx Etoh Phenob Im/Po) 1 each MISCELLANE ONCE PRN; Protocol PRN Reason: Consult order Phenobarbital (Phenobarbital 15 Mg Tablet) 45 mg PO BID [facility] Stop: 01/08/25 21:01 Last Admin: 01/08/25 08:25 Dose: 45 mg Phenobarbital (Phenobarbital 30 Mg Tablet) 30 mg PO BID [facility] Stop: 01/10/25 21:01 Phenobarbital (Phenobarbital 15 Mg Tablet) 15 mg PO DAILY [facility] Stop: 01/12/25 09:01 Sertraline HCl (Sertraline Hcl 50 Mg Tablet) 50 mg PO DAILY [facility] Last Admin: 01/08/25 08:26 Dose: 50 mg Sodium Chloride (0.9 % Sodium Chloride Flush 3 Ml Syringe) 3 ml IVFLUSH QSHIFT [facility] Last Admin: 01/08/25 08:23 Dose: 3 ml Thiamine HCl (Thiamine Hcl 100 Mg Tablet) 100 mg PO DAILY [facility] Stop: 01/10/25 08:59 Last Admin: 01/08/25 08:24 Dose: 100 mg Allergies Allergies Allergy/AdvReac Type Severity Reaction Status Date / Time No Known Allergies Allergy Verified 01/06/25 14:58 Assessment & Plan Assessment & Plan (1) Alcohol use disorder, severe, dependence: Status: Acute Code(s): F10.20 - Alcohol dependence, uncomplicated Assessment and Plan: withdrawal improving with phenobarbital at this time declined CECILY--encouraged to discuss with CLEMENTE provider should he change his mind continue thiamine and folic acid at discharge finance business manager to assist patient in coordinating PCP appt Total time managing care of this patient today __30__ minutes. [facility] Past Medical History Medical History (Updated 01/08/25 @ 10:40 by Lolly Kwan CNP) History of below-knee amputation of left lower extremity Encounter for other plastic and reconstructive surgery following medical procedure or healed injury History of pneumothorax Hepatitis C Amputation of left lower extremity below knee Nicotine dependence, cigarettes, uncomplicated RAD (reactive airway disease) Opiate dependence Alcohol abuse COPD (chronic obstructive pulmonary disease) Surgical History Surgical History History of nasal surgery History of ear surgery History of neck surgery Social History Social History Household Members: Family Household Members Other:: Cousin Housing: Apartment Do you presently have visiting nurse or other home services: No Alcohol intake: current Alcohol intake frequency: 3 or more drinks per day Alcohol type: hard liquor Comment: pt refuses high risk interventions Patient Tobacco Use Status: Former Tobacco user Tobacco use type: Cigarette Cigarettes Per Day: 10 Years Smoked: (onset 8yo - 1/2-1ppd x 45yrs, 30pyh) e-Cigarette/Vaping Use: Currently Using Second Hand Smoke Exposure: Yes Substance Use Type: Marijuana Advance Directives Date on File: 01/23/23 service: No
--- NOTE | 2025-01-08 12:31 | HO.PM.IMPN ---
Subjective Subjective Date of Service: 01/08/25 Interval History: f/u on alcohol withdrawal less tremulous Physical Exam Vital Signs: Vital Signs: Last Vital Signs Temp 98.2 F 01/08/25 11:06 Pulse 64 01/08/25 11:06 Resp 18 01/08/25 11:06 BP 136/78 01/08/25 11:06 Pulse Ox 97 01/08/25 11:06 O2 Del Method Room Air 01/08/25 11:06 BMI result Body Mass Index 25.7 Const: Other: General: AO X 3, no acute distress Resp: CTA bilateral CVS: S1,S2,RRR GI: +BS, NT, no distention Skin: No rash Neuro: tremors in hands Psych: appropriate affect Objective Data Active Medications Acetaminophen (Acetaminophen 325 Mg Tablet) 650 mg PO Q6H PRN PRN Reason: Pain, Mild 1-3,fever,headache Last Admin: 01/07/25 20:50 Dose: 650 mg Documented By: SANDOR Albuterol Sulfate (Albuterol Sulfate (0.083%) 2.5 Mg/3 Ml Vial.Neb) 2.5 mg INHALE Q4H PRN PRN Reason: Wheezing Albuterol Sulfate (Albuterol Sulfate 90 Mcg 8 Gm Inhaler) 2 puff INHALE Q4H PRN PRN Reason: Shortness Of Breath Or Wheezing Buprenorphine/Naloxone (Buprenorphine/Naloxone 8/2 Mg Film) 0.5 film SUBLINGUAL BEDTIME [facility] Last Admin: 01/07/25 20:45 Dose: 0.5 film Documented By: SANDOR Buprenorphine/Naloxone (Buprenorphine/Naloxone 8/2 Mg Film) 1 film SUBLINGUAL DAILY [facility] Last Admin: 01/08/25 08:32 Dose: 1 film Documented By: JOEY Buprenorphine/Naloxone (Buprenorphine/Naloxone 8/2 Mg Film) 1 film SUBLINGUAL DAILY@1700 [facility] Last Admin: 01/07/25 16:39 Dose: 1 film Documented By: MAREN Calcium Carbonate (Calcium Carbonate 750 Mg Tab.Chew) 750 mg PO Q4H PRN PRN Reason: Heartburn Enoxaparin Sodium (Enoxaparin Sodium 40 Mg/0.4 Ml Syringe) 40 mg SUBCUT Q24H [facility] Last Admin: 01/07/25 20:45 Dose: 40 mg Documented By: SANDOR Famotidine (Famotidine 20 Mg Tablet) 20 mg PO BID [facility] Last Admin: 01/08/25 08:25 Dose: 20 mg Documented By: JOEY Folic Acid (Folic Acid 1 Mg Tablet) 1 mg PO DAILY [facility] Stop: 01/10/25 08:59 Last Admin: 01/08/25 08:25 Dose: 1 mg Documented By: JOEY Hydroxyzine HCl (Hydroxyzine Hcl 25 Mg Tablet) 25 mg PO Q6H PRN PRN Reason: Anxiety Last Admin: 01/08/25 08:32 Dose: 25 mg Documented By: JOEY Dextrose/Sodium Chloride (D51/2ns) 1,000 mls @ 100 mls/hr IVCONT .Q10H [facility] Last Admin: 01/08/25 02:40 Dose: 100 mls/hr Documented By: SANDOR Ibuprofen (Ibuprofen 600 Mg Tablet) 1,200 mg PO BID@0900,1700 [facility] Last Admin: 01/08/25 08:26 Dose: 1,200 mg Documented By: JOEY Magnesium Hydroxide (Milk Of Magnesia 30 Ml Oral.Susp) 30 ml PO DAILY PRN PRN Reason: Constipation Melatonin (Melatonin 3 Mg Tablet) 6 mg PO BEDTIME PRN PRN Reason: Insomnia Multivitamins/Vitamin C (Multivitamin Tablet) 1 tab PO DAILY [facility] Stop: 01/10/25 08:59 Last Admin: 01/08/25 08:32 Dose: 1 tab Documented By: JOEY Pharmacy Consult (Consult Rx Etoh Phenob Im/Po) 1 each MISCELLANE ONCE PRN; Protocol PRN Reason: Consult order Phenobarbital (Phenobarbital 15 Mg Tablet) 45 mg PO BID [facility] Stop: 01/08/25 21:01 Last Admin: 01/08/25 08:25 Dose: 45 mg Documented By: JOEY Phenobarbital (Phenobarbital 30 Mg Tablet) 30 mg PO BID [facility] Stop: 01/10/25 21:01 Phenobarbital (Phenobarbital 15 Mg Tablet) 15 mg PO DAILY [facility] Stop: 01/12/25 09:01 Sertraline HCl (Sertraline Hcl 50 Mg Tablet) 50 mg PO DAILY [facility] Last Admin: 01/08/25 08:26 Dose: 50 mg Documented By: JOEY Sodium Chloride (0.9 % Sodium Chloride Flush 3 Ml Syringe) 3 ml IVFLUSH QSHIFT [facility] Last Admin: 01/08/25 08:23 Dose: 3 ml Documented By: JOEY Thiamine HCl (Thiamine Hcl 100 Mg Tablet) 100 mg PO DAILY [facility] Stop: 01/10/25 08:59 Last Admin: 01/08/25 08:24 Dose: 100 mg Documented By: JOEY Labs 01/06/25 15:16 01/07/25 04:48 Labs: Laboratory Results - last 24 hr 01/06/25 01/06/25 01/07/25 15:16 20:54 04:48 MCV 98.3 H MCH 34.3 H MCHC 34.9 RDW 13.4 Plt Count 162 D MPV 9.5 Immature Gran % (Auto) 0.1 Neut % (Auto) 63.2 Lymph % (Auto) 23.4 [place] % (Auto) 7.4 Eos % (Auto) 4.8 H Baso % (Auto) 1.1 Lymph # (Auto) 1.7 [place] # (Auto) 0.5 Eos # (Auto) 0.4 Baso # (Auto) 0.1 Abs Immat Gran (auto) 0.01 Absolute Neuts (auto) 4.6 Absolute Nucleated RBC 0.000 Nucleated RBC % (auto) 0.0 ESR 5 Anion Gap 15 10 L Estim Creat Clear Calc 101.5 103.1 Estimated GFR > 60 > 60 Random Glucose 71 102 Lactic Acid 1.3 Calcium 9.4 D 8.2 L D Total Bilirubin 0.7 0.9 AST 89 H 74 H ALT 50 H 39 Alkaline Phosphatase 79 62 C-Reactive Protein < 0.10 Total Protein 7.8 6.2 L Albumin 4.6 3.6 Lipase 19 Urine Color Yellow Urine Appearance Clear Urine pH 7.0 Ur Specific [place] 1.015 Urine Protein Negative Urine Glucose (UA) Negative Urine Ketones Negative Urine Blood Negative Urine Nitrite Negative Ur Leukocyte Esterase Negative Urine RBC 0-2 Urine WBC 0-5 Ur Squamous Epith Cells 0-2 Urine Bacteria None Seen Hyaline Casts 0-2 Urine Opiates Screen Not Detected Ur Buprenorphine Scrn Positive H Ur Oxycodone Screen Not Detected Urine Methadone Screen Not Detected Urine Fentanyl Screen Not Detected Ur Barbiturates Screen POSITIVE H Ur Phencyclidine Scrn Not Detected Ur Amphetamines Screen Not Detected U Benzodiazepines Scrn POSITIVE H Urine Cocaine Screen Not Detected U Marijuana (THC) Screen POSITIVE H Ethyl Alcohol 100 Microbiology Microbiology Results: Microbiology 01/06/25 15:16 Blood Culture - Preliminary Blood - Venous No growth after 24 hours. 01/06/25 15:16 Blood Culture - Preliminary Blood - Venous No growth after 24 hours. Assessment and Plan (1) Alcohol abuse: Status: Acute Plan 54-year-old male with a past medical history of alcohol use disorder, hepatitis-C, opiate dependence on Suboxone, COPD, tobacco dependence; history of left BKA; presented to the hospital today with a Alcohol use disorder and alcohol withdrawal, with active tremors, high risk for DTs, seizures continue CIWA continue Phenobarbital Thiamine folate and multivitamins Addiction med consult dc ivf Opiate dependence: Suboxone DVT prophylaxis: Lovenox Code status: Full code May transfer to [facility] Stroke Does the patient have a stroke diagnosis?: No VTE Prior VTE?: No VTE Risk Level:: Medical - moderate - high VTE Device Contraindication: Treatment Not Indicated VTE Drug Contraindication: N/A - Med Ordered
--- NOTE | 2025-01-08 15:30 | MHC.RECOVRN ---
TW met with pt in to offer continued support and resources. On approach, pt is resting with eyes clothes. He does not respond to name being called, however, respirations are even and unlabored. Pt does not appear to be in acute distress. TW available for ongoing support as needed.
--- NOTE | 2025-01-08 18:38 | PC.NURSE ---
Pt alert and oriented. Independent with cane and prosthesis to toilet. Mild to moderate tremors. Taking Atarax Q6 for anxiety. No other signs of withdrawal. Mild chronic pain in back and left leg. Eating well. Reports that he has a good support person to help him with his recovery when he discharges.
[2025-01-08 21:43] LABS: Anion Gap 13 (12-20); Blood Urea Nitrogen 12 mg/dL (9-16); Calcium 9.0 mg/dL (8.4-10.2); Carbon Dioxide 28 mmol/L (22-29); Chloride 105 mmol/L (96-108); Creatinine Clr Calc Pharmacy 86.2; Estimated Glomerular Filt Rate > 60; Potassium 4.8 mmol/L (3.3-5.1); Sodium 141 mmol/L (135-145)
[2025-01-09 03:19] VITALS: BP 136/78; PULSE 73; RESP 18; TEMP 36.3; O2SAT 97
[2025-01-09 07:35] VITALS: BP 161/83; PULSE 89; RESP 18; TEMP 36.2; O2SAT 98
[2025-01-09] MEDS: Umeclidinium/Vilanterol 62.5/25 BLST.W.DEV 1 PUFF INHALE (07:52)
[2025-01-09] MEDS: 0.9 % Sodium Chloride Flush 3 ML SYRINGE IVFLUSH (07:52)
--- NOTE | 2025-01-09 10:50 | MHC.RECOVRN ---
TW met with pt in 485 to offer continued support Pt denies withdrawal symptoms and states, I fell so much better. I'm glad I came in . Pt reports he plans to reach out to recovery supports upon discharge and is agreeable to working with patient navigator
[2025-01-09 11:47] VITALS: BP 116/67; PULSE 73; RESP 17; TEMP 36.8; O2SAT 97
--- NOTE | 2025-01-09 14:15 | P.DS_ITS ---
DS: Providers Provider Date of Service: 01/09/25 Date of admission: 01/06/25 20:14 Date of discharge: 01/09/25 Primary care physician: Gama Banks MD Consults: 01/07/25 11:42 Addiction Medicine Provider Routine Consulting Provider: Addiction Covering Reason for consultation: Excessive drinking Has provider been notified: No DS: Diagnosis Discharge Diagnosis (1) Alcohol use disorder, severe, dependence: Status: Acute DS: Summary Hospital Course Hospital Course: admission hpi Chief Complaint: Alcohol withdrawal 54-year-old male with a past medical history of alcohol use disorder, hepatitis- C, opiate dependence on Suboxone, COPD, tobacco dependence; history of left BKA; presented to the hospital today with a chief complaint of tremulousness. Patient mentioned that he has been very frequently; last drink was 01:00 prior to coming to the hospital. Has been tremulous and shaky hence presented to the ER for further evaluation. Patient denied any chest pain or palpitations. Denies any fever chills cough or sputum production. Denies any urinary symptoms. Review of all other systems is negative except mentioned above ER course: Per ER team, patient on presentation noted to be tremulous and shaky concerning for alcohol withdrawal; given phenobarbital. hospital course 54-year-old male with a past medical history of alcohol use disorder, hepatitis- C, opiate dependence on Suboxone, COPD, tobacco dependence; history of left BKA; presented to the hospital today with a Alcohol use disorder and alcohol withdrawal, with active tremors, high risk for DTs, seizures. you were treated with phenobarbital, thiamine, folic acid and multivitamin. Was seen by addiction team gave him resources CIWA scores low with no tremors and eager to go home. He is advised on the dangers of alcohol and to follow through the resources given to him to staty sobber Opiate dependence: Suboxone final diagnoses: Alcohol withdrawal alcohol dependence opiate dependency Time Attestation Discharge Coordination Time (in mins): 35 Quality: Safe Use of Opioids Does Pt have an Active Cancer Diagnosis on the Problem List?: No Quality: Stroke Does the patient have a stroke diagnosis?: No Physical Exam Vital Signs: Vital Signs: Last Vital Signs Temp 98.2 F 01/09/25 11:47 Pulse 73 01/09/25 11:47 Resp 17 01/09/25 11:47 BP 116/67 01/09/25 11:47 Pulse Ox 97 01/09/25 11:47 O2 Del Method Room Air 01/09/25 11:47 BMI result Body Mass Index 25.7 DS: Data Data Completed and Pending Completed studies during hospitalization [Text1]: Procedures Detoxification Services for Substance Abuse Treatment (12/16/23) Labs on day of discharge: Laboratory Results - last 24 hr 01/08/25 20:56 Sodium 141 Potassium 4.8 D Chloride 105 Carbon Dioxide 28 Anion Gap 13 BUN 12 Creatinine 0.77 Estim Creat Clear Calc 86.2 Estimated GFR > 60 Random Glucose 86 Calcium 9.0 D Preliminary micro results at discharge 01/06/25 15:16 Blood Culture - Preliminary Blood - Venous No growth after 48 hours. 01/06/25 15:16 Blood Culture - Preliminary Blood - Venous No growth after 48 hours. Discharge Plan Discharge Anticipated Discharge Date/Time: 01/09/25 14:19 Patient Disposition: Home, Self-Care Discharge Diagnosis: alcohol withdrawal Referrals: Dr Bhargav Stovall [Other] - 03/13/25 1:00 pm Referral Note: This is a new pt appt with primary care Gama Banks MD [Primary Care Provider, Internal Medicine] - 1 Week Discharge Medications: Continued albuterol sulfate 2.5 mg /3 mL (0.083 %) solution for nebulization 2.5 mg inhalation Q4H PRN (Reason: Wheezing) albuterol sulfate 90 mcg/actuation HFA aerosol inhaler 2 puff inhalation Q4H PRN (Reason: Shortness Of Breath Or Wheezing) buprenorphine-naloxone 8-2 mg film 1 film sublingual DAILY buprenorphine-naloxone 8-2 mg film 1 film sublingual DAILY@1700 buprenorphine-naloxone 8-2 mg film 0.5 film sublingual BEDTIME umeclidinium-vilanterol [Anoro Ellipta] 62.5-25 mcg/actuation blister with device 1 ea INHALATION DAILY ibuprofen 600 mg tablet 1,200 mg PO BID@0900,1700 sertraline 50 mg tablet 50 mg PO DAILY Discharge Orders: Discharge Order (Routine); Ordered 01/09/25 Ordered By: Tyson Kraft Diet: Advance to usual diet Activity on Discharge: As tolerated Stand Alone Forms: Patient Portal Discharge page Print Language: Bol[place]ian Care Plan Goals: recovery from alcohol withdrawal Health Concerns: alcohol dependence Plan of Treatment: avoid alcohol Assessment: see above
--- NOTE | 2025-01-09 14:36 | MHC.CM.PN ---
PATIENT IS MEDICALLY CLEARED FOR DISCHARGE HOME SELF-CARE, HE WILL TRANSPORT HOME VIA [facility] TODAY.
== END 2025-01-09 15:06 | disposition home or self-care (01) | DRG 897 ==
LOC: HO.ED 18:09 → HO.EDOVER 20:19 → HO.IMC 01-07 16:01
PROVIDERS: Physician Assistant; Admitting Provider Hospitalist; Emergency Provider Emergency Medicine; PCP Internal Medicine; Visit Provider Internal Medicine
DX: F10.239 Alcohol dependence with withdrawal, unspecified (principal); F11.20 Opioid dependence, uncomplicated; Y90.5 Blood alcohol level of 100-119 mg/100 ml; Z89.512 Acquired absence of left leg below knee; Z87.891 Personal history of nicotine dependence; Z79.899 Other long term (current) drug therapy
CPT/HCPCS: 36415; 80048; 80053; 80307; 81001; 83605; 83690; 85025; 85652; 86140; 87040; 94640; 99285; J1650; J2560; J3411; J7120; S9485

== ENCOUNTER → 2025-01-06 20:14 | Outpatient (BNV) | payer OTHER, SELFPAY | PROVIDERS: Admitting Provider Hospitalist; Emergency Provider Emergency Medicine; PCP Internal Medicine; Visit Provider Internal Medicine | DX: F10.10 Alcohol abuse, uncomplicated (principal) | CPT/HCPCS: 99232 ==

== ENCOUNTER → 2025-01-06 20:14 | Outpatient (BNV) | payer OTHER, SELFPAY | PROVIDERS: Admitting Provider Hospitalist; Emergency Provider Emergency Medicine; PCP Internal Medicine; Visit Provider Nurse Practitioner Psychiatric/Mental Health | DX: F10.20 Alcohol dependence, uncomplicated (principal) | CPT/HCPCS: 99222 ==